=== PATIENT | female | born 1960 | race Caucasian/White ===

== ENCOUNTER 2016-09-12 11:19 | Inpatient (IN) | payer MEDICAID ==
[~2016-09-12] VITALS: Ht 162.6 cm; Wt 84.6 kg
[2016-09-12] MEDS ORDERED: CEFEPIME 2GM/50 ML (PMX) 50 ML IVPB STA (11:24)
[2016-09-12] MEDS ORDERED: ACETAMINOPHEN 325 MG TAB PO STA (11:24)
[2016-09-12] MEDS ORDERED: SODIUM CHLORIDE 0.9% 1L BAG IV* STA (11:24)
[2016-09-12] MEDS ORDERED: VANCOMYCIN 1 GM (PMX) 250 ML IVPB ONE (11:30)
--- NOTE | 2016-09-12 12:31 | RADRPT ---
PROCEDURE: XR Chest. CLINICAL INDICATION: Sepsis TECHNIQUE: A single AP view of the chest was obtained. COMPARISON: Chest x-ray dated 08/24/2013 FINDINGS: No focal airspace opacification, pleural effusion or pneumothorax is seen. The cardiomediastinal si lhouette is upper limits of normal in size. The osseous structures demonstrate senescent changes. IMPRESSION: No radiographic evidence of acute cardiopulmonary disease. No significant interval change. RPTAT: HH .Bianca Boyce MD, MD Date Time Electronically viewed and signed by .Bianca Boyce MD, on 09/12/2016 12:31 .G/
[2016-09-12 12:38] LABS: ADD UMIC YES; URINE BILIRUBIN (Dip) 3+ (NEGATIVE); URINE BLOOD (Dip) TRACE (NEGATIVE); URINE KETONES (Dip) TRACE (NEGATIVE); URINE LEUKOCYTE ESTERASE (Dip) NEGATIVE (NEGATIVE); URINE NITRITE (Dip) POSITIVE (NEGATIVE); URINE TOTAL PROTEIN (Dip) TRACE (NEGATIVE); URINE UROBILINOGEN (Dip) 1.0 E.U./dL (0.1-1.0)
[2016-09-12 12:42] LABS: ADD SCAN DIFF NO
[2016-09-12 12:47] LABS: ABNORMAL IP MESSAGE 1; BASOPHILS % 0.2 % (0.0-2.0); EOSINOPHILS % 0.4 % (0.0-7.0); HEMATOCRIT 28.3 % (37.0-47.0); HEMOGLOBIN 9.4 g/dl (12.0-16.0); LYMPHOCYTES # 0.5 10^3/ul (0.8-2.9); LYMPHOCYTES % 11.4 % (15.0-51.0); MEAN CORPUSCULAR HEMOGLOBIN 32.8 pg (29.0-33.0); MEAN CORPUSCULAR HGB CONC 33.2 g/dl (32.0-37.0); MEAN CORPUSCULAR VOLUME 98.6 fl (82.0-101.0); MEAN PLATELET VOLUME 12.4 fl (7.4-10.4); MONOCYTE # 0.3 10^3/ul (0.3-0.9); MONOCYTES % 6.7 % (0.0-11.0); NEUTROPHIL # 3.7 10^3/ul (1.6-7.5); NEUTROPHILS % 80.9 % (39.0-77.0); PLATELET COUNT 57 10^3/UL (140-415); RED BLOOD COUNT 2.87 10^6/ul (4.20-5.40); RED CELL DISTRIBUTION WIDTH 17.8 % (11.5-14.5); WHITE BLOOD COUNT 4.6 10^3/ul (4.8-10.8)
[2016-09-12 12:48] LABS: BACTERIA,URINE RARE; URINE RBCS 0-2 /HPF (0)
[2016-09-12 12:49] LABS: ICTOTEST POSITIVE (NEGATIVE)
[2016-09-12 12:56] LABS: ALBUMIN 2.2 g/dl (3.3-4.9)
[2016-09-12 12:57] LABS: CHLORIDE 108 mmol/L (97-110); POTASSIUM 4.6 mmol/L (3.5-5.1); SODIUM 138 mmol/L (135-144)
[2016-09-12 12:59] LABS: ALBUMIN/GLOBULIN RATIO 0.51; ANION GAP 16 (8-16); ASPARTATE AMINO TRANSFERASE 122 IU/L (15-46); BILIRUBIN,INDIRECT 2.1 mg/dl (0-1.1); BILIRUBIN,TOTAL 5.4 mg/dl (0.2-1.3); CARBON DIOXIDE 19 mmol/L (21-31); CREATININE 0.56 mg/dl (0.44-1.00); TOTAL PROTEIN 6.5 g/dl (6.1-8.1)
[2016-09-12 13:00] LABS: ALANINE AMINOTRANSFERASE 62 IU/L (13-69); ALKALINE PHOSPHATASE 228 IU/L (42-121); BLOOD UREA NITROGEN 10 mg/dl (7-20); CALCIUM 7.7 mg/dl (8.4-10.2); GLUCOSE 262 mg/dl (70-220)
[2016-09-12 13:01] LABS: INR 1.73; PROTIME 20.4 Sec (12.2-14.2); PT RATIO 1.6
[2016-09-12 13:02] LABS: MUCUS,URINE MANY; URINE COLOR AMBER (YELLOW)
[2016-09-12 13:04] LABS: PARTIAL THROMBOPLASTIN TIME 35.1 Sec (25.0-35.0)
--- NOTE | 2016-09-12 13:20 | RADRPT ---
PROCEDURE: US Abdomen. CLINICAL INDICATION: abdominal pain TECHNIQUE: Multiple real-time images were acquired of the patient's right upper quadrant abdomen a nd retroperitoneum utilizing a high resolution transducer. COMPARISON: None FINDINGS: The study is limited due to overlying bowel gas. The liver is not well seen. The liver demonstrates heterogeneous echogenicity. The liver is normal in size and no focal solid l esions are seen. The liver measures 14.8 cm in length. The portal vein is patent. No intrahepatic bi liary dilatation is seen. Multiple mobile gallstones are identified within the gallbladder. There is mild pericholecystic flu id . There is borderline gallbladder wall thickening, measuring 3 mm. The common bile duct measures 4 mm in maximal dimension. The visualized portions of the pancreas are unremarkable. The tail of the pancreas is not seen. No free fluid is identified. The right kidney is normal in size, and demonstrate normal echogenicity and cortical thickness. The right kidney measures 10.4 cm in long dimension. There is no evidence of hydronephrosis. There are no kidney stones. RPTAT: AA IMPRESSION: Limited study due to overlying bowel gas. Gallstones with mild pericholecystic fluid and borderline gallbladder wall thickening. Further evalu ation with a HIDA scan is recommended to rule out acute cholecystitis. Heterogeneous echogenicity of the liver. .Gerald Mcnally MD, Date Time Electronically viewed and signed by .Gerald Mcnally MD, on 09/12/2016 13:19 .S/
[2016-09-12 13:26] LABS: TROPONIN-I < 0.012 ng/ml (0.00-0.12)
--- NOTE | 2016-09-12 13:39 | ERA ---
ER Documentation Chief Complaint Date/Time DATE: 09/12/16 TIME: 13:35 Chief Complaint BIB RA FOR EVAL OF CHILLS AND NAUSEA FROM CLINIC. HPI Patient is a 48-year-old female with abdominal pain and jaundice. Please note the history and physical exam is limited secondary to patient's mental status at this time. The patient was brought in by ambulance. She had a pain of 8 out of 10. She says that she has a liver problem. Upon review of old medical records the patient had one previous visit to the ER in 2013. She does not know the name of her primary doctor. She does seem confused. ROS All systems reviewed and are negative except as per history of present illness. Medications Home Meds No Active Prescriptions or Reported Meds Allergies Allergies: Coded Allergies: No Known Allergy (Unverified , 08/24/13) PMhx/Soc Hx Miscellaneous Medical Probl: Yes (DM) Hx Alcohol Use: No Hx Substance Use: No Hx Tobacco Use: No Smoking Status: Never smoker FmHx Family History: diabetes Physical Exam Vitals Vital Signs Date Time Temp Pulse Resp B/P Pulse Ox O2 Delivery O2 Flow Rate FiO2 09/12/16 13:30 98.6 71 24 119/58 97 Room Air 09/12/16 11:25 Nasal Cannula 2 09/12/16 11:21 101.8 79 18 111/78 100 Physical Exam Const: Jaundice Head: Atraumatic Eyes: Normal Conjunctiva ENT: Normal External Ears, Nose and Mouth. Neck: Full range of motion..~ No meningismus. Resp: Clear to auscultation bilaterally Cardio: Regular rate and rhythm, no murmurs Abd: Diffuse tenderness to palpation without rebound or guarding Skin: Diffuse jaundice Back: No midline or flank tenderness Ext: No cyanosis, or edema Neur: Awake but confused Result Diagram: 09/12/16 1220 09/12/16 1220 Results 24 hrs Laboratory Tests Test 09/12/16 12:20 Activated Partial Thromboplast Time 35.1Sec Alanine Aminotransferase (ALT/SGPT) 62IU/L Albumin 2.2g/dl Albumin/Globulin Ratio 0.51 Alkaline Phosphatase 228IU/L Ammonia 99umol/l Anion Gap 16 Aspartate Amino Transf (AST/SGOT) 122IU/L Basophils # 0.010^3/ul Basophils % 0.2% Blood Urea Nitrogen 10mg/dl Calcium Level 7.7mg/dl Carbon Dioxide Level 19mmol/L Chloride Level 108mmol/L Creatinine 0.56mg/dl Direct Bilirubin 3.30mg/dl Eosinophils # 0.010^3/ul Eosinophils % 0.4% Globulin 4.30g/dl Glucose Level 262mg/dl Hematocrit 28.3% Hemoglobin 9.4g/dl INR International Normalized Ratio 1.73 Indirect Bilirubin 2.1mg/dl Lactic Acid Level 4.2mmol/L Lymphocytes # 0.510^3/ul Lymphocytes % 11.4% Mean Corpuscular Hemoglobin 32.8pg Mean Corpuscular Hemoglobin Concent 33.2g/dl Mean Corpuscular Volume 98.6fl Mean Platelet Volume 12.4fl Monocytes # 0.310^3/ul Monocytes % 6.7% Neutrophils # 3.710^3/ul Neutrophils % 80.9% Nucleated Red Blood Cells # 0.010^3/ul Nucleated Red Blood Cells % 0.0/100WBC Platelet Count 5710^3/UL Potassium Level 4.6mmol/L Prothrombin Time 20.4Sec Prothrombin Time Ratio 1.6 Red Blood Count 2.8710^6/ul Red Cell Distribution Width 17.8% Sodium Level 138mmol/L Total Bilirubin 5.4mg/dl Total Protein 6.5g/dl Troponin I < 0.012ng/ml Urine Bacteria RARE Urine Bilirubin 3+ Urine Clarity CLEAR Urine Color SISSY Urine Epithelial Cells RARE Urine Glucose 0.1%% Urine Hemoglobin TRACE Urine Ictotest POSITIVE Urine Ketones TRACE Urine Leukocyte Esterase NEGATIVE Urine Microscopic RBC 0-2/HPF Urine Microscopic WBC 0-2/HPF Urine Mucus MANY Urine Nitrite POSITIVE Urine Specific [place] >=1.030 Urine Total Protein TRACE Urine Urobilinogen 1.0 E.U./dL Urine pH 5.5 White Blood Count 4.610^3/ul Current Medications Medications (Trade) Dose Ordered Sig/Guilherme Route PRN Reason Start Time Stop Time Status Last Admin Dose Admin Sodium Chloride (NS) 2,330 ml BOLUS OVER 2 HOURS STAT IV* 09/12/16 11:24 09/12/16 11:26 DC 09/12/16 11:24 Acetaminophen 650 mg 650 mg ONCE STAT PO 09/12/16 11:24 09/12/16 11:26 DC 09/12/16 11:24 Cefepime HCl 50 ml @ 100 mls/hr ONCE STAT IVPB 09/12/16 11:24 09/12/16 11:53 DC 09/12/16 11:24 Vancomycin HCl (Vancocin) 250 ml @ 125 mls/hr ONCE ONCE IVPB 09/12/16 11:30 09/12/16 13:29 DC 09/12/16 13:12 Lactulose (Enulose) 20 gm ONCE ONCE PO 09/12/16 14:00 09/12/16 14:01 Ondansetron HCl (Zofran Inj) 4 mg BRIDGE ORDER PRN IV NAUSEA AND/OR VOMITING 09/12/16 14:00 09/13/16 13:59 Acetaminophen (Tylenol Tab) 650 mg ER BRIDGE PRN PO MILD PAIN/FEVER 09/12/16 14:00 09/13/16 13:59 Procedures/MDM EKG read by me: Rate/Rhythm: Regular rate and rhythm at a rate of 77 Intervals: Normal Impression: No evidence of ischemia or arrhythmia Chest x-ray negative per radiology. Ultrasound of the gallbladder shows gallstones, thickened gallbladder wall, and mild pericholecystic fluid per radiology. Admit MDM: Patient's infectious symptoms have not stabilized and the patient is at risk of rapid decompensation. The patient will be admitted for careful hydration, antibiotic therapy, and infectious source control. Severe Sepsis criteria: Infectious source: Cholangitis End organ damage indicated by: Lactate greater than 2 Sepsis Management: Time of recognition of sepsis: Upon arrival Within 3 hours of recognition: Blood cultures x 2 before broad-spectrum antibiotics: Yes 30 ml/kg NS bolus Completed Initial lactate 4.2 Repeat lactate pending Time of recognition of septic shock: 12:20 Septic Shock Assessment: Any lactic acid > 4.0 yes Persistent hypotension (SBP < 90 or 40 mmHg drop, MAP < 65) despite 30 mL/kg IV fluid bolus No Volume Re-assessment for Septic Shock (post 30 ml/kg bolus): Temp 98.6, BP 119/58, HR 71, RR 24, Pox 97% Heart Regular rate & rhythm Lungs No crackles Skin jaundice Cap Refill Less than 2 seconds Peripheral pulses Radially present Persistent Hypotension Treatment: Comfort care No Central line Not Required Vasopressor started Not required I considered further perfusion assessment with CVP measurement, SCVO2, bedside ultrasound volume assessment, passive leg raise, trial of further fluid bolus. And proceeded with 30 ml/kg fluid bolus of NSS, broad spectrum antibiotics, and admission. I spoke with Dr. Zarate from the paddle team for admission as the patient does not know her primary doctor has never been admitted before. I also spoke with Dr. Yo from general surgery who will see the patient in consultation. Accepting Care Team Current data and ongoing care discussed. Admitting Physician: Dr. Zarate Fitness Assistant(s): Dr. Yo Outstanding Data: Culture results and repeat lactic acid Critical Care: Critical care time 45 minutes excluding all billable procedures Emergent fluid management while maintaining close respiratory support. Provision of immediate and broad-spectrum antibiotic therapy. Simultaneous assessment for possible sources in order to direct targeted therapy. Consideration for invasive and chemical support to prevent cardiopulmonary collapse. Departure Diagnosis: Primary Impression: Septic shock Additional Impressions: Fever with chills Cholangitis Condition: Serious LAKEISHA MULLEN MD Sep 12, 2016 13:39
[2016-09-12] MEDS ORDERED: ACETAMINOPHEN 325 MG TAB PO PRN (14:00)
[2016-09-12] MEDS ORDERED: ONDANSETRON 4 MG INJ IV PRN ×2 (14:00→17:30)
[2016-09-12] MEDS ORDERED: LACTULOSE 30ML CUP PO ONE (14:00)
--- NOTE | 2016-09-12 14:22 | RADRPT ---
PROCEDURE: CT Abdomen and Pelvis without contrast. CLINICAL INDICATION: Abdominal pain TECHNIQUE: CT of the abdomen and pelvis was performed on a multi-detector scanner without IV contr ast. Coronal and sagittal images were reformatted from the axial data set. One or more of the foll owing dose reduction techniques were used: automated exposure control, adjustment of the mA and/or kV according to patient size, use of iterative reconstruction technique. CTDI = 18.6 mGy. DLP = 103 5.97 mGy-cm. COMPARISON: Ultrasound, 09/12/2016 FINDINGS: CT abdomen: The lung bases are clear. There is mild cardiomegaly, without pericardial effusion. The liver is c irrhotic, without gross evidence of focal hepatic mass. Cholelithiasis is seen, without evidence fo r cholecystitis. Common bile duct stent is in place. No biliary dilatation is identified. Splenom egaly is noted measuring 15 cm. Large perisplenic varices are noted. Pancreas, adrenal glands and kidneys are grossly unremarkable. No urolithiasis or obstructive uropathy is identified. The stoma ch is grossly unremarkable. The aorta is of normal caliber. There is no retroperitoneal lymphadenopathy. The albaro hepatis reg ion is clear. CT pelvis: Small amount of ascites is noted. No bowel obstruction, free intraperitoneal air or abscess is seen . Mild retained fecal material is suggestive of constipation. The appendix is well visualized and normal. There is no diverticulosis, diverticulitis or colitis. Urinary bladder, uterus and adnexa are grossly unremarkable. No pelvic mass or lymphadenopathy is seen. The surrounding osseous structures are remarkable for degenerative spondylosis of the spine. No ost eolytic or osteoblastic lesion is detected. IMPRESSION: 1. The liver is cirrhotic, with signs of portal hypertension including splenomegaly, large perisple dilma varices, and small amount of ascites. 2. Cholelithiasis is noted without evidence for cholecystitis. Common bile duct stent is in place. 3. There is mild cardiomegaly. 4. Mild retained fecal material may indicate constipation. 5. No mass or lymphadenopathy is identified. RPTAT: EE .Candelario Olivas MD, MD Date Time Electronically viewed and signed by .Candelario Olivas MD, on 09/12/2016 14:21 .R/
[2016-09-12] MEDS ORDERED: IBUPROFEN 800 MG TAB PO ONE (15:30)
[2016-09-12 16:30] VITALS: TEMP 100.5
[2016-09-12] MEDS ORDERED: VANCOMYCIN IV PER PHARMACY XX SCH (17:30)
[2016-09-12] MEDS ORDERED: GLUCOSE GEL 15 GRAM TUBE PO PRN ×2 (18:00)
[2016-09-12] MEDS ORDERED: GLUCOSE GEL 15 GRAM TUBE BUCCAL PRN (18:00)
[2016-09-12] MEDS ORDERED: PIPER-TAZO 3.375 GM IV (PMX) 100 ML IVPB SCH (18:00)
[2016-09-12] MEDS ORDERED: DEXTROSE 50% 50 ML SYRINGE IV PRN ×2 (18:00)
[2016-09-12] MEDS ORDERED: GLUCAGON 1 MG INJ IM PRN (18:00)
[2016-09-12 18:10] VITALS: BP 102/52; PULSE 82; RESP 82
[2016-09-12] MEDS ORDERED: VANCOMYCIN 500MG/NS (PMX) 100 ML IVPB SCH (18:15)
--- NOTE | 2016-09-12 18:26 | CONS ---
Date/Time of Note Date/Time of Note DATE: 09/12/16 TIME: 18:12 Assessment/Plan Assessment/Plan Additional Assessment/Plan Abdominal pain/nausea/vomiting * Likely secondary to pancreatitis * Elevated bilirubin * Rule out choledocholithiasis * IVF Hydration * Nausea and pain control * NPO till pain free * Review MRCP * ERCP if clinically indicated, pt advised of R/B/A of procedure and she provides informed consent to proceed * Monitor LFTs, amylase, lipase * Recommend Surgery consult Liver Cirrhosis Paracentesis prn Fluid cytology with paracentesis Review of hepatitis panel Diabetes Management per Primary GERD Continue PPI twice daily Further recommendations depend on clinical course Patient seen in collaboration with Dr. Singh Consultation Date/Type/Reason Admit Date/Time Sep 12, 2016 at 13:32 Initial Consult Date Type of Consultation: Gastroenterology Reason for Consultation Abdominal pain 24 HR Interval Summary Free Text/Dictation Mrs. Leti Enriquez is a 48-year-old female that presents to the ED with reports of worsening abdominal pain, nausea, vomiting for the last week. Patient states the last day symptoms worsened and was unable to complete office visit to primary care provider. Patient has history of hyperbilirubinemia and status post ERCP with stent placement [facility] roughly 1 month ago. Per patient's daughter she also had liver biopsy. CT notes liver cirrhosis. Patient and daughter deny a history of alcohol abuse, chemical exposure, blood transfusion outside of the [place], and IV drug use. Patient's daughter also reports history of intermittent anxieties but denies paracentesis. Patient's daughter reports that liver biopsy to rule out liver cancer workup was in process at [facility]. At bedside patient also reports chills. She denies diarrhea, fever, hematemesis, shortness of breath, chest pain, and dysuria. Patient states at last hospitalization a cholecystectomy at [facility] was not recommended. Exam/Review of Systems Vital Signs Vitals Vital Signs Date Time Temp Pulse Resp B/P Pulse Ox O2 Delivery O2 Flow Rate FiO2 09/12/16 16:30 100.5 81 17 104/56 100 Room Air 09/12/16 11:25 2 Exam Constitutional: alert, oriented, well developed Psych: nl mood/affect Head: normocephalic Eyes: EOMI, nl conjunctiva, nl lids ENMT: nl external ears & nose, nl lips & teeth, nl nasal mucosa & septum Respiratory: clear to auscultation, normal air movement Cardiovascular: regular rate and rhythm Gastrointestinal: soft, epigastric and right upper quadrant tender Musculoskeletal: nl extremities to inspection Neurological: ROPE MACHINE SETTER II-XII 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 Results Result Diagram: 09/12/16 1220 09/12/16 1220 Results 24 hrs Laboratory Tests Test 09/12/16 12:20 09/12/16 14:20 09/12/16 17:23 Activated Partial Thromboplast Time 35.1 H Alanine Aminotransferase (ALT/SGPT) 62 Albumin 2.2 L Albumin/Globulin Ratio 0.51 Alkaline Phosphatase 228 H Ammonia 99 H Anion Gap 16 Aspartate Amino Transf (AST/SGOT) 122 H Basophils # 0.0 Basophils % 0.2 Blood Urea Nitrogen 10 Calcium Level 7.7 L Carbon Dioxide Level 19 L Chloride Level 108 Creatinine 0.56 Direct Bilirubin 3.30 H Eosinophils # 0.0 Eosinophils % 0.4 Globulin 4.30 H Glucose Level 262 H Hematocrit 28.3 L Hemoglobin 9.4 L INR International Normalized Ratio 1.73 Indirect Bilirubin 2.1 H Lactic Acid Level 4.2 *H 1.3 Lymphocytes # 0.5 L Lymphocytes % 11.4 L Mean Corpuscular Hemoglobin 32.8 Mean Corpuscular Hemoglobin Concent 33.2 Mean Corpuscular Volume 98.6 Mean Platelet Volume 12.4 H Monocytes # 0.3 Monocytes % 6.7 Neutrophils # 3.7 Neutrophils % 80.9 H Nucleated Red Blood Cells # 0.0 Nucleated Red Blood Cells % 0.0 Platelet Count 57 L Potassium Level 4.6 Prothrombin Time 20.4 H Prothrombin Time Ratio 1.6 Red Blood Count 2.87 L Red Cell Distribution Width 17.8 H Sodium Level 138 Total Bilirubin 5.4 H Total Protein 6.5 Troponin I < 0.012 Urine Bacteria RARE Urine Bilirubin 3+ H Urine Clarity CLEAR Urine Color SISSY Urine Epithelial Cells RARE Urine Glucose 0.1% H Urine Hemoglobin TRACE Urine Ictotest POSITIVE Urine Ketones TRACE H Urine Leukocyte Esterase NEGATIVE Urine Microscopic RBC 0-2 Urine Microscopic WBC 0-2 Urine Mucus MANY Urine Nitrite POSITIVE H Urine Specific [place] >=1.030 H Urine Total Protein TRACE Urine Urobilinogen 1.0 E.U./dL Urine pH 5.5 White Blood Count 4.6 L Bedside Glucose 239 H Medications Medications Current Medications Piperacillin Sod/ Tazobactam Sod (Zosyn 3.375gm/ 100 ml (Pmx)) 100 ml @ 200 mls /hr Q8 IVPB ; Start 09/12/16 at 22:00; Status UNV Ondansetron HCl (Zofran Inj) 4 mg Q6H PRN IV NAUSEA AND/OR VOMITING; Start 09/12 at 17:30; Status UNV Pantoprazole (Protonix Iv) 40 mg DAILY@06 IV ; Start 09/13/16 at 06:00; Status UNV Docusate Sodium 100 mg 100 mg BID PO ; Start 09/12/16 at 21:00; Status UNV Sodium Chloride (NS) 1,000 ml @ 125 mls/hr Q8H IV ; Start 09/12/16 at 17:30; Status UNV Miscellaneous Information (* Miscellaneous Pharmacy Order) HYPOGLYCEMIA PROTOCOL w... ONCE ONCE XX ; Start 09/12/16 at 17:30; Stop 09/12/16 at 17:31; Status UNV Miscellaneous Information (* Miscellaneous Pharmacy Order) Discontinue Glyburide , Glipizide,... ONCE ONCE XX ; Start 09/12/16 at 17:30; Stop 09/12/16 at 17:31; Status UNV Miscellaneous Information (* Miscellaneous Pharmacy Order) Discontinue all previ... ONCE ONCE XX ; Start 09/12/16 at 17:30; Stop 09/12/16 at 17:31; Status UNV JULITO STARKS Sep 12, 2016 18:25
[2016-09-12] MEDS: SOD CHLORIDE 0.9% 1,000 ML IV SCH (18:41)
[2016-09-12] MEDS: INSULIN ASPART [NOVOLOG] 3 ML PEN SC SCH ×2 (18:42→22:08)
[2016-09-12 18:57] LABS: CK-MB 0.3 ng/ml (0.0-2.4)
[2016-09-12 19:00] LABS: TROPONIN-I 0.019 ng/ml (0.00-0.12)
[2016-09-12 20:21] VITALS: BP 110/51; RESP 19
[2016-09-12] MEDS: PANTOPRAZOLE 40 MG INJ IV SCH (20:36)
[2016-09-12] MEDS: DOCUSATE SODIUM 100 MG CAP PO SCH (20:36)
[2016-09-12 21:31] LABS: HAAIG REFLEX REFLEX FILED
[2016-09-12 21:50] LABS: ALANINE AMINOTRANSFERASE 51 IU/L (13-69); AMYLASE 37 U/L (11-123); ASPARTATE AMINO TRANSFERASE 104 IU/L (15-46)
[2016-09-12 23:34] LABS: HEPATITIS B CORE ANTIBODY NEGATIVE (NEGATIVE)
[2016-09-13] VITALS (9 sets, daily range): BP systolic 92–145; BP diastolic 41–67; PULSE 60–70; RESP 16–19; Ht 162.6 cm; Wt 84.6 kg
[2016-09-13 01:53] LABS: CK-MB 0.92 ng/ml (0.0-2.4)
[2016-09-13 01:56] LABS: TROPONIN-I 0.034 ng/ml (0.00-0.12)
[2016-09-13] MEDS: PIPER-TAZO 3.375 GM IV (PMX) 100 ML IVPB SCH ×3 (05:40→22:14)
[2016-09-13] MEDS: SOD CHLORIDE 0.9% 1,000 ML IV SCH ×2 (05:42→09:30)
[2016-09-13] MEDS: PANTOPRAZOLE 40 MG INJ IV SCH ×2 (05:46→18:00)
[2016-09-13] MEDS ORDERED: VANCOMYCIN 1.25 GM in SOD CHLORIDE 0.9% 250 ML IVPB SCH (06:00)
[2016-09-13] MEDS ORDERED: PANTOPRAZOLE 40 MG INJ IV SCH (06:00)
[2016-09-13] MEDS: morphine 4 MG/ML VIAL IV PRN ×2 (06:36→10:38)
[2016-09-13] MEDS ORDERED: CEFAZOLIN 1 GM INJ ONE (07:00)
[2016-09-13] MEDS ORDERED: LIDOCAINE 2% (SDV) 5 ML INJ ONE (07:00)
--- NOTE | 2016-09-13 07:06 | HP ---
DATE OF ADMISSION: 09/12/2016 PRESENTING COMPLAINT: Chills, nausea and abdominal pain. HISTORY OF PRESENTING COMPLAINT: Ms. Leti Enriquez is a Prydein[place]-speaking only female, a 56-year-o ld, who presents to us, being referred from as an outpatient because of fever, chills and severe jaundice. Of note is that this patient was recently managed at [facility] about a m onth ago for liver disease and at that time she ultimately had a liver biopsy and she had a common b ile duct stent placed because of severe jaundice. Per the daughter, the liver biopsy was inconclusi ve and the patient was supposed to follow up for further care. , from where she was referred to the emergency room here. She was found to be septic in our ER and is being admitted for further workup and management. The patient's complaint is nausea and severe abdominal pain in the epigastric and right upper quadrant regions, as well as severe jaundice and reduced urinary output. Other oral n that, she denies chest pain. She denies cough. She denies passing out episodes. They have not n oticed any change in her mentation. PAST MEDICAL HISTORY: Positive for diabetes mellitus and now chronic liver cirrhosis, for which the cause is unclear. PAST SURGICAL HISTORY: x1 only, and CBD stent placement. ALLERGIES: NO KNOWN DRUG ALLERGIES. SOCIAL HISTORY: The patient has never smoked, never drank alcohol. Denies illicit drug use. FAMILY HISTORY: Negative. REVIEW OF SYSTEMS: Review of systems was done and pertinent findings are as in the HPI. PHYSICAL EXAMINATION: VITAL SIGNS: Her temperature when she first came in was 101.8, pulse 79, respirations 18, blood pre ssure 111/70, saturations 100% on oxygen via nasal cannula at 2 liters a minute. At the time of my review temperature is 100.5, pulse 81, respirations 17, blood pressure 104/56, sat urations are 100% on room air. GENERAL EXAMINATION: She was visibly jaundiced in her skin and her sclerae. HEENT: Head normocephalic. No evidence of trauma. She was calm, cooperative with the exam. Mucus membranes were dry. Posterior pharynx was clear of exudate. NECK: Supple, nontender. The patient was warm to touch. CHEST: Clear to auscultation. Good air entry on both sides. CARDIOVASCULAR: S1 and S2. ABDOMEN: Tender in the epigastric and right upper quadrant areas, although soft. She did have norm al active bowel sounds. EXTREMITIES: Lower extremities with mild edema bilaterally. NEUROLOGIC: No focal deficits noted. PSYCHIATRIC: She was cooperative with the exam. In the emergency room she was given Motrin, lactulose, vancomycin, cefepime and Tylenol. LABORATORY VALUES: She has a leukopenia of 4.6, hemoglobin normocytic normochromic, but low at 9.7. Her platelet count was markedly reduced at 57. She had 80% neutrophilia, without bandemia. Lacti c acid was elevated at 4.2. Her glucose was elevated at 262. Calcium was a little low at 7.7. Douglas irubin was elevated at 5.02 total, direct 3.3, indirect 2.1. AST was just about double ALT, at 122 a nd 62. Alkaline phosphatase was elevated at 288. Ammonia level was also elevated at 99. INR was e levated at 1.7. PT and PTT were also concurrently elevated. Albumin was low at 2.2, and urinalysis was nitrite positive, glucose positive, 0 to 2 white cells, rare bacteria and trace hemoglobin and ketones. EKG was normal sinus rhythm with tachycardia. Chest x-ray was unremarkable on my review. Ultrasound of the gallbladder showed gallstones, mild pe richolecystic fluid and gallbladder wall thickening. CT of the abdomen showed a cirrhotic liver wit h portal hypertension, splenomegaly and varices, as well as small ascites. It does show cholelithia sis without cholecystitis, of the CBD stent in place, cardiomegaly, as well as some constipati on. ASSESSMENT: 1. Sepsis. The source could be an infected CBD stent versus a urinary tract infection. 2. Hyperammonemia without hepatic encephalopathy. 3. Chronic anemia. 4. Chronic liver cirrhosis, source unclear, with evidence of obstruction. 5. Cholelithiasis, without imaging evidence of cholecystitis at this time. 6. Diabetes mellitus type 2, with suboptimal control. PLAN: At this point, I believe that the CBD stone needs to be assessed and probably removed for cul tures, so a gastroenterology consultation has been obtained, and blood cultures as well as urine cul tures have been sent. The patient was started on antipyretics, aggressive IV fluid hydration and br oad spectrum antibiotics. I have spoken with GI and will defer to their recommendations for further management. In the interim though, the patient would benefit from serial labs, lactulose therapy, and will try to obtain reports from [facility] regarding the biopsy findings, as well as the circums tances surrounding CBD stent placement. Dr. Yo has been consulted from the surgical team for pr obable cholecystectomy and I have spoken with Dr. Joie Singh from the GI team for probable ERCP. It would be interesting to find out the cause for the patient's cirrhosis and the patient may requir e a repeat biopsy if the previous biopsy results are not available. However, again, I will defer to the specialist for further recommendations. An infectious disease consult will also be obtained fo r aggressive antibiotic therapy. Please note that acute cholangitis is also significant differentia l in the management of this patient. She is quite ill and in serious condition and we will have to keep a real close eye on her. For prophylaxis, she has severe coagulopathy already. She will be on SCDs only, and will have to provide vitamin K and FFP if we find any evidence of bleeding. She will be put on IV PPI and will be admitted as she does have varices. I will keep a close eye on these as well. I have spoken with the patient's daughter in detail, I have spoken with and a nswered questions. Admission time was more than 1 hour. Dictated By: LOU BUSTOS MD, BA/MARILYN Conf#: [id number] DID#: [id number]
--- NOTE | 2016-09-13 07:12 | CONS ---
DATE OF ADMISSION: 09/12/2016 DATE OF CONSULTATION: 09/12/2016 TYPE OF CONSULTATION: General Surgery REASON FOR CONSULTATION: Gallstones and jaundice. HISTORY OF PRESENT ILLNESS: The patient is a 48-year-old female who has liver cirrhosis and ascites. She is a patient at [facility] and approximately a month ago underwent an ERCP with stent placement for jaundice as well as a liver biopsy. She also has known gallstones. She was brought here by paramedics today because of intractable nausea and vomiting as well as confusion. She was noted to be deeply icteric, and imaging showed gallstones without ductal dilatation. She was admitted and seen in GI consultation. She has, according to her children, improved slightly since she has arrived. OUTPATIENT MEDICATIONS: Unknown. ALLERGIES: NONE. REVIEW OF SYSTEMS: The patient as noted above includes the fact that the patient is awaiting placement for liver transplant. PHYSICAL EXAMINATION: GENERAL: The patient is a 56-year-old German-speaking female who is deeply icteric. HEAD, EARS, EYES, NOSE, AND THROAT sclerae icterus. LUNGS: Clear. ABDOMEN: Soft and nontender. EXTREMITIES: Unremarkable. LABORATORY DATA: The patient's hematocrit is 28.3 with a white count of 4600 with slight left shift with 80.9 polys. Bilirubin is 5.4. Lactic acid is 5.8, ammonia is 112. INR is 1.73. IMPRESSION: This patient has liver failure from ascites and is pending being placed on liver transplant list. There is no role for surgery for gallstones in this setting. She has been seen, and further recommendations are pending GI consultation and further imaging. I will follow with you. Dictated By: KATHERYN CROOK/MARILYN Conf#: [id number] DID#: [id number] MTDD
[2016-09-13 07:46] LABS: AMYLASE 42 U/L (11-123)
[2016-09-13] MEDS: INSULIN ASPART [NOVOLOG] 3 ML PEN SC SCH ×4 (08:00→20:37)
[2016-09-13] MEDS: DOCUSATE SODIUM 100 MG CAP PO SCH ×2 (08:20→20:36)
[2016-09-13 08:43] LABS: ADD SCAN DIFF NO
[2016-09-13 08:47] LABS: ALBUMIN 1.7 g/dl (3.3-4.9)
[2016-09-13 08:48] LABS: POTASSIUM 3.7 mmol/L (3.5-5.1)
[2016-09-13 08:50] LABS: ALBUMIN/GLOBULIN RATIO 0.44; BILIRUBIN,DIRECT 4.9 mg/dl (0.00-0.20); BILIRUBIN,TOTAL 6.9 mg/dl (0.2-1.3); CREATININE 0.99 mg/dl (0.44-1.00); TOTAL PROTEIN 5.5 g/dl (6.1-8.1)
[2016-09-13 08:51] LABS: CHOL/HDL RATIO 9.8 RATIO; MAGNESIUM 1.6 mg/dl (1.7-2.5)
[2016-09-13 09:14] LABS: ABNORMAL IP MESSAGE 1; BASOPHILS % 0.1 % (0.0-2.0); EOSINOPHILS # 0.1 10^3/ul (0.0-0.5); EOSINOPHILS % 0.7 % (0.0-7.0); HEMOGLOBIN 8.3 g/dl (12.0-16.0); LYMPHOCYTES % 12.7 % (15.0-51.0); MEAN CORPUSCULAR HEMOGLOBIN 33.7 pg (29.0-33.0); MEAN CORPUSCULAR HGB CONC 33.2 g/dl (32.0-37.0); MEAN CORPUSCULAR VOLUME 101.6 fl (82.0-101.0); MEAN PLATELET VOLUME 12.8 fl (7.4-10.4); MONOCYTE # 0.5 10^3/ul (0.3-0.9); MONOCYTES % 5.7 % (0.0-11.0); NEUTROPHIL # 6.5 10^3/ul (1.6-7.5); NEUTROPHILS % 80.6 % (39.0-77.0); RED BLOOD COUNT 2.46 10^6/ul (4.20-5.40); RED CELL DISTRIBUTION WIDTH 18.4 % (11.5-14.5)
[2016-09-13 09:18] LABS: PLATELET COUNT 58 10^3/UL (140-415)
--- NOTE | 2016-09-13 09:48 | RADRPT ---
PROCEDURE: MRCP. CLINICAL INDICATION: Right upper quadrant pain. Cholangitis. Evaluate biliary obstruction. TECHNIQUE: MRCP was performed on the a high-resolution, high Thania field strength scanner. Patien t was examined without contrast. 3-D coronal rotating MIP images of the biliary tree are available for review. COMPARISON: CT abdomen and pelvis 09/12/2016 FINDINGS: There are multiple sub centimeter gallstones layering in the gallbladder. There is no distension of the gallbladder. There is mild wall thickening of the gallbladder. There is a small sized liver w ith surface nodularity in keeping with cirrhosis. There is stigmata of portal hypertension with izabel dence of moderate splenomegaly, large perisplenic varices and splenorenal shunt and trace ascites. There is mild diffuse intrahepatic biliary ductal dilatation. Common bile duct is not well visualiz ed due to presence of the CBD stent but does not appear to be dilated. IMPRESSION: 1. Multiple sub centimeter gallstones layering in the neck of the gallbladder. Mild diffuse wall t hickening of the gallbladder which could be related to underlying cirrhosis. No distension of the g allbladder. 2. Mild diffuse intrahepatic biliary ductal dilatation. Limited visualization of the CBD related t o existing CBD stent without significant extrahepatic biliary ductal dilatation. 3. Morphologic changes of cirrhosis. Stigmata of portal hypertension with evidence of moderate spl enomegaly, large perisplenic varices and splenorenal shunt and trace ascites. RPTAT: BB .Ryan Guan MD, Date Time Electronically viewed and signed by .Ryan Guan MD, on 09/13/2016 09:47 .O/
[2016-09-13 10:57] LABS: INR 2.39; PROTIME 26.4 Sec (12.2-14.2); PT RATIO 2.1
[2016-09-13 11:58] LABS: PARTIAL THROMBOPLASTIN TIME 45.4 Sec (25.0-35.0)
[2016-09-13] MEDS ORDERED: INDOMETHACIN 50 MG SUPP PR ONE (12:00)
--- NOTE | 2016-09-13 14:28 | PN ---
Date/Time of Note Date/Time of Note DATE: 09/13/16 TIME: 14:22 Assessment/Plan VTE Prophylaxis VTE Prophylaxis Intervention: SCD's VTE Contraindication Reason: thrombocytopenia Lines/Catheters IV Catheter Type (from Nrsg): Peripheral IV Assessment/Plan Assessment/Plan 1. Sepsis. The source could be cholangitis / an infected CBD stent versus a urinary tract infection. 2. Hyperammonemia without hepatic encephalopathy. 3. Chronic anemia. 4. Chronic liver cirrhosis, cause unclear, with evidence of obstruction. 5. Cholelithiasis, without imaging evidence of cholecystitis at this time. 6. Diabetes mellitus type 2, with suboptimal control. PLAN: * continue broad spectrum abx and IV hydration * ERCP planned for this afternoon, hopefully with biopsies * f/u records from [facility] * Patient is being worked up for eventual liver transplant per family * FFP transfusion for worsening coagulopathy * Liver function worsening * Continue SSI PROPHYLAXIS: PPI / SCDs Subjective 24 Hr Interval Summary Free Text/Dictation still having mild abd pain Exam/Review of Systems Vital Signs Vitals Vital Signs Date Time Temp Pulse Resp B/P Pulse Ox O2 Delivery O2 Flow Rate FiO2 09/13/16 09:56 60 112/54 09/13/16 07:53 97.5 17 98 09/12/16 18:10 Room Air 09/12/16 11:25 2 Intake and Output 09/12/16 09/12/16 09/13/16 15:00 23:00 07:00 Intake Total 50 ml 350 ml 1340 ml Balance 50 ml 350 ml 1340 ml Exam GENERAL EXAMINATION: She was visibly jaundiced in her skin and her sclerae. HEENT: Head normocephalic. No evidence of trauma. She was calm, cooperative with the exam. Mucus membranes were dry. Posterior pharynx was clear of exudate. NECK: Supple, nontender. The patient was warm to touch. CHEST: Clear to auscultation. Good air entry on both sides. CARDIOVASCULAR: S1 and S2. ABDOMEN: Tender in the epigastric and right upper quadrant areas, although soft. She did have normal active bowel sounds. EXTREMITIES: Lower extremities with mild edema bilaterally. NEUROLOGIC: No focal deficits noted. PSYCHIATRIC: She was cooperative with the exam. Results Result Diagram: 09/13/16 0610 09/13/16 0610 Results 24 hrs Laboratory Tests Test 09/12/16 17:23 09/12/16 18:03 09/12/16 20:35 09/12/16 21:00 Bedside Glucose 239 H 209 Ammonia 112 H Creatine Kinase 42 Creatine Kinase Index 0.7 Creatinine Kinase MB (Mass) 0.30 Lactic Acid Level 5.8 *H Troponin I 0.019 Alanine Aminotransferase (ALT/SGPT) 51 Amylase Level 37 Aspartate Amino Transf (AST/SGOT) 104 H Hepatitis B Core Total Antibody NEGATIVE Hepatitis B Surface Antigen NEGATIVE Hepatitis C Antibody NEGATIVE Lipase 136 Test 09/13/16 00:18 09/13/16 02:12 09/13/16 06:10 09/13/16 07:40 Creatine Kinase 59 Creatine Kinase Index 1.6 Creatinine Kinase MB (Mass) 0.92 Troponin I 0.034 Bedside Glucose 158 126 Alanine Aminotransferase (ALT/SGPT) 61 Albumin 1.7 L Albumin/Globulin Ratio 0.44 Alkaline Phosphatase 169 H Amylase Level 42 Anion Gap 15 Aspartate Amino Transf (AST/SGOT) 113 H Basophils # 0.0 Basophils % 0.1 Blood Urea Nitrogen 18 Calcium Level 7.0 L Carbon Dioxide Level 19 L Chloride Level 110 Cholesterol Level 98 L Cholesterol/HDL Ratio 9.8 Creatinine 0.99 Direct Bilirubin 4.90 #H Eosinophils # 0.1 Eosinophils % 0.7 Globulin 3.80 H Glucose Level 115 # HDL Cholesterol 10 L Hematocrit 25.0 L Hemoglobin 8.3 L Hemoglobin A1c 7.9 H Indirect Bilirubin 2.0 H LDL Cholesterol, Calculated 67 Lipase 53 Lymphocytes # 1.0 Lymphocytes % 12.7 L Magnesium Level 1.6 L Mean Corpuscular Hemoglobin 33.7 H Mean Corpuscular Hemoglobin Concent 33.2 Mean Corpuscular Volume 101.6 H Mean Platelet Volume 12.8 H Monocytes # 0.5 Monocytes % 5.7 Neutrophils # 6.5 Neutrophils % 80.6 H Nucleated Red Blood Cells # 0.0 Nucleated Red Blood Cells % 0.0 Platelet Count 58 L Potassium Level 3.7 Red Blood Count 2.46 L Red Cell Distribution Width 18.4 H Sodium Level 140 Total Bilirubin 6.9 H Total Protein 5.5 #L Triglycerides Level 104 White Blood Count 8.0 # Test 09/13/16 09:57 09/13/16 11:27 09/13/16 11:37 Activated Partial Thromboplast Time 45.4 H INR International Normalized Ratio 2.39 Prothrombin Time 26.4 #H Prothrombin Time Ratio 2.1 Lactic Acid Level 1.3 Bedside Glucose 101 Medications Medications Current Medications Ondansetron HCl (Zofran Inj) 4 mg Q6H PRN IV NAUSEA AND/OR VOMITING; Start 09/12 at 17:30 Docusate Sodium 100 mg 100 mg BID PO Last administered on 09/12/16 20:36; Admin Dose 100 MG; Start 09/12/16 at 21:00 Sodium Chloride (NS) 1,000 ml @ 125 mls/hr Q8H IV Last administered on 05:42; Admin Dose 125 MLS/HR; Start 09/12/16 at 17:30 Miscellaneous Information 1 ea NOTE XX ; Start 09/12/16 at 18:00 Glucose (Glutose) 15 gm Q15M PRN PO DECREASED GLUCOSE; Start 09/12/16 at 18:00 Glucose (Glutose) 22.5 gm Q15M PRN PO DECREASED GLUCOSE; Start 09/12/16 at 18:00 Dextrose (D50w Syringe) 25 ml Q15M PRN IV DECREASED GLUCOSE; Start 09/12/16 at 18:00 Dextrose (D50w Syringe) 50 ml Q15M PRN IV DECREASED GLUCOSE; Start 09/12/16 at 18:00 Glucagon (Glucagen) 1 mg Q15M PRN IM DECREASED GLUCOSE; Start 09/12/16 at 18:00 Glucose (Glutose) 15 gm Q15M PRN BUCCAL DECREASED GLUCOSE; Start 09/12/16 at 18: 00 Pantoprazole 40 mg 40 mg BID@06,18 IV Last administered on 09/13/16 05:46; Admin Dose 40 MG; Start 09/12/16 at 21:00 Piperacillin Sod/ Tazobactam Sod (Zosyn 3.375gm/ 100 ml (Pmx)) 100 ml @ 200 mls /hr Q8 IVPB Last administered on 09/13/16 12:52; Admin Dose 200 MLS/HR; Start 09/13/16 at 06:00 Morphine Sulfate 4 mg 4 mg Q4H PRN IV PAIN LEVEL 7-10 Last administered on 09/13 10:38; Admin Dose 4 MG; Start 09/13/16 at 06:00 Vancomycin HCl/ Sodium Chloride (Vancocin/NS) 250 ml @ 83.333 mls/ hr Q24H IVPB ; Start 09/14/16 at 06:00 Procedures Procedures PROCEDURE: MRCP. CLINICAL INDICATION: Right upper quadrant pain. Cholangitis. Evaluate biliary obstruction. TECHNIQUE: MRCP was performed on the a high-resolution, high Thania field strength scanner. Patient was examined without contrast. 3-D coronal rotating MIP images of the biliary tree are available for review. COMPARISON: CT abdomen and pelvis 09/12/2016 FINDINGS: There are multiple sub centimeter gallstones layering in the gallbladder. There is no distension of the gallbladder. There is mild wall thickening of the gallbladder. There is a small sized liver with surface nodularity in keeping with cirrhosis. There is stigmata of portal hypertension with evidence of moderate splenomegaly, large perisplenic varices and splenorenal shunt and trace ascites. There is mild diffuse intrahepatic biliary ductal dilatation. Common bile duct is not well visualized due to presence of the CBD stent but does not appear to be dilated. IMPRESSION: 1. Multiple sub centimeter gallstones layering in the neck of the gallbladder. Mild diffuse wall thickening of the gallbladder which could be related to underlying cirrhosis. No distension of the gallbladder. 2. Mild diffuse intrahepatic biliary ductal dilatation. Limited visualization of the CBD related to existing CBD stent without significant extrahepatic biliary ductal dilatation. 3. Morphologic changes of cirrhosis. Stigmata of portal hypertension with evidence of moderate splenomegaly, large perisplenic varices and splenorenal shunt and trace ascites. LOU BUSTOS Sep 13, 2016 14:27
[2016-09-13] MEDS ORDERED: PHYTONADIONE 10 MG in DEXTROSE 5% 50 ML IVPB ONE (15:00)
[2016-09-13] MEDS ORDERED: MAGNESIUM SULFATE 2 GM/50 ML 50 ML IVPB ONE (15:00)
--- NOTE | 2016-09-13 16:32 | PN ---
DATE: 09/13/2016 There is no significant change. The patient has been seen in GI consultation. She is deeply icteri c, awaiting ERCP. There are no further surgical recommendations. I will sign off and see again p.r .n. at your request. Dictated By: KATHERYN CROOK/NTS Conf#: [id number] DID#: [id number]
[2016-09-13] MEDS ORDERED: IOHEXOL 300MG/ML 30 ML BTL ONE (17:40)
[2016-09-13] MEDS ORDERED: PHENYLephrine (100 MCG/ML) 5ML SYG ONE (18:53)
[2016-09-13] MEDS ORDERED: HYDROmorphONE (0.2 MG/ML) 10ML SYG IV PRN ×2 (19:30)
[2016-09-13] MEDS ORDERED: FENTAnyl 50 MCG/ML VIAL IV PRN (19:30)
[2016-09-13] MEDS ORDERED: PROPOFOL 20 ML ONE (19:30)
[2016-09-13] MEDS ORDERED: DIPHENHYDRAMINE 50 MG INJ IV PRN (19:30)
[2016-09-13] MEDS ORDERED: SUCCINYLCHOLINE CHLORIDE 100 MG/5 ML SYG IV ONE (19:30)
[2016-09-13] MEDS ORDERED: ONDANSETRON 4 MG INJ IV PRN (19:30)
[2016-09-13] MEDS ORDERED: MEPERIDINE 25 MG INJ IV PRN (19:30)
[2016-09-13] MEDS ORDERED: ETOMIDATE 20 MG INJ ONE (19:30)
[2016-09-14] MEDS: SOD CHLORIDE 0.9% 1,000 ML IV SCH ×3 (05:22→20:12)
[2016-09-14] MEDS: PANTOPRAZOLE 40 MG INJ IV SCH ×2 (05:22→17:02)
[2016-09-14] MEDS: PIPER-TAZO 3.375 GM IV (PMX) 100 ML IVPB SCH ×3 (05:22→20:19)
[2016-09-14] MEDS ORDERED: VANCOMYCIN 1.25 GM in SOD CHLORIDE 0.9% 250 ML IVPB SCH (06:00)
--- NOTE | 2016-09-14 06:24 | GILP ---
DATE OF PROCEDURE: PROCEDURE: Endoscopic retrograde cholangiopancreatography with biliary plastic stent removal and in sertion of a fully covered Wallstent. BRIEF HISTORY AND INDICATIONS: The patient with a history of hepatocellular carcinoma, recently pro basilia with biopsy. The patient has had 2 ERCPs, with placement of biliary stents for an area of high- grade obstruction at the hilum of the liver over the bifurcation. The patient is hospitalized with a fever and jaundice, suggesting occlusion of stent. PREMEDICATION: General anesthesia by the anesthesiologist. SURGEON: Chanelle Singh MD. INSTRUMENT USED: Olympus side-viewing panendoscope. TECHNIQUE: After informed consent, with the patient/relatives understanding the procedure, its indic ations, potential risks and complications, including but not limited to: allergic reaction, bleeding , perforation or infection, and after all pertinent questions were answered to the patients satisfac tion, the patient/relatives signed witnessed informed consent. Following this, premedication was administered slowly IV push under careful cardiovascular and respi ratory monitoring with pulse oximetry, automatic blood pressure and chef's assistant. Once the sedative effect was achieved the patient was place in the prone position in the radiology s pecial procedures suite; the side viewing panendoscope was introduced and advanced under visual cont rol. Careful examination of the upper gastrointestinal tract, both on insertion as well as withdrawal of the instrument disclosed the following findings: FINDINGS: ESOPHAGUS: The mucosa of the entire esophagus appears within normal limits. There is no evidence of esophagitis, varices, neoplasm or stricture. No Hiatal Hernia identified. STOMACH: Upon entrance to the stomach air was insufflated, the gastric naylor distended normally. The mucosa of the fundus, body and antrum of the stomach was carefully examined both head-on and on ret roflexion, and shows no abnormalities. There is no evidence of gastritis, ulcers or neoplasm. PYLORUS: The pylorus appears patent and within normal limits, with no evidence of gastric outlet obs truction. DUODENUM: The instrument was advanced to the second portion of the duodenum, where the ampulla was identified. A stent is seen exiting the ampulla. The stent appears to be clogged. A cannula was i nserted adjacent to the stent and cholangiogram was obtained. There is no flow in the stent, sugges ting total occlusion of the stent. At this point the cannula was retrieved. A snare was brought in and the stent was secured and retrieved. Following this, cholangiogram was obtained, which showed, indeed, an area of significant narrowing in the proximal hepatic duct, including the bifurcation. A balloon catheter was utilized and a viable area communicating with the right lobe of the liver was identified. Following this, a 10 x 80-mm fully covered Wallstent was introduced and deployed witho ut difficulty and with excellent drainage. The patient tolerated the procedure well. IMPRESSION: 1. Occluded plastic biliary stent removed. 2. 10 x 80-mm covered Wallstent placed without problems. PLAN: Observation. Monitor liver function tests. Dictated By: CHANELLE MEDINA Conf#: [id number] DID#: [id number]
[2016-09-14 07:20] VITALS: BP 102/49; RESP 16
[2016-09-14 08:16] LABS: ADD SCAN DIFF NO
--- NOTE | 2016-09-14 08:20 | RADRPT ---
PROCEDURE: Intraoperative imaging for ERCP with fluoroscopy. CLINICAL INDICATION: Right upper quadrant pain. Intraoperative. TECHNIQUE: 14 images of the right upper quadrant of the abdomen were obtained in the operating serenity m with an image intensifier. No radiologist was in attendance. 280 seconds of fluoroscopy time was used. COMPARISON: MRCP dated 09/12/2016. FINDINGS: Images demonstrate the endoscope in position. Contrast was injected into the common bile duct follo wing stone removal. Multiple filling defects are present in the common bile duct consistent with st ones or gas bubbles. Subsequent images demonstrate a balloon sweep. The intrahepatic bile ducts ar e partially opacified and appear grossly normal. IMPRESSION: 1. ERCP as described above. RPTAT: QQ .Eric Leone MD, MD Date Time Electronically viewed and signed by .Eric Leone MD, on 09/14/2016 08:20 .R/
[2016-09-14 08:23] LABS: ABNORMAL IP MESSAGE 1; BASOPHILS % 0.2 % (0.0-2.0); EOSINOPHILS # 0.1 10^3/ul (0.0-0.5); EOSINOPHILS % 1.9 % (0.0-7.0); HEMATOCRIT 23.9 % (37.0-47.0); HEMOGLOBIN 7.6 g/dl (12.0-16.0); LYMPHOCYTES # 0.7 10^3/ul (0.8-2.9); LYMPHOCYTES % 13.6 % (15.0-51.0); MEAN CORPUSCULAR HGB CONC 31.8 g/dl (32.0-37.0); MEAN CORPUSCULAR VOLUME 103.9 fl (82.0-101.0); MEAN PLATELET VOLUME 12.9 fl (7.4-10.4); MONOCYTE # 0.4 10^3/ul (0.3-0.9); MONOCYTES % 8.1 % (0.0-11.0); NEUTROPHILS % 75.8 % (39.0-77.0); PLATELET COUNT 57 10^3/UL (140-415); RED CELL DISTRIBUTION WIDTH 18.3 % (11.5-14.5); WHITE BLOOD COUNT 5.3 10^3/ul (4.8-10.8)
[2016-09-14 08:26] LABS: ALBUMIN 1.9 g/dl (3.3-4.9); POTASSIUM 3.7 mmol/L (3.5-5.1)
[2016-09-14 08:29] LABS: ALBUMIN/GLOBULIN RATIO 0.5; BILIRUBIN,DIRECT 5.8 mg/dl (0.00-0.20); BILIRUBIN,TOTAL 7.8 mg/dl (0.2-1.3); CALCIUM 7.2 mg/dl (8.4-10.2); CREATININE 0.86 mg/dl (0.44-1.00); TOTAL PROTEIN 5.7 g/dl (6.1-8.1)
[2016-09-14] MEDS: INSULIN ASPART [NOVOLOG] 3 ML PEN SC SCH ×5 (08:43→20:12)
[2016-09-14] MEDS: DOCUSATE SODIUM 100 MG CAP PO SCH ×2 (08:43→20:13)
[2016-09-14] MEDS: morphine 4 MG/ML VIAL IV PRN (10:12)
--- NOTE | 2016-09-14 11:13 | CONS ---
Date/Time of Note Date/Time of Note DATE: 09/14/16 TIME: 11:05 Assessment/Plan Assessment/Plan Additional Assessment/Plan Abdominal pain/nausea/vomiting * Likely secondary to pancreatitis * Elevated bilirubin * IVF Hydration * Nausea and pain control * Start soft diet * MRCP: 1. Multiple sub centimeter gallstones layering in the neck of the gallbladder. Mild diffuse wall thickening of the gallbladder which could be related to underlying cirrhosis. No distension of the gallbladder. 2. Mild diffuse intrahepatic biliary ductal dilatation. Limited visualization of the CBD related to existing CBD stent without significant extrahepatic biliary ductal dilatation. 3. Morphologic changes of cirrhosis. Stigmata of portal hypertension with evidence of moderate splenomegaly, large perisplenic varices and splenorenal shunt and trace ascites. * ERCP: 1. Occluded plastic biliary stent removed. 2. 10 x 80-mm covered Wallstent placed without problems. * Monitor LFTs, amylase, lipase History of HCC * Per biopsy reports from [facility] * Recommend heme/onc consult Liver Cirrhosis Paracentesis prn Fluid cytology with paracentesis Hepatitis panel, negative Diabetes Management per Primary GERD Continue PPI twice daily Further recommendations depend on clinical course Patient seen in collaboration with Dr. Singh Consultation Date/Type/Reason Admit Date/Time Sep 12, 2016 at 13:32 Type of Consultation: Gastroenterology 24 HR Interval Summary Free Text/Dictation Reports less pain Advised patient of ERCP results Advance diet to soft Exam/Review of Systems Vital Signs Vitals Vital Signs Date Time Temp Pulse Resp B/P Pulse Ox O2 Delivery O2 Flow Rate FiO2 09/14/16 07:20 97.8 65 16 102/49 98 09/13/16 19:54 Room Air 09/13/16 19:39 8.0 Intake and Output 09/13/16 09/13/16 09/14/16 15:00 23:00 07:00 Intake Total 900 ml 501 ml 700 ml Balance 900 ml 501 ml 700 ml Exam Constitutional: alert, oriented, well developed Psych: nl mood/affect Head: normocephalic Eyes: EOMI, nl conjunctiva, nl lids ENMT: nl external ears & nose, nl lips & teeth, nl nasal mucosa & septum Respiratory: clear to auscultation, normal air movement Cardiovascular: regular rate and rhythm Gastrointestinal: soft, slight epigastric tenderness Musculoskeletal: nl extremities to inspection Neurological: STACKER DRIVER II-XII intact Results Result Diagram: 09/14/16 0446 09/14/16 0446 Results 24 hrs Laboratory Tests Test 09/13/16 11:27 09/13/16 11:37 09/13/16 16:24 09/13/16 20:37 Lactic Acid Level 1.3 Bedside Glucose 101 91 83 Test 09/14/16 04:46 09/14/16 07:39 Alanine Aminotransferase (ALT/SGPT) 54 Albumin 1.9 L Albumin/Globulin Ratio 0.50 Alkaline Phosphatase 144 H Ammonia 53 #H Anion Gap 16 Aspartate Amino Transf (AST/SGOT) 103 H Basophils # 0.0 Basophils % 0.2 Blood Urea Nitrogen 22 H Calcium Level 7.2 L Carbon Dioxide Level 16 L Chloride Level 108 Creatinine 0.86 Direct Bilirubin 5.80 H Eosinophils # 0.1 Eosinophils % 1.9 Globulin 3.80 H Glucose Level 210 Hematocrit 23.9 L Hemoglobin 7.6 L Indirect Bilirubin 2.0 H Lymphocytes # 0.7 L Lymphocytes % 13.6 L Mean Corpuscular Hemoglobin 33.0 Mean Corpuscular Hemoglobin Concent 31.8 L Mean Corpuscular Volume 103.9 H Mean Platelet Volume 12.9 H Monocytes # 0.4 Monocytes % 8.1 Neutrophils # 4.0 Neutrophils % 75.8 Nucleated Red Blood Cells # 0.0 Nucleated Red Blood Cells % 0.0 Platelet Count 57 L Potassium Level 3.7 Red Blood Count 2.30 L Red Cell Distribution Width 18.3 H Sodium Level 136 Total Bilirubin 7.8 H Total Protein 5.7 L White Blood Count 5.3 # Bedside Glucose 171 Medications Medications Current Medications Ondansetron HCl (Zofran Inj) 4 mg Q6H PRN IV NAUSEA AND/OR VOMITING; Start 09/12 at 17:30 Docusate Sodium 100 mg 100 mg BID PO Last administered on 09/14/16 08:43; Admin Dose 100 MG; Start 09/12/16 at 21:00 Sodium Chloride (NS) 1,000 ml @ 80 mls/hr [id number] IV Last administered on 09/14 05:22; Admin Dose 80 MLS/HR; Start 09/12/16 at 17:30 Miscellaneous Information 1 ea NOTE XX ; Start 09/12/16 at 18:00 Glucose (Glutose) 15 gm Q15M PRN PO DECREASED GLUCOSE; Start 09/12/16 at 18:00 Glucose (Glutose) 22.5 gm Q15M PRN PO DECREASED GLUCOSE; Start 09/12/16 at 18:00 Dextrose (D50w Syringe) 25 ml Q15M PRN IV DECREASED GLUCOSE; Start 09/12/16 at 18:00 Dextrose (D50w Syringe) 50 ml Q15M PRN IV DECREASED GLUCOSE; Start 09/12/16 at 18:00 Glucagon (Glucagen) 1 mg Q15M PRN IM DECREASED GLUCOSE; Start 09/12/16 at 18:00 Glucose (Glutose) 15 gm Q15M PRN BUCCAL DECREASED GLUCOSE; Start 09/12/16 at 18: 00 Pantoprazole 40 mg 40 mg BID@06,18 IV Last administered on 09/14/16 05:22; Admin Dose 40 MG; Start 09/12/16 at 21:00 Piperacillin Sod/ Tazobactam Sod (Zosyn 3.375gm/ 100 ml (Pmx)) 100 ml @ 200 mls /hr Q8 IVPB Last administered on 09/14/16 05:22; Admin Dose 200 MLS/HR; Start 09/13/16 at 06:00 Morphine Sulfate 4 mg 4 mg Q4H PRN IV PAIN LEVEL 7-10 Last administered on 09/14 10:12; Admin Dose 4 MG; Start 09/13/16 at 06:00 Vancomycin HCl/ Sodium Chloride (Vancocin/NS) 250 ml @ 83.333 mls/ hr Q24H IVPB Last administered on 09/14/16 06:03; Admin Dose 83.333 MLS/HR; Start 05/23 at 06:00 JULITO STARKS Sep 14, 2016 11:13
[2016-09-14 17:07] VITALS: BP 118/57; PULSE 64; RESP 16
--- NOTE | 2016-09-14 17:34 | PN ---
Date/Time of Note Date/Time of Note DATE: 09/14/16 TIME: 17:24 Assessment/Plan VTE Prophylaxis VTE Prophylaxis Intervention: SCD's Lines/Catheters IV Catheter Type (from Nrsg): Peripheral IV Assessment/Plan Assessment/Plan 1. Sepsis 2/2 infected CBD stent + UTI s/p EGD 09/13/16 with 1. Occluded plastic biliary stent removed. 2. 10 x 80-mm covered Wallstent placed without problems. 2. Hyperammonemia without hepatic encephalopathy: improved 3. Chronic anemia : worsening 4. Chronic liver cirrhosis 2/2 HCC [facility] She was not a candidate for chemo d/t decompensated liver failure at the time Recommendation then was for hepatology review for probable IR refferal for ? embolization 5. Cholelithiasis, without imaging evidence of cholecystitis at this time: no surgery per anirudh 6. Diabetes mellitus type 2, with suboptimal control: PLAN: * continue broad spectrum abx and IV hydration * Oncology consult to see if recommendations might change * Patient is being worked up for eventual liver transplant per family * Will start Lantus and premeal novolog * Transfuse 1 unit * Monitor LFTs for improvement with replacement if stent. * Spoke in detail with dtr / nursing and GI PROPHYLAXIS: PPI / SCDs Subjective 24 Hr Interval Summary Free Text/Dictation Patient seen and examined. abd pain improved after procedure wants to go home Records from [facility] reviewed Exam/Review of Systems Vital Signs Vitals Vital Signs Date Time Temp Pulse Resp B/P Pulse Ox O2 Delivery O2 Flow Rate FiO2 09/14/16 17:07 64 16 118/57 09/14/16 07:20 97.8 98 09/13/16 19:54 Room Air 09/13/16 19:39 8.0 Intake and Output 09/13/16 09/13/16 09/14/16 15:00 23:00 07:00 Intake Total 900 ml 501 ml 700 ml Balance 900 ml 501 ml 700 ml Exam Constitutional: alert, oriented, No frail Psych: anxiety Head: normocephalic Eyes: PERRL, icteric ENMT: mucosa pink and moist Neck: supple Respiratory: diminished breath sounds Cardiovascular: regular rate and rhythm, No murmurs/extra sounds Gastrointestinal: bowel sounds, soft, tender Extremities: edema Neurological: nl mental status, nl speech Results Result Diagram: 09/14/16 0446 09/14/16 0446 Results 24 hrs Laboratory Tests Test 09/13/16 20:37 09/14/16 04:46 09/14/16 07:39 09/14/16 11:49 Bedside Glucose 83 171 194 Alanine Aminotransferase (ALT/SGPT) 54 Albumin 1.9 L Albumin/Globulin Ratio 0.50 Alkaline Phosphatase 144 H Ammonia 53 #H Anion Gap 16 Aspartate Amino Transf (AST/SGOT) 103 H Basophils # 0.0 Basophils % 0.2 Blood Urea Nitrogen 22 H Calcium Level 7.2 L Carbon Dioxide Level 16 L Chloride Level 108 Creatinine 0.86 Direct Bilirubin 5.80 H Eosinophils # 0.1 Eosinophils % 1.9 Globulin 3.80 H Glucose Level 210 Hematocrit 23.9 L Hemoglobin 7.6 L Indirect Bilirubin 2.0 H Lymphocytes # 0.7 L Lymphocytes % 13.6 L Mean Corpuscular Hemoglobin 33.0 Mean Corpuscular Hemoglobin Concent 31.8 L Mean Corpuscular Volume 103.9 H Mean Platelet Volume 12.9 H Monocytes # 0.4 Monocytes % 8.1 Neutrophils # 4.0 Neutrophils % 75.8 Nucleated Red Blood Cells # 0.0 Nucleated Red Blood Cells % 0.0 Platelet Count 57 L Potassium Level 3.7 Red Blood Count 2.30 L Red Cell Distribution Width 18.3 H Sodium Level 136 Total Bilirubin 7.8 H Total Protein 5.7 L White Blood Count 5.3 # Test 09/14/16 16:36 Bedside Glucose 218 Medications Medications Current Medications Ondansetron HCl (Zofran Inj) 4 mg Q6H PRN IV NAUSEA AND/OR VOMITING; Start 09/12 at 17:30 Docusate Sodium 100 mg 100 mg BID PO Last administered on 09/14/16 08:43; Admin Dose 100 MG; Start 09/12/16 at 21:00 Sodium Chloride (NS) 1,000 ml @ 80 mls/hr [id number] IV Last administered on 09/14 05:22; Admin Dose 80 MLS/HR; Start 09/12/16 at 17:30 Miscellaneous Information 1 ea NOTE XX ; Start 09/12/16 at 18:00 Glucose (Glutose) 15 gm Q15M PRN PO DECREASED GLUCOSE; Start 09/12/16 at 18:00 Glucose (Glutose) 22.5 gm Q15M PRN PO DECREASED GLUCOSE; Start 09/12/16 at 18:00 Dextrose (D50w Syringe) 25 ml Q15M PRN IV DECREASED GLUCOSE; Start 09/12/16 at 18:00 Dextrose (D50w Syringe) 50 ml Q15M PRN IV DECREASED GLUCOSE; Start 09/12/16 at 18:00 Glucagon (Glucagen) 1 mg Q15M PRN IM DECREASED GLUCOSE; Start 09/12/16 at 18:00 Glucose (Glutose) 15 gm Q15M PRN BUCCAL DECREASED GLUCOSE; Start 09/12/16 at 18: 00 Pantoprazole 40 mg 40 mg BID@06,18 IV Last administered on 09/14/16 17:02; Admin Dose 40 MG; Start 09/12/16 at 21:00 Piperacillin Sod/ Tazobactam Sod (Zosyn 3.375gm/ 100 ml (Pmx)) 100 ml @ 200 mls /hr Q8 IVPB Last administered on 09/14/16 12:35; Admin Dose 200 MLS/HR; Start 09/13/16 at 06:00 Morphine Sulfate (morphine) 4 mg Q4H PRN IV PAIN LEVEL 7-10 Last administered on 09/14/16 10:12; Admin Dose 4 MG; Start 09/13/16 at 06:00 Insulin Glargine (Lantus) 15 unit DAILY@20 SC ; Start 09/14/16 at 20:00 Procedures Procedures ERCP IMPRESSION: 1. Occluded plastic biliary stent removed. 2. 10 x 80-mm covered Wallstent placed without problems. PLAN: Observation. Monitor liver function tests. LOU BUSTOS Sep 14, 2016 17:34
--- NOTE | 2016-09-14 20:05 | CONS ---
Date/Time of Note Date/Time of Note DATE: 09/14/16 TIME: 19:59 Assessment/Plan Assessment/Plan Chief Complaint/Hosp Course History of HCC * Per biopsy reports from [facility] * WILL D/W PT AND FAMILY- DX,PROGNOSIS AND TREATMENT OPTIONS Chronic anemia. Abdominal pain/nausea/vomiting * Likely secondary to pancreatitis * Elevated bilirubin * IVF Hydration * Nausea and pain control * Start soft diet * MRCP: 1. Multiple sub centimeter gallstones layering in the neck of the gallbladder. Mild diffuse wall thickening of the gallbladder which could be related to underlying cirrhosis. No distension of the gallbladder. 2. Mild diffuse intrahepatic biliary ductal dilatation. Limited visualization of the CBD related to existing CBD stent without significant extrahepatic biliary ductal dilatation. 3. Morphologic changes of cirrhosis. Stigmata of portal hypertension with evidence of moderate splenomegaly, large perisplenic varices and splenorenal shunt and trace ascites. * ERCP: 1. Occluded plastic biliary stent removed. 2. 10 x 80-mm covered Wallstent placed without problems. * Monitor LFTs, amylase, lipase Sepsis. The source could be an infected CBD stent versus a urinary tract infection. Hyperammonemia without hepatic encephalopathy. Chronic liver cirrhosis, source unclear, with evidence of obstruction. Cholelithiasis, without imaging evidence of cholecystitis at this time. Diabetes mellitus type 2, with suboptimal control. Liver Cirrhosis Paracentesis prn Fluid cytology with paracentesis Hepatitis panel, negative GERD Continue PPI twice daily Further recommendations depend on clinical course Problems: Consultation Date/Type/Reason Admit Date/Time Sep 12, 2016 at 13:32 Date of Consultation: Sep 14, 2016 [facility] Reason for Consultation HCC Referring Provider: LOU BUSTOS Hx of Present Illness The patient with a history of hepatocellular carcinoma, recently proven with biopsy. The patient has had 2 ERCPs, with placement of biliary stents for an area of high-grade obstruction at the hilum of the liver over the bifurcation. The patient is hospitalized with a fever and jaundice, suggesting occlusion of stent. Ms. Leti Enriquez is a Greek-speaking only female, a 56-year-old, who presents to us, being referred because of fever, chills and severe jaundice. Of note is that this patient was recently managed at [facility] about a month ago for liver disease and at that time she ultimately had a liver biopsy and she had a common bile duct stent placed because of severe jaundice. Per the daughter, the liver biopsy was inconclusive and the patient was supposed to follow up for further care. from where she was referred to the emergency room here. She was found to be septic in our ER and is being admitted for further workup and management. The patient's complaint is nausea and severe abdominal pain in the epigastric and right upper quadrant regions, as well as severe jaundice and reduced urinary output. Other than that, she denies chest pain. She denies cough. She denies passing out episodes. They have not noticed any change in her mentation. PAST MEDICAL HISTORY: Positive for diabetes mellitus and now chronic liver cirrhosis, for which the cause is unclear. PAST SURGICAL HISTORY: x1 only, and CBD stent placement. ALLERGIES: NO KNOWN DRUG ALLERGIES. SOCIAL HISTORY: The patient has never smoked, never drank alcohol. Denies illicit drug use. FAMILY HISTORY: Negative. REVIEW OF SYSTEMS: Review of systems was done and pertinent findings are as in the HPI. Psychological: anxiety Social History Smoking Status: Never smoker Exam/Review of Systems Vital Signs Vitals Vital Signs Date Time Temp Pulse Resp B/P Pulse Ox O2 Delivery O2 Flow Rate FiO2 09/14/16 17:07 64 16 118/57 09/14/16 07:20 97.8 98 09/13/16 19:54 Room Air 09/13/16 19:39 8.0 Intake and Output 09/13/16 09/13/16 09/14/16 15:00 23:00 07:00 Intake Total 900 ml 501 ml 700 ml Balance 900 ml 501 ml 700 ml Exam PHYSICAL EXAMINATION: GENERAL EXAMINATION: She was visibly jaundiced in her skin and her sclerae. HEENT: Head normocephalic. No evidence of trauma. She was calm, cooperative with the exam. Mucus membranes were dry. Posterior pharynx was clear of exudate. NECK: Supple, nontender. The patient was warm to touch. CHEST: Clear to auscultation. Good air entry on both sides. CARDIOVASCULAR: S1 and S2. ABDOMEN: Tender in the epigastric and right upper quadrant areas, although soft. She did have normal active bowel sounds. EXTREMITIES: Lower extremities with mild edema bilaterally. NEUROLOGIC: No focal deficits noted. PSYCHIATRIC: She was cooperative with the exam. Results Result Diagram: 09/14/16 0446 09/14/16 0446 Results 24 hrs Laboratory Tests Test 09/13/16 20:37 09/14/16 04:46 09/14/16 07:39 09/14/16 11:49 Bedside Glucose 83 171 194 Alanine Aminotransferase (ALT/SGPT) 54 Albumin 1.9 L Albumin/Globulin Ratio 0.50 Alkaline Phosphatase 144 H Ammonia 53 #H Anion Gap 16 Aspartate Amino Transf (AST/SGOT) 103 H Basophils # 0.0 Basophils % 0.2 Blood Urea Nitrogen 22 H Calcium Level 7.2 L Carbon Dioxide Level 16 L Chloride Level 108 Creatinine 0.86 Direct Bilirubin 5.80 H Eosinophils # 0.1 Eosinophils % 1.9 Globulin 3.80 H Glucose Level 210 Hematocrit 23.9 L Hemoglobin 7.6 L Indirect Bilirubin 2.0 H Lymphocytes # 0.7 L Lymphocytes % 13.6 L Mean Corpuscular Hemoglobin 33.0 Mean Corpuscular Hemoglobin Concent 31.8 L Mean Corpuscular Volume 103.9 H Mean Platelet Volume 12.9 H Monocytes # 0.4 Monocytes % 8.1 Neutrophils # 4.0 Neutrophils % 75.8 Nucleated Red Blood Cells # 0.0 Nucleated Red Blood Cells % 0.0 Platelet Count 57 L Potassium Level 3.7 Red Blood Count 2.30 L Red Cell Distribution Width 18.3 H Sodium Level 136 Total Bilirubin 7.8 H Total Protein 5.7 L White Blood Count 5.3 # Test 09/14/16 16:36 09/14/16 19:46 Bedside Glucose 218 199 Medications Medications Current Medications Ondansetron HCl (Zofran Inj) 4 mg Q6H PRN IV NAUSEA AND/OR VOMITING; Start 09/12 at 17:30 Docusate Sodium 100 mg 100 mg BID PO Last administered on 09/14/16 08:43; Admin Dose 100 MG; Start 09/12/16 at 21:00 Sodium Chloride (NS) 1,000 ml @ 80 mls/hr [id number] IV Last administered on 09/14 05:22; Admin Dose 80 MLS/HR; Start 09/12/16 at 17:30 Miscellaneous Information 1 ea NOTE XX ; Start 09/12/16 at 18:00 Glucose (Glutose) 15 gm Q15M PRN PO DECREASED GLUCOSE; Start 09/12/16 at 18:00 Glucose (Glutose) 22.5 gm Q15M PRN PO DECREASED GLUCOSE; Start 09/12/16 at 18:00 Dextrose (D50w Syringe) 25 ml Q15M PRN IV DECREASED GLUCOSE; Start 09/12/16 at 18:00 Dextrose (D50w Syringe) 50 ml Q15M PRN IV DECREASED GLUCOSE; Start 09/12/16 at 18:00 Glucagon (Glucagen) 1 mg Q15M PRN IM DECREASED GLUCOSE; Start 09/12/16 at 18:00 Glucose (Glutose) 15 gm Q15M PRN BUCCAL DECREASED GLUCOSE; Start 09/12/16 at 18: 00 Pantoprazole 40 mg 40 mg BID@06,18 IV Last administered on 09/14/16 17:02; Admin Dose 40 MG; Start 09/12/16 at 21:00 Piperacillin Sod/ Tazobactam Sod (Zosyn 3.375gm/ 100 ml (Pmx)) 100 ml @ 200 mls /hr Q8 IVPB Last administered on 09/14/16 12:35; Admin Dose 200 MLS/HR; Start 09/13/16 at 06:00 Morphine Sulfate (morphine) 4 mg Q4H PRN IV PAIN LEVEL 7-10 Last administered on 09/14/16 10:12; Admin Dose 4 MG; Start 09/13/16 at 06:00 Insulin Glargine (Lantus) 15 unit DAILY@20 SC ; Start 09/14/16 at 20:00 ROBYN CANTU MD Sep 14, 2016 20:05
[2016-09-14] MEDS: INSULIN GLARGINE [LANtus] 3 ML PEN SC SCH (20:11)
[2016-09-14 20:28] VITALS: BP 148/63; RESP 18
[2016-09-15] MEDS: PIPER-TAZO 3.375 GM IV (PMX) 100 ML IVPB SCH ×3 (05:52→22:08)
[2016-09-15] MEDS: PANTOPRAZOLE 40 MG INJ IV SCH ×2 (05:52→17:40)
[2016-09-15 07:12] VITALS: BP 122/59; RESP 17
[2016-09-15 07:56] LABS: ADD SCAN DIFF NO
[2016-09-15] MEDS: INSULIN ASPART [NOVOLOG] 3 ML PEN SC SCH ×7 (08:00→21:00)
[2016-09-15 08:02] LABS: ABNORMAL IP MESSAGE 1; BASOPHILS % 0.3 % (0.0-2.0); EOSINOPHILS # 0.1 10^3/ul (0.0-0.5); EOSINOPHILS % 2.3 % (0.0-7.0); HEMATOCRIT 25.8 % (37.0-47.0); HEMOGLOBIN 8.5 g/dl (12.0-16.0); LYMPHOCYTES # 0.8 10^3/ul (0.8-2.9); MEAN CORPUSCULAR HEMOGLOBIN 31.8 pg (29.0-33.0); MEAN CORPUSCULAR HGB CONC 32.9 g/dl (32.0-37.0); MEAN CORPUSCULAR VOLUME 96.6 fl (82.0-101.0); MEAN PLATELET VOLUME 11.9 fl (7.4-10.4); MONOCYTE # 0.4 10^3/ul (0.3-0.9); NEUTROPHIL # 2.5 10^3/ul (1.6-7.5); NEUTROPHILS % 64.6 % (39.0-77.0); RED BLOOD COUNT 2.67 10^6/ul (4.20-5.40); RED CELL DISTRIBUTION WIDTH 21.2 % (11.5-14.5); WHITE BLOOD COUNT 3.9 10^3/ul (4.8-10.8)
[2016-09-15 08:12] LABS: PLATELET COUNT 54 10^3/UL (140-415)
[2016-09-15] MEDS: DOCUSATE SODIUM 100 MG CAP PO SCH ×2 (08:24→21:59)
[2016-09-15] MEDS: SOD CHLORIDE 0.9% 1,000 ML IV SCH ×3 (08:44→21:14)
--- NOTE | 2016-09-15 11:43 | CONS ---
Date/Time of Note Date/Time of Note DATE: 09/15/16 TIME: 11:40 Assessment/Plan Assessment/Plan Additional Assessment/Plan Abdominal pain/nausea/vomiting * Likely secondary to pancreatitis * Elevated bilirubin * IVF Hydration * Nausea and pain control * Start soft diet * MRCP: 1. Multiple sub centimeter gallstones layering in the neck of the gallbladder. Mild diffuse wall thickening of the gallbladder which could be related to underlying cirrhosis. No distension of the gallbladder. 2. Mild diffuse intrahepatic biliary ductal dilatation. Limited visualization of the CBD related to existing CBD stent without significant extrahepatic biliary ductal dilatation. 3. Morphologic changes of cirrhosis. Stigmata of portal hypertension with evidence of moderate splenomegaly, large perisplenic varices and splenorenal shunt and trace ascites. * ERCP: 1. Occluded plastic biliary stent removed. 2. 10 x 80-mm covered Wallstent placed without problems. * Monitor LFTs, amylase, lipase History of HCC * Per biopsy reports from [facility] * Heme/onc following Liver Cirrhosis Paracentesis prn Fluid cytology with paracentesis Hepatitis panel, negative Diabetes Management per Primary GERD Continue PPI twice daily Further recommendations depend on clinical course Patient seen in collaboration with Dr. Singh Consultation Date/Type/Reason Admit Date/Time Sep 12, 2016 at 13:32 Type of Consultation: GI Referring Provider: LOU BUSTOS 24 HR Interval Summary Free Text/Dictation Tolerating diet Denies abdominal pain, nausea, vomiting LFTs trending downward Exam/Review of Systems Vital Signs Vitals Vital Signs Date Time Temp Pulse Resp B/P Pulse Ox O2 Delivery O2 Flow Rate FiO2 09/15/16 07:12 98.3 72 17 122/59 94 09/13/16 19:54 Room Air 09/13/16 19:39 8.0 Intake and Output 09/14/16 09/14/16 09/15/16 15:00 23:00 07:00 Intake Total 350 ml 1710 ml 1150 ml Balance 350 ml 1710 ml 1150 ml Exam Constitutional: alert, oriented, well developed Psych: nl mood/affect Head: normocephalic Eyes: EOMI, nl conjunctiva, nl lids ENMT: nl external ears & nose, nl lips & teeth, nl nasal mucosa & septum Respiratory: clear to auscultation, normal air movement Cardiovascular: regular rate and rhythm Gastrointestinal: soft, slight epigastric tenderness Musculoskeletal: nl extremities to inspection Neurological: FILLER SHAKER II-XII intact Results Result Diagram: 09/15/16 0745 09/14/16 0446 Results 24 hrs Laboratory Tests Test 09/14/16 11:49 09/14/16 16:36 09/14/16 19:46 09/14/16 23:02 Bedside Glucose 194 218 199 148 Test 09/15/16 01:22 09/15/16 07:45 Bedside Glucose 139 120 Basophils # 0.0 Basophils % 0.3 Eosinophils # 0.1 Eosinophils % 2.3 Hematocrit 25.8 L Hemoglobin 8.5 L Lymphocytes # 0.8 Lymphocytes % 21.0 Mean Corpuscular Hemoglobin 31.8 Mean Corpuscular Hemoglobin Concent 32.9 Mean Corpuscular Volume 96.6 Mean Platelet Volume 11.9 H Monocytes # 0.4 Monocytes % 11.0 Neutrophils # 2.5 Neutrophils % 64.6 Nucleated Red Blood Cells # 0.0 Nucleated Red Blood Cells % 0.0 Platelet Count 54 L Red Blood Count 2.67 L Red Cell Distribution Width 21.2 H White Blood Count 3.9 #L Medications Medications Current Medications Ondansetron HCl (Zofran Inj) 4 mg Q6H PRN IV NAUSEA AND/OR VOMITING; Start 09/12 at 17:30 Docusate Sodium 100 mg 100 mg BID PO Last administered on 09/15/16 08:24; Admin Dose 100 MG; Start 09/12/16 at 21:00 Sodium Chloride (NS) 1,000 ml @ 80 mls/hr [id number] IV Last administered on 09/14 20:12; Admin Dose 80 MLS/HR; Start 09/12/16 at 17:30 Miscellaneous Information 1 ea NOTE XX ; Start 09/12/16 at 18:00 Glucose (Glutose) 15 gm Q15M PRN PO DECREASED GLUCOSE; Start 09/12/16 at 18:00 Glucose (Glutose) 22.5 gm Q15M PRN PO DECREASED GLUCOSE; Start 09/12/16 at 18:00 Dextrose (D50w Syringe) 25 ml Q15M PRN IV DECREASED GLUCOSE; Start 09/12/16 at 18:00 Dextrose (D50w Syringe) 50 ml Q15M PRN IV DECREASED GLUCOSE; Start 09/12/16 at 18:00 Glucagon (Glucagen) 1 mg Q15M PRN IM DECREASED GLUCOSE; Start 09/12/16 at 18:00 Glucose (Glutose) 15 gm Q15M PRN BUCCAL DECREASED GLUCOSE; Start 09/12/16 at 18: 00 Pantoprazole 40 mg 40 mg BID@06,18 IV Last administered on 09/15/16 05:52; Admin Dose 40 MG; Start 09/12/16 at 21:00 Piperacillin Sod/ Tazobactam Sod (Zosyn 3.375gm/ 100 ml (Pmx)) 100 ml @ 200 mls /hr Q8 IVPB Last administered on 09/15/16 05:52; Admin Dose 200 MLS/HR; Start 09/13/16 at 06:00 Morphine Sulfate (morphine) 4 mg Q4H PRN IV PAIN LEVEL 7-10 Last administered on 09/14/16 10:12; Admin Dose 4 MG; Start 09/13/16 at 06:00 Insulin Glargine (Lantus) 15 unit DAILY@20 SC Last administered on 09/14/16 20 :11; Admin Dose 15 UNIT; Start 09/14/16 at 20:00 JULITO STARKS Sep 15, 2016 11:42
[2016-09-15] MEDS: morphine 4 MG/ML VIAL IV PRN ×3 (12:28→22:00)
[2016-09-15 12:34] LABS: ALBUMIN 1.8 g/dl (3.3-4.9)
[2016-09-15 12:37] LABS: BILIRUBIN,DIRECT 6.1 mg/dl (0.00-0.20); BILIRUBIN,INDIRECT 2.5 mg/dl (0-1.1); BILIRUBIN,TOTAL 8.6 mg/dl (0.2-1.3); TOTAL PROTEIN 5.4 g/dl (6.1-8.1)
--- NOTE | 2016-09-15 16:57 | PN ---
Date/Time of Note Date/Time of Note DATE: 09/15/16 TIME: 16:44 Assessment/Plan VTE Prophylaxis VTE Prophylaxis Intervention: SCD's VTE Contraindication Reason: blood coagulation disorder Lines/Catheters IV Catheter Type (from Nrsg): Peripheral IV Assessment/Plan Assessment/Plan 1. Sepsis 2/2 infected CBD stent + UTI: improved on abx 2. Infected / Occluded CBD stent s/p ERCP 09/13/16 with 1. Occluded plastic biliary stent removed. 2. 10 x 80-mm covered Wallstent placed without problems. 3. Enterococcus UTI 4. Hyperammonemia without hepatic encephalopathy: improved 5. Chronic anemia : transfused 1 unit PRBC so far / improved 6. Chronic liver cirrhosis 2/2 HCC Patient was seen by [facility]. She was not a candidate for chemo d/t decompensated liver failure at the time Recommendation then was for hepatology review for probable IR refferal for ? embolization 7. Coagulopathy 2/2 liver cirrhosis : s/p FFP and Vit K x 1 / no active visible bleed 8. Cholelithiasis, without imaging evidence of cholecystitis at this time: No surgery per anirudh 9. Diabetes mellitus type 2, with suboptimal control: A1C 5.3 (likely falsely low from chronic anemia) PLAN: * continue broad spectrum abx * f/u Oncology consult to see if recommendations might change * Patient is being worked up for eventual liver transplant per family * Continue Lantus and premeal novolog * LFTs worsened mildly today even after stent was changed / f/u values tomorrow and GI recs * Spoke in detail with dtr / nursing PROPHYLAXIS: PPI / SCDs Subjective 24 Hr Interval Summary Free Text/Dictation feels better still having some back pain and epigastric pain Still wants to go home Exam/Review of Systems Vital Signs Vitals Vital Signs Date Time Temp Pulse Resp B/P Pulse Ox O2 Delivery O2 Flow Rate FiO2 09/15/16 07:12 98.3 72 17 122/59 94 09/13/16 19:54 Room Air 09/13/16 19:39 8.0 Intake and Output 09/14/16 09/14/16 09/15/16 15:00 23:00 07:00 Intake Total 350 ml 1710 ml 1150 ml Balance 350 ml 1710 ml 1150 ml Exam Constitutional: alert, oriented, obese Psych: calm Head: normocephalic Eyes: PERRL, icteric ENMT: mucosa pink and moist Neck: supple Respiratory: diminished breath sounds Cardiovascular: regular rate and rhythm, No murmurs/extra sounds Gastrointestinal: bowel sounds, soft, non tender Extremities: edema Neurological: nl mental status, nl speech Results Result Diagram: 09/15/16 0745 09/14/16 0446 Results 24 hrs Laboratory Tests Test 09/14/16 19:46 09/14/16 23:02 09/15/16 01:22 09/15/16 07:45 Bedside Glucose 199 148 139 120 Alanine Aminotransferase (ALT/SGPT) 49 Albumin 1.8 L Alkaline Phosphatase 152 H Alpha Fetoprotein 4690.00 H Aspartate Amino Transf (AST/SGOT) 89 H Basophils # 0.0 Basophils % 0.3 Direct Bilirubin 6.10 H Eosinophils # 0.1 Eosinophils % 2.3 Hematocrit 25.8 L Hemoglobin 8.5 L Indirect Bilirubin 2.5 H Lymphocytes # 0.8 Lymphocytes % 21.0 Mean Corpuscular Hemoglobin 31.8 Mean Corpuscular Hemoglobin Concent 32.9 Mean Corpuscular Volume 96.6 Mean Platelet Volume 11.9 H Monocytes # 0.4 Monocytes % 11.0 Neutrophils # 2.5 Neutrophils % 64.6 Nucleated Red Blood Cells # 0.0 Nucleated Red Blood Cells % 0.0 Platelet Count 54 L Red Blood Count 2.67 L Red Cell Distribution Width 21.2 H Total Bilirubin 8.6 H Total Protein 5.4 L White Blood Count 3.9 #L Test 09/15/16 11:55 Bedside Glucose 199 Medications Medications Current Medications Ondansetron HCl (Zofran Inj) 4 mg Q6H PRN IV NAUSEA AND/OR VOMITING; Start 09/12 at 17:30 Docusate Sodium 100 mg 100 mg BID PO Last administered on 09/15/16 08:24; Admin Dose 100 MG; Start 09/12/16 at 21:00 Sodium Chloride (NS) 1,000 ml @ 80 mls/hr [id number] IV Last administered on 09/15 14:54; Admin Dose 80 MLS/HR; Start 09/12/16 at 17:30 Miscellaneous Information 1 ea NOTE XX ; Start 09/12/16 at 18:00 Glucose (Glutose) 15 gm Q15M PRN PO DECREASED GLUCOSE; Start 09/12/16 at 18:00 Glucose (Glutose) 22.5 gm Q15M PRN PO DECREASED GLUCOSE; Start 09/12/16 at 18:00 Dextrose (D50w Syringe) 25 ml Q15M PRN IV DECREASED GLUCOSE; Start 09/12/16 at 18:00 Dextrose (D50w Syringe) 50 ml Q15M PRN IV DECREASED GLUCOSE; Start 09/12/16 at 18:00 Glucagon (Glucagen) 1 mg Q15M PRN IM DECREASED GLUCOSE; Start 09/12/16 at 18:00 Glucose (Glutose) 15 gm Q15M PRN BUCCAL DECREASED GLUCOSE; Start 09/12/16 at 18: 00 Pantoprazole 40 mg 40 mg BID@06,18 IV Last administered on 09/15/16 05:52; Admin Dose 40 MG; Start 09/12/16 at 21:00 Piperacillin Sod/ Tazobactam Sod (Zosyn 3.375gm/ 100 ml (Pmx)) 100 ml @ 200 mls /hr Q8 IVPB Last administered on 09/15/16 14:54; Admin Dose 200 MLS/HR; Start 09/13/16 at 06:00 Morphine Sulfate (morphine) 4 mg Q4H PRN IV PAIN LEVEL 7-10 Last administered on 09/15/16 16:34; Admin Dose 4 MG; Start 09/13/16 at 06:00 Insulin Glargine (Lantus) 15 unit DAILY@20 SC Last administered on 09/14/16 20 :11; Admin Dose 15 UNIT; Start 09/14/16 at 20:00 LOU BUSTOS Sep 15, 2016 16:55
--- NOTE | 2016-09-15 20:01 | CONS ---
Date/Time of Note Date/Time of Note DATE: 09/15/16 TIME: 19:58 Assessment/Plan Assessment/Plan Chief Complaint/Hosp Course History of HCC * Per biopsy reports from [facility] * D/W PT AND FAMILY- DX,PROGNOSIS AND TREATMENT OPTIONS * await AFP Chronic anemia. monitor closely Abdominal pain/nausea/vomiting- 2 to Occluded plastic biliary stent * Likely secondary to pancreatitis * Elevated bilirubin * IVF Hydration * Nausea and pain control * Start soft diet * MRCP: 1. Multiple sub centimeter gallstones layering in the neck of the gallbladder. Mild diffuse wall thickening of the gallbladder which could be related to underlying cirrhosis. No distension of the gallbladder. 2. Mild diffuse intrahepatic biliary ductal dilatation. Limited visualization of the CBD related to existing CBD stent without significant extrahepatic biliary ductal dilatation. 3. Morphologic changes of cirrhosis. Stigmata of portal hypertension with evidence of moderate splenomegaly, large perisplenic varices and splenorenal shunt and trace ascites. * ERCP: 1. Occluded plastic biliary stent removed. 2. 10 x 80-mm covered Wallstent placed without problems. * Monitor LFTs, amylase, lipase Sepsis. The source could be an infected CBD stent versus a urinary tract infection. Hyperammonemia without hepatic encephalopathy. Chronic liver cirrhosis, source unclear, with evidence of obstruction. Cholelithiasis, without imaging evidence of cholecystitis at this time. Diabetes mellitus type 2, with suboptimal control. Liver Cirrhosis Paracentesis prn Fluid cytology with paracentesis Hepatitis panel, negative GERD Continue PPI twice daily Further recommendations depend on clinical course Problems: Consultation Date/Type/Reason Admit Date/Time Sep 12, 2016 at 13:32 Initial Consult Date 09/14/16 Type of Consultation: [facility] Referring Provider: LOU BUSTOS 24 HR Interval Summary Free Text/Dictation all noted d/w daughter felling better Tolerating diet Denies abdominal pain, nausea, vomiting LFTs trending downward Exam/Review of Systems Vital Signs Vitals Vital Signs Date Time Temp Pulse Resp B/P Pulse Ox O2 Delivery O2 Flow Rate FiO2 09/15/16 07:12 98.3 72 17 122/59 94 09/13/16 19:54 Room Air 09/13/16 19:39 8.0 Intake and Output 09/14/16 09/14/16 09/15/16 15:00 23:00 07:00 Intake Total 350 ml 1710 ml 1150 ml Balance 350 ml 1710 ml 1150 ml Exam Constitutional: alert, oriented, well developed Psych: nl mood/affect Head: normocephalic Eyes: EOMI, nl conjunctiva, nl lids ENMT: nl external ears & nose, nl lips & teeth, nl nasal mucosa & septum Respiratory: clear to auscultation, normal air movement Cardiovascular: regular rate and rhythm Gastrointestinal: soft, slight epigastric tenderness Musculoskeletal: nl extremities to inspection 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 Results Result Diagram: 09/15/16 0745 09/14/16 0446 Results 24 hrs Laboratory Tests Test 09/14/16 23:02 09/15/16 01:22 09/15/16 07:45 09/15/16 11:55 Bedside Glucose 148 139 120 199 Alanine Aminotransferase (ALT/SGPT) 49 Albumin 1.8 L Alkaline Phosphatase 152 H Alpha Fetoprotein 4690.00 H Aspartate Amino Transf (AST/SGOT) 89 H Basophils # 0.0 Basophils % 0.3 Direct Bilirubin 6.10 H Eosinophils # 0.1 Eosinophils % 2.3 Hematocrit 25.8 L Hemoglobin 8.5 L Indirect Bilirubin 2.5 H Lymphocytes # 0.8 Lymphocytes % 21.0 Mean Corpuscular Hemoglobin 31.8 Mean Corpuscular Hemoglobin Concent 32.9 Mean Corpuscular Volume 96.6 Mean Platelet Volume 11.9 H Monocytes # 0.4 Monocytes % 11.0 Neutrophils # 2.5 Neutrophils % 64.6 Nucleated Red Blood Cells # 0.0 Nucleated Red Blood Cells % 0.0 Platelet Count 54 L Red Blood Count 2.67 L Red Cell Distribution Width 21.2 H Total Bilirubin 8.6 H Total Protein 5.4 L White Blood Count 3.9 #L Test 09/15/16 16:38 Bedside Glucose 175 Medications Medications Current Medications Ondansetron HCl (Zofran Inj) 4 mg Q6H PRN IV NAUSEA AND/OR VOMITING; Start 09/12 at 17:30 Docusate Sodium 100 mg 100 mg BID PO Last administered on 09/15/16 08:24; Admin Dose 100 MG; Start 09/12/16 at 21:00 Sodium Chloride (NS) 1,000 ml @ 80 mls/hr [id number] IV Last administered on 09/15 14:54; Admin Dose 80 MLS/HR; Start 09/12/16 at 17:30 Miscellaneous Information 1 ea NOTE XX ; Start 09/12/16 at 18:00 Glucose (Glutose) 15 gm Q15M PRN PO DECREASED GLUCOSE; Start 09/12/16 at 18:00 Glucose (Glutose) 22.5 gm Q15M PRN PO DECREASED GLUCOSE; Start 09/12/16 at 18:00 Dextrose (D50w Syringe) 25 ml Q15M PRN IV DECREASED GLUCOSE; Start 09/12/16 at 18:00 Dextrose (D50w Syringe) 50 ml Q15M PRN IV DECREASED GLUCOSE; Start 09/12/16 at 18:00 Glucagon (Glucagen) 1 mg Q15M PRN IM DECREASED GLUCOSE; Start 09/12/16 at 18:00 Glucose (Glutose) 15 gm Q15M PRN BUCCAL DECREASED GLUCOSE; Start 09/12/16 at 18: 00 Pantoprazole 40 mg 40 mg BID@06,18 IV Last administered on 09/15/16 17:40; Admin Dose 40 MG; Start 09/12/16 at 21:00 Piperacillin Sod/ Tazobactam Sod (Zosyn 3.375gm/ 100 ml (Pmx)) 100 ml @ 200 mls /hr Q8 IVPB Last administered on 09/15/16 14:54; Admin Dose 200 MLS/HR; Start 09/13/16 at 06:00 Morphine Sulfate (morphine) 4 mg Q4H PRN IV PAIN LEVEL 7-10 Last administered on 09/15/16 16:34; Admin Dose 4 MG; Start 09/13/16 at 06:00 Insulin Glargine (Lantus) 15 unit DAILY@20 SC Last administered on 09/14/16 20 :11; Admin Dose 15 UNIT; Start 09/14/16 at 20:00 ROBYN CANTU MD Sep 15, 2016 20:01
[2016-09-15] MEDS: INSULIN GLARGINE [LANtus] 3 ML PEN SC SCH (22:03)
[2016-09-15 23:26] VITALS: BP 138/69; RESP 18
[2016-09-16] MEDS: SOD CHLORIDE 0.9% 1,000 ML IV SCH ×2 (05:37→22:14)
[2016-09-16] MEDS: PANTOPRAZOLE 40 MG INJ IV SCH ×2 (05:43→17:28)
[2016-09-16] MEDS: PIPER-TAZO 3.375 GM IV (PMX) 100 ML IVPB SCH ×3 (05:43→22:10)
[2016-09-16] MEDS: morphine 4 MG/ML VIAL IV PRN ×3 (06:13→22:18)
[2016-09-16 06:50] LABS: ADD SCAN DIFF NO
[2016-09-16 06:52] LABS: ABNORMAL IP MESSAGE 1; BASOPHILS % 0.5 % (0.0-2.0); HEMATOCRIT 25.4 % (37.0-47.0); HEMOGLOBIN 8.3 g/dl (12.0-16.0); LYMPHOCYTES # 0.7 10^3/ul (0.8-2.9); LYMPHOCYTES % 18.8 % (15.0-51.0); MEAN CORPUSCULAR HEMOGLOBIN 32.3 pg (29.0-33.0); MEAN CORPUSCULAR HGB CONC 32.7 g/dl (32.0-37.0); MEAN CORPUSCULAR VOLUME 98.8 fl (82.0-101.0); MEAN PLATELET VOLUME 12.8 fl (7.4-10.4); MONOCYTE # 0.4 10^3/ul (0.3-0.9); MONOCYTES % 10.9 % (0.0-11.0); NEUTROPHIL # 2.7 10^3/ul (1.6-7.5); NEUTROPHILS % 68.3 % (39.0-77.0); PLATELET COUNT 57 10^3/UL (140-415); RED BLOOD COUNT 2.57 10^6/ul (4.20-5.40); RED CELL DISTRIBUTION WIDTH 21.1 % (11.5-14.5); WHITE BLOOD COUNT 3.9 10^3/ul (4.8-10.8)
[2016-09-16] MEDS: INSULIN ASPART [NOVOLOG] 3 ML PEN SC SCH ×7 (07:46→20:22)
[2016-09-16 07:49] VITALS: BP 113/55; RESP 18
[2016-09-16] MEDS: DOCUSATE SODIUM 100 MG CAP PO SCH ×2 (08:21→20:17)
--- NOTE | 2016-09-16 11:39 | CONS ---
Date/Time of Note Date/Time of Note DATE: 09/16/16 TIME: 11:38 Assessment/Plan Assessment/Plan Chief Complaint/Hosp Course History of HCC * Per biopsy reports from [facility] * D/W PT AND FAMILY- DX,PROGNOSIS AND TREATMENT OPTIONS * await AFP Chronic anemia. monitor closely Abdominal pain/nausea/vomiting- 2 to Occluded plastic biliary stent * Likely secondary to pancreatitis * Elevated bilirubin * IVF Hydration * Nausea and pain control * Start soft diet * MRCP: 1. Multiple sub centimeter gallstones layering in the neck of the gallbladder. Mild diffuse wall thickening of the gallbladder which could be related to underlying cirrhosis. No distension of the gallbladder. 2. Mild diffuse intrahepatic biliary ductal dilatation. Limited visualization of the CBD related to existing CBD stent without significant extrahepatic biliary ductal dilatation. 3. Morphologic changes of cirrhosis. Stigmata of portal hypertension with evidence of moderate splenomegaly, large perisplenic varices and splenorenal shunt and trace ascites. * ERCP: 1. Occluded plastic biliary stent removed. 2. 10 x 80-mm covered Wallstent placed without problems. * Monitor LFTs, amylase, lipase Sepsis. The source could be an infected CBD stent versus a urinary tract infection. Hyperammonemia without hepatic encephalopathy. Chronic liver cirrhosis, source unclear, with evidence of obstruction. Cholelithiasis, without imaging evidence of cholecystitis at this time. Diabetes mellitus type 2, with suboptimal control. Liver Cirrhosis Paracentesis prn Fluid cytology with paracentesis Hepatitis panel, negative GERD Continue PPI twice daily Further recommendations depend on clinical course Problems: Consultation Date/Type/Reason Admit Date/Time Sep 12, 2016 at 13:32 Initial Consult Date 09/14/16 Type of Consultation: [facility] Referring Provider: LOU BUSTOS Exam/Review of Systems Vital Signs Vitals Vital Signs Date Time Temp Pulse Resp B/P Pulse Ox O2 Delivery O2 Flow Rate FiO2 09/16/16 07:49 97.6 68 18 113/55 97 09/13/16 19:54 Room Air 09/13/16 19:39 8.0 Intake and Output 09/15/16 09/15/16 09/16/16 15:00 23:00 07:00 Intake Total 550 ml 1120 ml 740 ml Balance 550 ml 1120 ml 740 ml Results Result Diagram: 09/16/16 0542 09/14/16 0446 Results 24 hrs Laboratory Tests Test 09/15/16 11:55 09/15/16 16:38 09/15/16 21:58 09/16/16 05:42 Bedside Glucose 199 175 161 Alpha Fetoprotein 4710.00 H Basophils # 0.0 Basophils % 0.5 Eosinophils # 0.0 Eosinophils % 1.0 Hematocrit 25.4 L Hemoglobin 8.3 L Lymphocytes # 0.7 L Lymphocytes % 18.8 Mean Corpuscular Hemoglobin 32.3 Mean Corpuscular Hemoglobin Concent 32.7 Mean Corpuscular Volume 98.8 Mean Platelet Volume 12.8 H Monocytes # 0.4 Monocytes % 10.9 Neutrophils # 2.7 Neutrophils % 68.3 Nucleated Red Blood Cells # 0.0 Nucleated Red Blood Cells % 0.0 Platelet Count 57 L Red Blood Count 2.57 L Red Cell Distribution Width 21.1 H White Blood Count 3.9 L Test 09/16/16 07:44 09/16/16 11:20 Bedside Glucose 129 210 Medications Medications Current Medications Ondansetron HCl (Zofran Inj) 4 mg Q6H PRN IV NAUSEA AND/OR VOMITING; Start 09/12 at 17:30 Docusate Sodium 100 mg 100 mg BID PO Last administered on 09/16/16 08:21; Admin Dose 100 MG; Start 09/12/16 at 21:00 Sodium Chloride (NS) 1,000 ml @ 80 mls/hr [id number] IV Last administered on 09/16 05:37; Admin Dose 80 MLS/HR; Start 09/12/16 at 17:30 Miscellaneous Information 1 ea NOTE XX ; Start 09/12/16 at 18:00 Glucose (Glutose) 15 gm Q15M PRN PO DECREASED GLUCOSE; Start 09/12/16 at 18:00 Glucose (Glutose) 22.5 gm Q15M PRN PO DECREASED GLUCOSE; Start 09/12/16 at 18:00 Dextrose (D50w Syringe) 25 ml Q15M PRN IV DECREASED GLUCOSE; Start 09/12/16 at 18:00 Dextrose (D50w Syringe) 50 ml Q15M PRN IV DECREASED GLUCOSE; Start 09/12/16 at 18:00 Glucagon (Glucagen) 1 mg Q15M PRN IM DECREASED GLUCOSE; Start 09/12/16 at 18:00 Glucose (Glutose) 15 gm Q15M PRN BUCCAL DECREASED GLUCOSE; Start 09/12/16 at 18: 00 Pantoprazole 40 mg 40 mg BID@06,18 IV Last administered on 09/16/16 05:43; Admin Dose 40 MG; Start 09/12/16 at 21:00 Piperacillin Sod/ Tazobactam Sod (Zosyn 3.375gm/ 100 ml (Pmx)) 100 ml @ 200 mls /hr Q8 IVPB Last administered on 09/16/16 05:43; Admin Dose 200 MLS/HR; Start 09/13/16 at 06:00 Morphine Sulfate (morphine) 4 mg Q4H PRN IV PAIN LEVEL 7-10 Last administered on 09/16/16 11:14; Admin Dose 4 MG; Start 09/13/16 at 06:00 Insulin Glargine (Lantus) 15 unit DAILY@20 SC Last administered on 09/15/16 22 :03; Admin Dose 15 UNIT; Start 09/14/16 at 20:00 ROBYN CANTU MD Sep 16, 2016 11:38
--- NOTE | 2016-09-16 14:49 | PN ---
Date/Time of Note Date/Time of Note DATE: 09/16/16 TIME: 14:38 Assessment/Plan VTE Prophylaxis VTE Prophylaxis Intervention: SCD's Lines/Catheters IV Catheter Type (from Nrsg): Peripheral IV Assessment/Plan Assessment/Plan 1. Sepsis 2/2 infected CBD stent + UTI: improved on zosyn 2. Infected / Occluded CBD stent s/p ERCP 09/13/16 with 1. Occluded plastic biliary stent removed. 2. 10 x 80-mm covered Wallstent placed without problems. 3. Enterococcus UTI, on zosyn 4. Hyperammonemia without hepatic encephalopathy: improved 5. Chronic anemia : transfused 1 unit PRBC so far / improved 6. Chronic liver cirrhosis 2/2 HCC Patient was seen by [facility]. She was not a candidate for chemo d/t decompensated liver failure at the time Recommendation then was for hepatology review for probable IR refferal for ? embolization 7. Coagulopathy 2/2 liver cirrhosis : s/p FFP and Vit K x 1 / no active visible bleed 8. Cholelithiasis, without imaging evidence of cholecystitis at this time: No surgery per anirudh 9. Diabetes mellitus type 2, with suboptimal control: A1C 5.3 (likely falsely low from chronic anemia) Subjective 24 Hr Interval Summary Free Text/Dictation no fever. some right flank pain Exam/Review of Systems Vital Signs Vitals Vital Signs Date Time Temp Pulse Resp B/P Pulse Ox O2 Delivery O2 Flow Rate FiO2 09/16/16 07:49 97.6 68 18 113/55 97 09/13/16 19:54 Room Air 09/13/16 19:39 8.0 Intake and Output 09/15/16 09/15/16 09/16/16 15:00 23:00 07:00 Intake Total 550 ml 1120 ml 740 ml Balance 550 ml 1120 ml 740 ml Exam Constitutional: alert, oriented, well developed Psych: nl mood/affect, no complaints Head: atraumatic, normocephalic Eyes: EOMI, PERRL, nl conjunctiva, nl lids ENMT: nl external ears & nose, nl lips & teeth, nl nasal mucosa & septum Neck: non-tender, supple Respiratory: clear to auscultation, normal air movement, No congested cough, No crackles/rales, No diminished breath sounds, No intercostal retraction, No labored breathing, No other, No respirations, No tactile fremitus, No wheezing Cardiovascular: nl pulses, regular rate and rhythm, No S3, No S4, No bruits, No diastolic murmur, No edema, No gallop, No irregular rhythm, No jugular venous distention (JVD), No murmurs/extra sounds, No other, No rub, No systolic murmur Gastrointestinal: ascites, distended, hepatomegaly Musculoskeletal: nl extremities to inspection Extremities: normal pulses, No calf tenderness, No clubbing, No cyanosis, No edema, No other, No palpable cord, No pitting pedal edema, No tenderness 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, nl mental status, nl speech, nl strength Skin: nl turgor Lymph: nl lymph nodes Results Result Diagram: 09/16/16 0542 09/14/16 0446 Results 24 hrs Laboratory Tests Test 09/15/16 16:38 09/15/16 21:58 09/16/16 05:42 09/16/16 07:44 Bedside Glucose 175 161 129 Alpha Fetoprotein 4710.00 H Basophils # 0.0 Basophils % 0.5 Eosinophils # 0.0 Eosinophils % 1.0 Hematocrit 25.4 L Hemoglobin 8.3 L Lymphocytes # 0.7 L Lymphocytes % 18.8 Mean Corpuscular Hemoglobin 32.3 Mean Corpuscular Hemoglobin Concent 32.7 Mean Corpuscular Volume 98.8 Mean Platelet Volume 12.8 H Monocytes # 0.4 Monocytes % 10.9 Neutrophils # 2.7 Neutrophils % 68.3 Nucleated Red Blood Cells # 0.0 Nucleated Red Blood Cells % 0.0 Platelet Count 57 L Red Blood Count 2.57 L Red Cell Distribution Width 21.1 H White Blood Count 3.9 L Test 09/16/16 11:20 Bedside Glucose 210 Medications Medications Current Medications Ondansetron HCl (Zofran Inj) 4 mg Q6H PRN IV NAUSEA AND/OR VOMITING; Start 09/12 at 17:30 Docusate Sodium 100 mg 100 mg BID PO Last administered on 09/16/16 08:21; Admin Dose 100 MG; Start 09/12/16 at 21:00 Sodium Chloride (NS) 1,000 ml @ 80 mls/hr [id number] IV Last administered on 09/16 05:37; Admin Dose 80 MLS/HR; Start 09/12/16 at 17:30 Miscellaneous Information 1 ea NOTE XX ; Start 09/12/16 at 18:00 Glucose (Glutose) 15 gm Q15M PRN PO DECREASED GLUCOSE; Start 09/12/16 at 18:00 Glucose (Glutose) 22.5 gm Q15M PRN PO DECREASED GLUCOSE; Start 09/12/16 at 18:00 Dextrose (D50w Syringe) 25 ml Q15M PRN IV DECREASED GLUCOSE; Start 09/12/16 at 18:00 Dextrose (D50w Syringe) 50 ml Q15M PRN IV DECREASED GLUCOSE; Start 09/12/16 at 18:00 Glucagon (Glucagen) 1 mg Q15M PRN IM DECREASED GLUCOSE; Start 09/12/16 at 18:00 Glucose (Glutose) 15 gm Q15M PRN BUCCAL DECREASED GLUCOSE; Start 09/12/16 at 18: 00 Pantoprazole 40 mg 40 mg BID@06,18 IV Last administered on 09/16/16 05:43; Admin Dose 40 MG; Start 09/12/16 at 21:00 Piperacillin Sod/ Tazobactam Sod (Zosyn 3.375gm/ 100 ml (Pmx)) 100 ml @ 200 mls /hr Q8 IVPB Last administered on 09/16/16 13:08; Admin Dose 200 MLS/HR; Start 09/13/16 at 06:00 Morphine Sulfate (morphine) 4 mg Q4H PRN IV PAIN LEVEL 7-10 Last administered on 09/16/16 11:14; Admin Dose 4 MG; Start 09/13/16 at 06:00 Insulin Glargine (Lantus) 15 unit DAILY@20 SC Last administered on 09/15/16 22 :03; Admin Dose 15 UNIT; Start 09/14/16 at 20:00 SUHAS ORTEGA MD Sep 16, 2016 14:49
[2016-09-16 16:13] LABS: INR 1.6; PROTIME 19.2 Sec (12.2-14.2); PT RATIO 1.5
[2016-09-16 16:14] LABS: PARTIAL THROMBOPLASTIN TIME 41.3 Sec (25.0-35.0)
--- NOTE | 2016-09-16 17:12 | RADRPT ---
PROCEDURE: US Abdomen (limited). CLINICAL INDICATION: Abdominal pain and distension. TECHNIQUE: Multiple real-time longitudinal and transverse images of the four quadrants of the abdo men were acquired utilizing a curved array transducer. Images were reviewed on a high-resolution PAC S workstation. COMPARISON: None FINDINGS: There is trace free fluid in the abdomen. IMPRESSION: 1. Trace free fluid in the abdomen. RPTAT: QQ .Eric Leone MD, MD Date Time Electronically viewed and signed by .Eric Leone MD, MD on 09/16/2016 17:12 .R/
[2016-09-16 19:50] VITALS: BP 120/55; RESP 18
[2016-09-16] MEDS: INSULIN GLARGINE [LANtus] 3 ML PEN SC SCH (20:20)
[2016-09-17] MEDS: SOD CHLORIDE 0.9% 1,000 ML IV SCH (00:20)
[2016-09-17] MEDS: morphine 4 MG/ML VIAL IV PRN ×3 (03:57→17:28)
[2016-09-17 04:49] LABS: ADD SCAN DIFF NO
[2016-09-17 05:07] LABS: ABNORMAL IP MESSAGE 1; BASOPHILS % 0.2 % (0.0-2.0); EOSINOPHILS # 0.1 10^3/ul (0.0-0.5); HEMATOCRIT 25.3 % (37.0-47.0); HEMOGLOBIN 8.3 g/dl (12.0-16.0); LYMPHOCYTES # 0.8 10^3/ul (0.8-2.9); MEAN CORPUSCULAR HEMOGLOBIN 32.2 pg (29.0-33.0); MEAN CORPUSCULAR HGB CONC 32.8 g/dl (32.0-37.0); MEAN CORPUSCULAR VOLUME 98.1 fl (82.0-101.0); MEAN PLATELET VOLUME 12.6 fl (7.4-10.4); MONOCYTE # 0.4 10^3/ul (0.3-0.9); MONOCYTES % 10.4 % (0.0-11.0); NEUTROPHIL # 2.8 10^3/ul (1.6-7.5); NEUTROPHILS % 67.9 % (39.0-77.0); PLATELET COUNT 58 10^3/UL (140-415); RED BLOOD COUNT 2.58 10^6/ul (4.20-5.40); RED CELL DISTRIBUTION WIDTH 20.8 % (11.5-14.5); WHITE BLOOD COUNT 4.1 10^3/ul (4.8-10.8)
[2016-09-17 05:27] LABS: ALBUMIN 1.8 g/dl (3.3-4.9); POTASSIUM 4.1 mmol/L (3.5-5.1)
[2016-09-17 05:29] LABS: CREATININE 0.53 mg/dl (0.44-1.00)
[2016-09-17 05:30] LABS: ALBUMIN/GLOBULIN RATIO 0.48; BILIRUBIN,DIRECT 3.7 mg/dl (0.00-0.20); BILIRUBIN,INDIRECT 1.9 mg/dl (0-1.1); BILIRUBIN,TOTAL 5.6 mg/dl (0.2-1.3); CALCIUM 7.2 mg/dl (8.4-10.2); TOTAL PROTEIN 5.5 g/dl (6.1-8.1)
[2016-09-17] MEDS: PANTOPRAZOLE 40 MG INJ IV SCH ×2 (05:37→17:28)
[2016-09-17] MEDS: PIPER-TAZO 3.375 GM IV (PMX) 100 ML IVPB SCH ×2 (05:37→13:32)
[2016-09-17 07:37] VITALS: BP 125/59; RESP 20
[2016-09-17] MEDS: INSULIN ASPART [NOVOLOG] 3 ML PEN SC SCH ×6 (08:00→17:28)
[2016-09-17] MEDS: DOCUSATE SODIUM 100 MG CAP PO SCH (09:23)
--- NOTE | 2016-09-17 12:10 | CONS ---
Date/Time of Note Date/Time of Note DATE: 09/17/16 TIME: 12:06 Assessment/Plan Assessment/Plan Additional Assessment/Plan Abdominal pain/nausea/vomiting * Likely secondary to pancreatitis * Elevated bilirubin, trending downward * IVF Hydration * Nausea and pain control * Advance diet as tolerated * MRCP: 1. Multiple sub centimeter gallstones layering in the neck of the gallbladder. Mild diffuse wall thickening of the gallbladder which could be related to underlying cirrhosis. No distension of the gallbladder. 2. Mild diffuse intrahepatic biliary ductal dilatation. Limited visualization of the CBD related to existing CBD stent without significant extrahepatic biliary ductal dilatation. 3. Morphologic changes of cirrhosis. Stigmata of portal hypertension with evidence of moderate splenomegaly, large perisplenic varices and splenorenal shunt and trace ascites. * ERCP: 1. Occluded plastic biliary stent removed. 2. 10 x 80-mm covered Wallstent placed without problems. * Monitor LFTs, amylase, lipase History of HCC * Per biopsy reports from [facility] * Heme/onc following Liver Cirrhosis Paracentesis prn Fluid cytology with paracentesis Hepatitis panel, negative Diabetes Management per Primary GERD Continue PPI twice daily Further recommendations depend on clinical course Patient seen in collaboration with Dr. Singh Consultation Date/Type/Reason Admit Date/Time Sep 12, 2016 at 13:32 Type of Consultation: Gastroenterology Referring Provider: LOU BUSTOS 24 HR Interval Summary Free Text/Dictation Tolerating diet Denies abdominal pain, nausea, vomiting Exam/Review of Systems Vital Signs Vitals Vital Signs Date Time Temp Pulse Resp B/P Pulse Ox O2 Delivery O2 Flow Rate FiO2 09/17/16 07:37 98.1 70 20 125/59 97 09/13/16 19:54 Room Air 09/13/16 19:39 8.0 Intake and Output 09/16/16 09/16/16 09/17/16 15:00 23:00 07:00 Intake Total 100 ml 1000 ml 2950 ml Balance 100 ml 1000 ml 2950 ml Exam Constitutional: alert, oriented, well developed Psych: nl mood/affect Head: normocephalic Eyes: EOMI, nl conjunctiva, nl lids ENMT: nl external ears & nose, nl lips & teeth, nl nasal mucosa & septum Respiratory: clear to auscultation, normal air movement Cardiovascular: regular rate and rhythm Gastrointestinal: soft, nontender Musculoskeletal: nl extremities to inspection 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 Results Result Diagram: 09/17/16 0435 09/17/16 0435 Results 24 hrs Laboratory Tests Test 09/16/16 15:28 09/16/16 16:41 09/16/16 20:17 09/17/16 04:35 Activated Partial Thromboplast Time 41.3 H INR International Normalized Ratio 1.60 Prothrombin Time 19.2 #H Prothrombin Time Ratio 1.5 Bedside Glucose 171 126 Alanine Aminotransferase (ALT/SGPT) 47 Albumin 1.8 L Albumin/Globulin Ratio 0.48 Alkaline Phosphatase 169 H Anion Gap 10 Aspartate Amino Transf (AST/SGOT) 82 H Basophils # 0.0 Basophils % 0.2 Blood Urea Nitrogen 8 Calcium Level 7.2 L Carbon Dioxide Level 23 Chloride Level 108 Creatinine 0.53 Direct Bilirubin 3.70 #H Eosinophils # 0.1 Eosinophils % 2.0 Globulin 3.70 H Glucose Level 137 Hematocrit 25.3 L Hemoglobin 8.3 L Indirect Bilirubin 1.9 H Lymphocytes # 0.8 Lymphocytes % 19.0 Mean Corpuscular Hemoglobin 32.2 Mean Corpuscular Hemoglobin Concent 32.8 Mean Corpuscular Volume 98.1 Mean Platelet Volume 12.6 H Monocytes # 0.4 Monocytes % 10.4 Neutrophils # 2.8 Neutrophils % 67.9 Nucleated Red Blood Cells # 0.0 Nucleated Red Blood Cells % 0.0 Platelet Count 58 L Potassium Level 4.1 Red Blood Count 2.58 L Red Cell Distribution Width 20.8 H Sodium Level 137 Total Bilirubin 5.6 #H Total Protein 5.5 L White Blood Count 4.1 L Test 09/17/16 08:01 Bedside Glucose 106 Medications Medications Current Medications Ondansetron HCl (Zofran Inj) 4 mg Q6H PRN IV NAUSEA AND/OR VOMITING; Start 09/12 at 17:30 Docusate Sodium 100 mg 100 mg BID PO Last administered on 09/17/16 09:23; Admin Dose 100 MG; Start 09/12/16 at 21:00 Sodium Chloride (NS) 1,000 ml @ 80 mls/hr [id number] IV Last administered on 09/17 00:20; Admin Dose 80 MLS/HR; Start 09/12/16 at 17:30 Miscellaneous Information 1 ea NOTE XX ; Start 09/12/16 at 18:00 Glucose (Glutose) 15 gm Q15M PRN PO DECREASED GLUCOSE; Start 09/12/16 at 18:00 Glucose (Glutose) 22.5 gm Q15M PRN PO DECREASED GLUCOSE; Start 09/12/16 at 18:00 Dextrose (D50w Syringe) 25 ml Q15M PRN IV DECREASED GLUCOSE; Start 09/12/16 at 18:00 Dextrose (D50w Syringe) 50 ml Q15M PRN IV DECREASED GLUCOSE; Start 09/12/16 at 18:00 Glucagon (Glucagen) 1 mg Q15M PRN IM DECREASED GLUCOSE; Start 09/12/16 at 18:00 Glucose (Glutose) 15 gm Q15M PRN BUCCAL DECREASED GLUCOSE; Start 09/12/16 at 18: 00 Pantoprazole 40 mg 40 mg BID@06,18 IV Last administered on 09/17/16 05:37; Admin Dose 40 MG; Start 09/12/16 at 21:00 Piperacillin Sod/ Tazobactam Sod (Zosyn 3.375gm/ 100 ml (Pmx)) 100 ml @ 200 mls /hr Q8 IVPB Last administered on 09/17/16 05:37; Admin Dose 200 MLS/HR; Start 09/13/16 at 06:00 Morphine Sulfate (morphine) 4 mg Q4H PRN IV PAIN LEVEL 7-10 Last administered on 09/17/16 03:57; Admin Dose 4 MG; Start 09/13/16 at 06:00 Insulin Glargine (Lantus) 15 unit DAILY@20 SC Last administered on 09/16/16 20 :20; Admin Dose 15 UNIT; Start 09/14/16 at 20:00 JULITO STARKS Sep 17, 2016 12:10
[2016-09-17] MEDS ORDERED: AMO500 PO (14:31)
[2016-09-17] MEDS ORDERED: NOVO3I SC (14:32)
[2016-09-17] MEDS ORDERED: DEXT37.54 PO (14:32)
--- NOTE | 2016-09-17 14:44 | DS ---
Date/Time of Note Date/Time of Note DATE: 09/17/16 TIME: 14:34 Discharge Summary Admission/Discharge Info Admit Date/Time Sep 12, 2016 at 13:32 Discharge Date/Time Final Diagnosis 1. Occluded CBD stent, s/p ERCP 09/13/16 with occluded plastic biliary stent removed and a 10 x 80-mm covered Wallstent placed without problems, follow up with GI. 2. Enterococcus UTI, on amoxicillin 3. Sepsis, resolved 4. Hyperammonemia without hepatic encephalopathy: improved 5. Chronic anemia : transfused 1 unit PRBC, mproved 6. Chronic liver cirrhosis and HCC follow up with GI and oncology outpatient 7. Coagulopathy 2/2 liver cirrhosis : s/p FFP and Vit K x 1 / no active visible bleed 8. Cholelithiasis, without imaging evidence of cholecystitis at this time: No surgery per anirudh 9. Diabetes mellitus type 2, controlled with insulin, follow up with PCP Patient Condition: Stable Procedures G.I. LAB PROCEDURE DATE OF PROCEDURE: PROCEDURE: Endoscopic retrograde cholangiopancreatography with biliary plastic stent removal and insertion of a fully covered Wallstent. BRIEF HISTORY AND INDICATIONS: The patient with a history of hepatocellular carcinoma, recently proven with biopsy. The patient has had 2 ERCPs, with placement of biliary stents for an area of high-grade obstruction at the hilum of the liver over the bifurcation. The patient is hospitalized with a fever and jaundice, suggesting occlusion of stent. PREMEDICATION: General anesthesia by the anesthesiologist. SURGEON: Joie Singh MD. INSTRUMENT USED: Olympus side-viewing panendoscope. TECHNIQUE: After informed consent, with the patient/relatives understanding the procedure, its indications, potential risks and complications, including but not limited to: allergic reaction, bleeding, perforation or infection, and after all pertinent questions were answered to the patients satisfaction, the patient/relatives signed witnessed informed consent. Following this, premedication was administered slowly IV push under careful cardiovascular and respiratory monitoring with pulse oximetry, automatic blood pressure and court monitor. Once the sedative effect was achieved the patient was place in the prone position in the radiology special procedures suite; the side viewing panendoscope was introduced and advanced under visual control. Careful examination of the upper gastrointestinal tract, both on insertion as well as withdrawal of the instrument disclosed the following findings: FINDINGS: ESOPHAGUS: The mucosa of the entire esophagus appears within normal limits. There is no evidence of esophagitis, varices, neoplasm or stricture. No Hiatal Hernia identified. STOMACH: Upon entrance to the stomach air was insufflated, the gastric naylor distended normally. The mucosa of the fundus, body and antrum of the stomach was carefully examined both head-on and on retroflexion, and shows no abnormalities. There is no evidence of gastritis, ulcers or neoplasm. PYLORUS: The pylorus appears patent and within normal limits, with no evidence of gastric outlet obstruction. DUODENUM: The instrument was advanced to the second portion of the duodenum, where the ampulla was identified. A stent is seen exiting the ampulla. The stent appears to be clogged. A cannula was inserted adjacent to the stent and cholangiogram was obtained. There is no flow in the stent, suggesting total occlusion of the stent. At this point the cannula was retrieved. A snare was brought in and the stent was secured and retrieved. Following this, cholangiogram was obtained, which showed, indeed, an area of significant narrowing in the proximal hepatic duct, including the bifurcation. A balloon catheter was utilized and a viable area communicating with the right lobe of the liver was identified. Following this, a 10 x 80-mm fully covered Wallstent was introduced and deployed without difficulty and with excellent drainage. The patient tolerated the procedure well. IMPRESSION: 1. Occluded plastic biliary stent removed. 2. 10 x 80-mm covered Wallstent placed without problems. PLAN: Observation. Monitor liver function tests. Dictated By: JOIE SINGH MS/MARILYN Conf#: [id number] DID#: [id number] Hospital Course Ms. Leti Enriquez is a Maltese-speaking only female, a 56-year-old, who presents to us, being referred from as an outpatient because of fever , chills and severe jaundice. Of note is that this patient was recently managed at [facility] about a month ago for liver disease and at that time she ultimately had a liver biopsy and she had a common bile duct stent placed because of severe jaundice. Per the daughter, the liver biopsy was inconclusive and the patient was supposed to follow up for further care. , from where she was referred to the emergency room here. She was found to be septic in our ER and is being admitted for further workup and management. The patient's complaint is nausea and severe abdominal pain in the epigastric and right upper quadrant regions, as well as severe jaundice and reduced urinary output. Other than that, she denies chest pain. She denies cough. She denies passing out episodes. They have not noticed any change in her mentation. Patient was found of having enteroccocus UTI. She was treated with zosyn and she will be discharged on amoxicillin that the bacteremia sensitive to. Blood culture is negative. For obstructive jaundice, patient had ERCP on 09/14/2016 occluded plastic biliary stent was removed and a 10 x 80-mm covered Wallstent was placed without problems. She will follow up with GI. For chronic liver disease and HCC, patient will follow up with GI and oncology outpatient. Home Meds Active Scripts Dextrose (Glutose 15) 37.5 Gm Gel..gm., 15 GM PO Q15M Y for DECREASED GLUCOSE for 30 Days Prov:SUHAS ORTEGA MD 09/17/16 Insulin Aspart* (Novolog Insulin Pen*) 100 Unit/Ml Soln, 5 UNIT SC WITH MEALS for 30 Days Prov:SUHAS ORTEGA MD 09/17/16 Amoxicillin* (Amoxicillin*) 500 Mg Cap, 500 MG PO Q8, #30 CAP Prov:SUHAS ORTEGA MD 09/17/16 Follow-up Plan PCP in 1 week GI in one week Oncology in one week Pending Labs Laboratory Tests Test 09/16/16 15:28 09/16/16 16:41 09/16/16 20:17 09/17/16 04:35 Activated Partial Thromboplast Time 41.3Sec (25.0-35.0) INR International Normalized Ratio 1.60 Prothrombin Time 19.2Sec (12.2-14.2) Prothrombin Time Ratio 1.5 Bedside Glucose 171mg/dL (70-220) 126mg/dL (70-220) Alanine Aminotransferase (ALT/SGPT) 47IU/L (13-69) Albumin 1.8g/dl (3.3-4.9) Albumin/Globulin Ratio 0.48 Alkaline Phosphatase 169IU/L (42-121) Anion Gap 10 (8-16) Aspartate Amino Transf (AST/SGOT) 82IU/L (15-46) Basophils # 0.010^3/ul (0.0-0.1) Basophils % 0.2% (0.0-2.0) Blood Urea Nitrogen 8mg/dl (7-20) Calcium Level 7.2mg/dl (8.4-10.2) Carbon Dioxide Level 23mmol/L (21-31) Chloride Level 108mmol/L (97-110) Creatinine 0.53mg/dl (0.44-1.00) Direct Bilirubin 3.70mg/dl (0.00-0.20) Eosinophils # 0.110^3/ul (0.0-0.5) Eosinophils % 2.0% (0.0-7.0) Globulin 3.70g/dl (1.3-3.2) Glucose Level 137mg/dl (70-220) Hematocrit 25.3% (37.0-47.0) Hemoglobin 8.3g/dl (12.0-16.0) Indirect Bilirubin 1.9mg/dl (0-1.1) Lymphocytes # 0.810^3/ul (0.8-2.9) Lymphocytes % 19.0% (15.0-51.0) Mean Corpuscular Hemoglobin 32.2pg (29.0-33.0) Mean Corpuscular Hemoglobin Concent 32.8g/dl (32.0-37.0) Mean Corpuscular Volume 98.1fl (82.0-101.0) Mean Platelet Volume 12.6fl (7.4-10.4) Monocytes # 0.410^3/ul (0.3-0.9) Monocytes % 10.4% (0.0-11.0) Neutrophils # 2.810^3/ul (1.6-7.5) Neutrophils % 67.9% (39.0-77.0) Nucleated Red Blood Cells # 0.010^3/ul (0.0-0.0) Nucleated Red Blood Cells % 0.0/100WBC (0.0-0.0) Platelet Count 5810^3/UL (140-415) Potassium Level 4.1mmol/L (3.5-5.1) Red Blood Count 2.5810^6/ul (4.20-5.40) Red Cell Distribution Width 20.8% (11.5-14.5) Sodium Level 137mmol/L (135-144) Total Bilirubin 5.6mg/dl (0.2-1.3) Total Protein 5.5g/dl (6.1-8.1) White Blood Count 4.110^3/ul (4.8-10.8) Test 09/17/16 08:01 09/17/16 12:10 Bedside Glucose 106mg/dL (70-220) 142mg/dL (70-220) SUHAS ORTEGA MD Sep 17, 2016 14:44
--- NOTE | 2016-09-17 23:12 | CONS ---
Date/Time of Note Date/Time of Note DATE: 09/17/16 TIME: 10:11 Assessment/Plan Assessment/Plan Chief Complaint/Hosp Course History of HCC * Per biopsy reports from [facility] * D/W PT AND FAMILY- DX,PROGNOSIS AND TREATMENT OPTIONS * await AFP Chronic anemia. monitor closely Abdominal pain/nausea/vomiting- 2 to Occluded plastic biliary stent * Likely secondary to pancreatitis * Elevated bilirubin * IVF Hydration * Nausea and pain control * Start soft diet * MRCP: 1. Multiple sub centimeter gallstones layering in the neck of the gallbladder. Mild diffuse wall thickening of the gallbladder which could be related to underlying cirrhosis. No distension of the gallbladder. 2. Mild diffuse intrahepatic biliary ductal dilatation. Limited visualization of the CBD related to existing CBD stent without significant extrahepatic biliary ductal dilatation. 3. Morphologic changes of cirrhosis. Stigmata of portal hypertension with evidence of moderate splenomegaly, large perisplenic varices and splenorenal shunt and trace ascites. * ERCP: 1. Occluded plastic biliary stent removed. 2. 10 x 80-mm covered Wallstent placed without problems. * Monitor LFTs, amylase, lipase Sepsis. The source could be an infected CBD stent versus a urinary tract infection. Hyperammonemia without hepatic encephalopathy. Chronic liver cirrhosis, source unclear, with evidence of obstruction. Cholelithiasis, without imaging evidence of cholecystitis at this time. Diabetes mellitus type 2, with suboptimal control. Liver Cirrhosis Paracentesis prn Fluid cytology with paracentesis Hepatitis panel, negative GERD Continue PPI twice daily Further recommendations depend on clinical course Problems: Consultation Date/Type/Reason Admit Date/Time Sep 12, 2016 at 13:32 Initial Consult Date 09/14/16 Type of Consultation: [facility] Referring Provider: LOU BUSTOS Exam/Review of Systems Vital Signs Vitals Vital Signs Date Time Temp Pulse Resp B/P Pulse Ox O2 Delivery O2 Flow Rate FiO2 09/17/16 07:37 98.1 70 20 125/59 97 09/13/16 19:54 Room Air 09/13/16 19:39 8.0 Intake and Output 09/16/16 09/16/16 09/17/16 14:59 22:59 06:59 Intake Total 100 ml 1000 ml 2950 ml Balance 100 ml 1000 ml 2950 ml Results Result Diagram: 09/17/16 0435 09/17/16 0435 Results 24 hrs Laboratory Tests Test 09/17/16 04:35 09/17/16 08:01 09/17/16 12:10 09/17/16 17:22 Alanine Aminotransferase (ALT/SGPT) 47 Albumin 1.8 L Albumin/Globulin Ratio 0.48 Alkaline Phosphatase 169 H Anion Gap 10 Aspartate Amino Transf (AST/SGOT) 82 H Basophils # 0.0 Basophils % 0.2 Blood Urea Nitrogen 8 Calcium Level 7.2 L Carbon Dioxide Level 23 Chloride Level 108 Creatinine 0.53 Direct Bilirubin 3.70 #H Eosinophils # 0.1 Eosinophils % 2.0 Globulin 3.70 H Glucose Level 137 Hematocrit 25.3 L Hemoglobin 8.3 L Indirect Bilirubin 1.9 H Lymphocytes # 0.8 Lymphocytes % 19.0 Mean Corpuscular Hemoglobin 32.2 Mean Corpuscular Hemoglobin Concent 32.8 Mean Corpuscular Volume 98.1 Mean Platelet Volume 12.6 H Monocytes # 0.4 Monocytes % 10.4 Neutrophils # 2.8 Neutrophils % 67.9 Nucleated Red Blood Cells # 0.0 Nucleated Red Blood Cells % 0.0 Platelet Count 58 L Potassium Level 4.1 Red Blood Count 2.58 L Red Cell Distribution Width 20.8 H Sodium Level 137 Total Bilirubin 5.6 #H Total Protein 5.5 L White Blood Count 4.1 L Bedside Glucose 106 142 88 ROBYN CANTU MD Sep 17, 2016 23:12
== END 2016-09-17 18:03 | disposition home or self-care (01) | DRG 949 ==
LOC: E/R 11:19 → PP2 13:32 → UNDOADMIN 17:06
PROVIDERS: ADMIT Family Medicine; ATTEND Family Medicine
PROC: 0F798DZ Dilation of Common Bile Duct with Intraluminal Device, Via Natural or Artificial Opening Endoscopic (ICD-10-PCS; 2016-09-13)
PROC: 0FPB8DZ Removal of Intraluminal Device from Hepatobiliary Duct, Via Natural or Artificial Opening Endoscopic (ICD-10-PCS; principal; 2016-09-13 18:00)
DX: T85.858A Stenosis due to other internal prosthetic devices, implants and grafts, initial encounter (principal); K83.1 Obstruction of bile duct; A41.9 Sepsis, unspecified organism; K85.90 Acute pancreatitis without necrosis or infection, unspecified; D68.4 Acquired coagulation factor deficiency; C22.0 Liver cell carcinoma; T85.79XA Infection and inflammatory reaction due to other internal prosthetic devices, implants and grafts, initial encounter; K76.6 Portal hypertension; R18.8 Other ascites; N39.0 Urinary tract infection, site not specified; K72.90 Hepatic failure, unspecified without coma; K74.60 Unspecified cirrhosis of liver; K80.20 Calculus of gallbladder without cholecystitis without obstruction; E11.9 Type 2 diabetes mellitus without complications; Z76.82 Awaiting organ transplant status; B95.2 Enterococcus as the cause of diseases classified elsewhere
CPT/HCPCS: 36430; 71010; 74176; 74181; 74330; 76705; 80053; 80061; 80076; 81001; 81003; 82105; 82140; 82150; 82248; 82550; 82553; 82962; 83036; 83605; 83690; 83735; 84450; 84460; 84484; 85025; 85610; 85730; 86644; 86704; 86709; 86803; 86850; 86900; 86901; 86920; 87040; 87086; 87340; 93005; 96365; 96366; 96367; C2617; C9113; J0330; J0690; J0692; J1815; J2270; J2370; J2543; J3370; J3475; J7030; J7050; P9016; P9059; Q9967

== ENCOUNTER 2016-12-09 02:39 | Inpatient (IN) | payer OTHER ==
[~2016-12-09] VITALS: Ht 154.9 cm; Wt 79.0 kg
[~2016-12-09 02:39] MED LIST: AMO500 PO; DEXT37.54 PO; NOVO3I SC
[2016-12-09 06:03] VITALS: BP 144/60; PULSE 70; RESP 18
[2016-12-09 06:04] VITALS: Ht 154.9 cm; Wt 79.0 kg
[2016-12-09] MEDS ORDERED: ONDANSETRON 4 MG INJ IV PRN (07:00)
[2016-12-09] MEDS ORDERED: morphine 2 MG INJ IV PRN (07:00)
[2016-12-09 07:27] VITALS: BP 119/64; RESP 19
[2016-12-09] MEDS ORDERED: GLUCOSE GEL 15 GRAM TUBE PO PRN ×2 (07:30)
[2016-12-09] MEDS ORDERED: GLUCAGON 1 MG INJ IM PRN (07:30)
[2016-12-09] MEDS ORDERED: GLUCOSE GEL 15 GRAM TUBE BUCCAL PRN (07:30)
[2016-12-09] MEDS ORDERED: DEXTROSE 50% 50 ML SYRINGE IV PRN ×2 (07:30)
[2016-12-09] MEDS: SPIRONOLACTONE 50 MG TAB PO SCH (08:46)
[2016-12-09] MEDS: FUROSEMIDE 20 MG INJ IV SCH (08:46)
[2016-12-09] MEDS: INSULIN ASPART [NOVOLOG] 3 ML PEN SC SCH ×5 (08:53→20:41)
[2016-12-09 10:09] LABS: ADD SCAN DIFF NO
[2016-12-09 10:13] LABS: ABNORMAL IP MESSAGE 1; BASOPHILS % 0.4 % (0.0-2.0); EOSINOPHILS # 0.1 10^3/ul (0.0-0.5); HEMATOCRIT 25.4 % (37.0-47.0); HEMOGLOBIN 8.1 g/dl (12.0-16.0); LYMPHOCYTES # 0.8 10^3/ul (0.8-2.9); LYMPHOCYTES % 33.1 % (15.0-51.0); MEAN CORPUSCULAR HEMOGLOBIN 30.6 pg (29.0-33.0); MEAN CORPUSCULAR HGB CONC 31.9 g/dl (32.0-37.0); MEAN CORPUSCULAR VOLUME 95.8 fl (82.0-101.0); MEAN PLATELET VOLUME 13.8 fl (7.4-10.4); MONOCYTE # 0.2 10^3/ul (0.3-0.9); MONOCYTES % 7.6 % (0.0-11.0); NEUTROPHIL # 1.3 10^3/ul (1.6-7.5); NEUTROPHILS % 55.9 % (39.0-77.0); PLATELET COUNT 54 10^3/UL (140-415); RED BLOOD COUNT 2.65 10^6/ul (4.20-5.40); RED CELL DISTRIBUTION WIDTH 16.6 % (11.5-14.5); WHITE BLOOD COUNT 2.4 10^3/ul (4.8-10.8)
[2016-12-09 10:36] LABS: IRON 51 ug/dl (35-150)
[2016-12-09 10:40] LABS: ALBUMIN 2.9 g/dl (3.3-4.9); ALBUMIN/GLOBULIN RATIO 0.7; BILIRUBIN,DIRECT 0.2 mg/dl (0.00-0.20); BILIRUBIN,INDIRECT 2.6 mg/dl (0-1.1); BILIRUBIN,TOTAL 2.8 mg/dl (0.2-1.3); CALCIUM 7.8 mg/dl (8.4-10.2); CREATININE 0.54 mg/dl (0.44-1.00); MAGNESIUM 1.8 mg/dl (1.7-2.5); PHOSPHORUS 4.6 mg/dl (2.5-4.9); POTASSIUM 4.1 mmol/L (3.5-5.1)
[2016-12-09 10:47] LABS: TOTAL IRON BINDING CAPACITY 274 ug/dl (241-421)
[2016-12-09 11:40] LABS: FERRITIN 19.7 ng/ml (11.1-264.0)
[2016-12-09] MEDS: LACTULOSE 30ML CUP PO SCH ×2 (13:21→22:09)
[2016-12-09] MEDS ORDERED: AMPICILLIN 2 GM/NS (PMX) 100 ML IVPB SCH (14:30)
[2016-12-09] MEDS ORDERED: IBUPROFEN 600 MG TAB PO PRN (15:00)
[2016-12-09 15:01] LABS: CHOL/HDL RATIO 3.7 RATIO
--- NOTE | 2016-12-09 15:14 | HP ---
DATE OF ADMISSION: 12/09/2016 IDENTIFICATION: This is a 56-year-old female. CHIEF COMPLAINT: Generalized weakness and body aches. HISTORY OF PRESENT ILLNESS: A 56-year-old female with past medical history of hepatocellular carcin michele with a CBD stent placed in the past, enterococcus UTI in the past, anemia, questionable cirrhosi s, type 2 diabetes who was transferred over here from outside hospital due to insurance purposes. S he initially presented over there with body aches and weakness for the last 8 days. She has also be en having dizziness symptoms, but no loss of consciousness. She has also been having off and on dys uria, but no hematuria, no chest pain, no shortness of breath, no abdominal pain, no diarrhea or con stipation. When she was admitted to the outside hospital, she was diagnosed with UTI and again was transferred over here due to insurance purposes. The patient was last hospitalized here at our hosp [facility] from 09/12/2016 to 09/17/2016. At that time she had an occluded CBD stent that was removed and it looks like it was replaced at that time, along with a UTI at that time. PAST MEDICAL HISTORY: As stated above. ALLERGIES: NO KNOWN DRUG ALLERGIES. MEDICATIONS AT HOME: 1. Amoxicillin 500 mg q.8h. 2. Aspart insulin 5 units with meals. PAST SURGICAL HISTORY: CBD stent placed in the past, x1. SOCIAL HISTORY: Negative for smoking, drinking, or IV drug abuse. FAMILY HISTORY: Noncontributory. PHYSICAL EXAMINATION: VITAL SIGNS: T-max 98.7, pulse 63 to 73, respirations 18, blood pressure is 119/64, saturating 99% on room air. GENERAL: The patient is sitting in chair, family members at bedside, answering questions appropriat jerry, in no acute distress. HEENT: Pupils equal, round, react to light. Extraocular muscles intact. NECK: Supple, no thyromegaly. LUNGS: Clear to auscultation bilaterally. CARDIOVASCULAR: S1, S2 heard. No rubs or gallops. ABDOMEN: Soft, nontender, nondistended. Normal bowel sounds. No rebound or guarding. MUSCULOSKELETAL: No lower extremity edema bilaterally. NEUROLOGIC: No focal deficits. LABORATORIES: WBC 2.4, hemoglobin 8.1, hematocrit 25.4, platelets of 54. A1c is 7.5 and basic meta bolic panel is normal. The LFTs show a total bilirubin 2.8, direct is 0.2, indirect is 2.6, AST 54, ALT 37, alkaline phosphatase is 146. UA is pending, although at the outside hospital UA shown to b e positive. ASSESSMENT AND PLAN: A 56-year-old female coming in weakness and body aches for 3 days with a prior history of hepatocellular carcinoma and signs of urinary tract infection. 1. Weakness and body aches, again most likely secondary to urinary tract infection. The patient do es have a history of hepatocellular carcinoma. LFTs appear to be improved since her last admission. Will continue broad spectrum antibiotics for now. Follow up UA and urine culture results. Leydi wintern. pain and fevers and Motrin for pain control, IV fluids as well. 2. History of hepatocellular carcinoma. Again, she has been following up with the primary care doc tor as outpatient. She has been told in the past that there is apparently no options for chemothera py or radiation at this time. We will continue to monitor for now. If there are any abnormalities, consider Hematology/Oncology consult. 3. Type 2 diabetes. A1c 7.5. Continue sliding scale insulin. Consider restarting the patient's h ome Aspart insulin as well. 3. History of thrombocytopenia. Again, most likely secondary to the patient's liver disease. She has had coagulopathy in the past. Continue to monitor for now. No signs of any bleeding. Avoid al l anticoagulants at this time. 4. Prior history of UTI, enterococcus, again follow up UA and urine culture results on this admissi on and start ampicillin based on her prior sensitivities his UTI at this time. 5. GI prophylaxis, will add H2 patricia. 6. Deep venous thrombosis prophylaxis, sequential compression devices. Dictated By: YUNIOR ROBINS/MARILYN Conf#: [id number] DID#: [id number]
[2016-12-09] MEDS: AMPICILLIN 2 GM/NS (PMX) 100 ML IVPB SCH ×2 (15:40→22:09)
[2016-12-09] MEDS: FAMOTIDINE 20 MG TAB PO SCH (15:40)
[2016-12-09] MEDS: SOD CHLORIDE 0.45% 1,000 ML IV SCH (15:40)
[2016-12-09 17:36] LABS: ADD UMIC YES; URINE BILIRUBIN (Dip) NEGATIVE (NEGATIVE); URINE BLOOD (Dip) NEGATIVE (NEGATIVE); URINE COLOR YELLOW (YELLOW); URINE KETONES (Dip) NEGATIVE (NEGATIVE); URINE LEUKOCYTE ESTERASE (Dip) TRACE (NEGATIVE); URINE NITRITE (Dip) NEGATIVE (NEGATIVE); URINE TOTAL PROTEIN (Dip) NEGATIVE (NEGATIVE); URINE UROBILINOGEN (Dip) 0.2 E.U./dL (0.1-1.0)
[2016-12-09 17:53] LABS: BACTERIA,URINE FEW; SQUAMOUS EPITHELIAL CELL,UR MODERATE; URINE RBCS NONE SEEN /HPF (0)
[2016-12-09 19:12] VITALS: BP 133/64; RESP 20
[2016-12-09] MEDS ORDERED: INSULIN GLARGINE [LANtus] 3 ML PEN SC SCH (20:00)
[2016-12-10] MEDS ORDERED: ACCU-CHEK XX SCH ×2 (02:00)
[2016-12-10] MEDS: SOD CHLORIDE 0.45% 1,000 ML IV SCH ×2 (04:29→16:46)
[2016-12-10] MEDS: AMPICILLIN 2 GM/NS (PMX) 100 ML IVPB SCH ×3 (04:30→16:00)
[2016-12-10 05:38] LABS: ADD SCAN DIFF NO
[2016-12-10 05:41] LABS: ABNORMAL IP MESSAGE 1; HEMATOCRIT 23.7 % (37.0-47.0); HEMOGLOBIN 7.7 g/dl (12.0-16.0); MEAN CORPUSCULAR HEMOGLOBIN 30.8 pg (29.0-33.0); MEAN CORPUSCULAR HGB CONC 32.5 g/dl (32.0-37.0); MEAN CORPUSCULAR VOLUME 94.8 fl (82.0-101.0); MEAN PLATELET VOLUME 11.9 fl (7.4-10.4); PLATELET COUNT 44 10^3/UL (140-415); RED CELL DISTRIBUTION WIDTH 16.7 % (11.5-14.5); WHITE BLOOD COUNT 2.2 10^3/ul (4.8-10.8)
[2016-12-10] MEDS: LACTULOSE 30ML CUP PO SCH ×2 (05:47→13:21)
[2016-12-10] MEDS: FUROSEMIDE 20 MG INJ IV SCH (05:48)
[2016-12-10 06:13] LABS: CALCIUM 7.7 mg/dl (8.4-10.2); CREATININE 0.51 mg/dl (0.44-1.00); POTASSIUM 3.9 mmol/L (3.5-5.1)
[2016-12-10 07:01] LABS: ALBUMIN 2.4 g/dl (3.3-4.9); BILIRUBIN,DIRECT 0.1 mg/dl (0.00-0.20); BILIRUBIN,INDIRECT 2.5 mg/dl (0-1.1); BILIRUBIN,TOTAL 2.6 mg/dl (0.2-1.3); TOTAL PROTEIN 6.2 g/dl (6.1-8.1)
[2016-12-10 07:44] VITALS: BP 150/68; RESP 18
[2016-12-10] MEDS: SPIRONOLACTONE 50 MG TAB PO SCH (08:39)
[2016-12-10] MEDS: FAMOTIDINE 20 MG TAB PO SCH (08:39)
[2016-12-10] MEDS: INSULIN ASPART [NOVOLOG] 3 ML PEN SC SCH ×6 (08:44→17:55)
[2016-12-10] MEDS ORDERED: SOD CHLORIDE 0.9% 250 ML IV* ONE (09:21)
[2016-12-10 09:34] LABS: EOSINOPHILS # 0.1 10^3/ul (0.0-0.5); LYMPHOCYTES # 0.6 10^3/ul (0.8-2.9); MONOCYTE # 0.2 10^3/ul (0.3-0.9); NEUTROPHIL # 1.3 10^3/ul (1.6-7.5)
--- NOTE | 2016-12-10 14:16 | PDOCDIS ---
Discharge Instructions CONDITION Patient Condition: Stable HOME CARE INSTRUCTIONS: Special Diet: CARB CONTROLLED; VEGETARIAN ACTIVITY: Activity Restrictions: Slowly Increase Activity FOLLOW UP/APPOINTMENTS Appointments Please take your medications as prescribed, see your doctor in the clinic in 1 week. YUNIOR RONDON Dec 10, 2016 14:16
[2016-12-10] MEDS ORDERED: AMO500 PO (14:17)
[2016-12-10] MEDS ORDERED: LANT3I SC (14:23)
--- NOTE | 2016-12-10 14:49 | DS ---
DATE OF ADMISSION: 12/09/2016 DATE OF DISCHARGE: 12/10/2016 HOSPITAL COURSE: A 56-year-old female originally admitted on 12/09/2016, being discharged home on 12/10/2016. The patient came in with generalized body aches and weakness. She was transferred over here due to insurance purposes after presenting to an outside hospital. She was admitted, she had a slight leukopenia and she had a slight anemia. Hemoglobin was initially 8.1 down to 7.7 on the next day, but no signs of any bleeding. She was given PRBC transfusion. Her occult test was negative. Over the course of her hospital stay, she was also diagnosed with a UTI and placed on antibiotics. Her generalized weakness symptoms improved after getting IV fluids and IV antibiotics and also given a PRBC transfusion. She was able to ambulate and tolerate a p.o. diet. She will be discharged home today in improved condition. DISCHARGE MEDICATIONS: She will be sent with: 1. Amoxicillin 500 mg p.o. q.8 hours for 7 more days. 2. Lantus 15 U Sub Q QHS 3. Aspart insulin 5 units with meals. FOLLOWUP: She will need to follow up with a primary care doctor in clinic in the next 1 to 2 weeks. FINAL DIAGNOSES: 1. Generalized weakness, body aches secondary to a combination of urinary tract infection and anemia, status post antibiotic treatment and packed red blood cell transfusion. 2. History of hepatocellular carcinoma with CBD stent in place, in the past. 3. History of enterococcus urinary tract infection in the past. 4. Questionable cirrhosis. 5. Type 2 diabetes. 6. Anemia. Time spent discharging patient 40 minutes. Dictated By: YUNIOR ORELLANA Conf#: [id number] DID#: [id number] MTDD
== END 2016-12-10 18:30 | disposition home or self-care (01) | DRG 812 ==
LOC: MS1 05:40
PROVIDERS: ADMIT Internal Medicine; ATTEND Internal Medicine
PROC: 30233N1 Transfusion of Nonautologous Red Blood Cells into Peripheral Vein, Percutaneous Approach (ICD-10-PCS; principal; 2016-12-10)
DX: D64.9 Anemia, unspecified (principal); D69.6 Thrombocytopenia, unspecified; C22.0 Liver cell carcinoma; K74.60 Unspecified cirrhosis of liver; N39.0 Urinary tract infection, site not specified; E11.9 Type 2 diabetes mellitus without complications; Z87.440 Personal history of urinary (tract) infections; Z96.89 Presence of other specified functional implants
CPT/HCPCS: 36430; 80048; 80053; 80061; 80076; 81001; 82270; 82728; 82962; 83036; 83540; 83735; 84100; 85025; 86850; 86900; 86901; 86920; 87086; J1940; J0290; J1815; J7040; P9016

== ENCOUNTER 2017-01-11 11:47 | Inpatient (IN) | payer OTHER ==
[~2017-01-11] VITALS: Ht 157.5 cm; Wt 79.0 kg
[~2017-01-11 11:47] MED LIST changes: +LANT3I SC
[2017-01-11] MEDS ORDERED: morphine 4 MG/ML VIAL IV STA (12:31)
[2017-01-11] MEDS ORDERED: ONDANSETRON 4 MG INJ IV STA (12:31)
[2017-01-11 12:34] VITALS: TEMP 98.6
--- NOTE | 2017-01-11 12:34 | ERD ---
ER Documentation Chief Complaint Date/Time DATE: 01/11/17 TIME: 12:33 Chief Complaint RIGHT UPPER QUAD ABD PAIN (HX HEPATIC GROWTH) HEADACHE, BACK PAIN X 5 DAYS HPI Patient is a 57-year-old female with cirrhosis and hepatic mass who presents to the ER with acute on chronic right flank pain for 4 days. The patient states she has had the same pain for months and previously was on morphine, but is no longer on pain medication. She states that the pain has been worse over the last 4 days. She reports dysuria. She denies fever, vomiting, abdominal pain. She denies hematuria. She denies shortness of breath, chest pain. ROS All systems reviewed and are negative except as per history of present illness. Medications Home Meds Reported Medications Insulin Glargine* (Lantus*) 100 Unit/Ml Soln, 15 UNIT SC QAM, #1 VIAL 01/11/17 Omeprazole* (Omeprazole*) 20 Mg Capsule.dr, 20 MG PO DAILY, #30 CAP 01/11/17 Benazepril Hcl* (Benazepril Hcl*) Unknown Strength Tablet, 1 TAB PO DAILY for PRN, #30 TAB 01/11/17 Lactulose* (Lactulose*) 10 Gm/15 Ml Solution, 10 GM PO TID, ML 01/11/17 Metoclopramide Hcl* (Metoclopramide Hcl*) Unknown Strength Tablet, 1 TAB PO Q6H Y for NAUSEA AND OR VOMITING, TAB 01/11/17 Furosemide* (Furosemide*) 40 Mg Tablet, 40 MG PO DAILY, TAB 01/11/17 Discontinued Scripts Insulin Glargine* (Lantus*) 100 Unit/Ml Soln, 15 UNIT SC DAILY@20 for 30 Days, 2 Refills Prov:YUNIOR RONDON S. 12/10/16 Amoxicillin* (Amoxicillin*) 500 Mg Cap, 500 MG PO Q8 for 7 Days, #21 CAP Prov:YUNIOR RONDON S. 12/10/16 Dextrose (Glutose 15) 37.5 Gm Gel..gm., 15 GM PO Q15M Y for DECREASED GLUCOSE for 30 Days Prov:SUHAS ORTEGA MD 09/17/16 Insulin Aspart* (Novolog Insulin Pen*) 100 Unit/Ml Soln, 5 UNIT SC WITH MEALS for 30 Days Prov:SUHAS ORTEGA MD 09/17/16 Allergies Allergies: Coded Allergies: No Known Allergy (Unverified , 01/11/17) PMhx/Soc Past medical history: Diabetes mellitus, cirrhosis Past surgical history: Social history: Denies tobacco or alcohol History of Surgery: Yes (ERCP (06/2016)) Anesthesia Reaction: No Hx Neurological Disorder: Yes (chronic pain; occassional trembles in hand) Hx Respiratory Disorders: No Hx Cardiac Disorders: Yes (HTN) Hx Psychiatric Problems: No Hx Miscellaneous Medical Probl: Yes Hx Alcohol Use: No Hx Substance Use: No Hx Tobacco Use: No FmHx Family History: No coronary disease, No diabetes Physical Exam Vitals Vital Signs Date Time Temp Pulse Resp B/P Pulse Ox O2 Delivery O2 Flow Rate FiO2 01/11/17 12:34 98.6 78 18 127/60 99 Room Air 01/11/17 11:52 99.3 88 18 145/64 100 Physical Exam Const: Alert, no acute distress Head: Atraumatic Eyes: Normal Conjunctiva, no pallor, no icterus ENT: Normal External Ears, Nose and Mouth. Mucous membranes moist Neck: Full range of motion..~ No meningismus. Resp: Clear to auscultation bilaterally, no wheezes, no rales Cardio: Regular rate and rhythm, no murmurs Abd: Soft, non tender, non distended. No rebound, no guard Skin: No petechiae or rashes Back: No midline or flank tenderness, no CVA tenderness Ext: No cyanosis, or edema Neur: Awake and alert, cranial nerves II through XII intact bilaterally, moves and feels 4 extremes appropriately Psych: Normal Mood and Affect Result Diagram: 01/11/17 1255 01/11/17 1255 Results 24 hrs Laboratory Tests Test 01/11/17 12:55 White Blood Count 2.710^3/ul Red Blood Count 2.9010^6/ul Hemoglobin 8.9g/dl Hematocrit 26.9% Mean Corpuscular Volume 92.8fl Mean Corpuscular Hemoglobin 30.7pg Mean Corpuscular Hemoglobin Concent 33.1g/dl Red Cell Distribution Width 19.1% Platelet Count 5510^3/UL Mean Platelet Volume fl Neutrophils % 75.0% Band Neutrophils % 3.0% Lymphocytes % 18.0% Monocytes % 4.0% Neutrophils # 2.010^3/ul Lymphocytes # 0.510^3/ul Monocytes # 0.110^3/ul Platelet Estimate PLT APPEAR DECREASED Sodium Level 138mmol/L Potassium Level 4.7mmol/L Chloride Level 110mmol/L Carbon Dioxide Level 22mmol/L Anion Gap 11 Blood Urea Nitrogen 7mg/dl Creatinine 0.50mg/dl Glucose Level 238mg/dl Calcium Level 7.9mg/dl Total Bilirubin 3.1mg/dl Direct Bilirubin 0.10mg/dl Indirect Bilirubin 3.0mg/dl Aspartate Amino Transf (AST/SGOT) 67IU/L Alanine Aminotransferase (ALT/SGPT) 28IU/L Alkaline Phosphatase 129IU/L Total Protein 7.2g/dl Albumin 2.8g/dl Globulin 4.40g/dl Albumin/Globulin Ratio 0.63 Lipase 176U/L Current Medications Medications (Trade) Dose Ordered Sig/Guilherme Route PRN Reason Start Time Stop Time Status Last Admin Dose Admin Morphine Sulfate 4 mg 4 mg ONCE STAT IV 01/11/17 12:31 01/11/17 12:34 DC 01/11/17 13:00 Sodium Chloride (NS) 1,000 ml @ 1,000 mls/hr Q1H ONCE IV 01/11/17 13:00 01/11/17 13:59 DC 01/11/17 12:59 Ondansetron HCl (Zofran Inj) 4 mg ONCE STAT IV 01/11/17 12:31 01/11/17 12:34 DC 01/11/17 13:00 IV Flush 10 ml 10 ml STK-MED ONCE .ROUTE 01/11/17 13:36 01/11/17 13:37 DC Sodium Chloride (NS) 100 ml @ ud STK-MED ONCE .ROUTE 01/11/17 13:36 01/11/17 13:37 DC Iohexol (Omnipaque 300mg/ ml) 150 ml STK-MED ONCE .ROUTE 01/11/17 13:36 01/11/17 13:37 DC Procedures/MDM MDM: Patient is a 57-year-old female with cirrhosis and liver mass who presents with acute on chronic right flank pain for 4 days. She states that she has had this pain before for several months, but that it became worse recently. She also reports dysuria. She denies fever or vomiting. She has normal vital signs. She denies dark stool or rectal bleeding. Patient's labs show pancytopenia, which is likely related to her underlying cirrhosis. Her electrolytes are unremarkable except for slightly elevated sugar. The patient is a diabetic, and is on insulin. The patient was previously on morphine for chronic pain, but punctures, she only has one prescription back in October 2016. A CT scan was performed and is waiting read. A UA is pending. The patient was signed out to Dr. Shaikh at the end of my shift. Dr. Shaikh will review the CT scan and UA and determine the patient's final disposition. CT scan does not show any acute pathology, and the UA does not show signs of infection, the patient can be discharged home with a short course of p.o. morphine. I have advised her to follow-up closely with her PMD in this event. Departure Diagnosis: Primary Impression: Flank pain Additional Impressions: Pancytopenia Cirrhosis Hepatic cirrhosis type: unspecified hepatic cirrhosis Ascites presence: with ascites Qualified Code: K74.60 - Cirrhosis of liver with ascites, unspecified hepatic cirrhosis type Condition: Stable MORENITA DAVIS MD Jan 11, 2017 12:34
[2017-01-11] MEDS ORDERED: METO5TAB11 PO (12:46)
[2017-01-11] MEDS ORDERED: FURO40TA4 PO (12:46)
[2017-01-11] MEDS ORDERED: LACT10SO5 PO (12:47)
[2017-01-11] MEDS ORDERED: OMEP20CA16 PO (12:48)
[2017-01-11] MEDS ORDERED: BENA10TA48 PO (12:48)
[2017-01-11] MEDS ORDERED: LANT3I SC (12:49)
[2017-01-11 12:59] LABS: ADD SCAN DIFF NO
[2017-01-11] MEDS ORDERED: SOD CHLORIDE 0.9% 1,000 ML IV ONE (13:00)
[2017-01-11 13:03] LABS: ABNORMAL IP MESSAGE 1; HEMATOCRIT 26.9 % (37.0-47.0); HEMOGLOBIN 8.9 g/dl (12.0-16.0); MEAN CORPUSCULAR HEMOGLOBIN 30.7 pg (29.0-33.0); MEAN CORPUSCULAR HGB CONC 33.1 g/dl (32.0-37.0); MEAN CORPUSCULAR VOLUME 92.8 fl (82.0-101.0); RED CELL DISTRIBUTION WIDTH 19.1 % (11.5-14.5); WHITE BLOOD COUNT 2.7 10^3/ul (4.8-10.8)
[2017-01-11 13:25] LABS: ALBUMIN 2.8 g/dl (3.3-4.9); ALBUMIN/GLOBULIN RATIO 0.63; BILIRUBIN,DIRECT 0.1 mg/dl (0.00-0.20); BILIRUBIN,TOTAL 3.1 mg/dl (0.2-1.3); CALCIUM 7.9 mg/dl (8.4-10.2); CREATININE 0.5 mg/dl (0.44-1.00); POTASSIUM 4.7 mmol/L (3.5-5.1); TOTAL PROTEIN 7.2 g/dl (6.1-8.1)
[2017-01-11 13:36] LABS: PLATELET COUNT 55 10^3/UL (140-415)
[2017-01-11] MEDS ORDERED: IOHEXOL 300MG/ML 150 ML BTL ONE (13:36)
[2017-01-11] MEDS ORDERED: SOD CHLORIDE 0.9% 100 ML ONE (13:36)
[2017-01-11 14:01] LABS: LYMPHOCYTES # 0.5 10^3/ul (0.8-2.9); MONOCYTE # 0.1 10^3/ul (0.3-0.9)
[2017-01-11 14:02] LABS: PLATELET ESTIMATE PLT APPEAR DECREASED
[2017-01-11 14:45] LABS: ADD UMIC NO; UR ASCORBIC ACID NEGATIVE (NEGATIVE); UR BILIRUBIN (Dip) NEGATIVE (NEGATIVE); UR BLOOD (Dip) NEGATIVE (NEGATIVE); UR CLARITY CLEAR (CLEAR); UR COLOR AMBER (YELLOW); UR GLUCOSE (Dip) 1+ mg/dL (NEGATIVE); UR KETONES (Dip) NEGATIVE (NEGATIVE); UR LEUKOCYTE ESTERASE (Dip) NEGATIVE Leu/ul (NEGATIVE); UR NITRITE (Dip) NEGATIVE (NEGATIVE); UR SPECIFIC GRAVITY (Dip) 1.018 (1.003-1.030); UR TOTAL PROTEIN (Dip) NEGATIVE (NEGATIVE); UR UROBILINOGEN (Dip) NEGATIVE (NEGATIVE)
[2017-01-11] MEDS ORDERED: MORP10SO4 PO (14:48)
--- NOTE | 2017-01-11 15:05 | RADRPT ---
PROCEDURE: CT Abdomen and Pelvis with contrast. CLINICAL INDICATION: Abdominal pain TECHNIQUE: CT of the abdomen and pelvis was performed on a multi-detector scanner following the un complicated IV administration of 90 cc of Omnipaque 300. Coronal and sagittal images were reformatt ed from the axial data set. One or more of the following dose reduction techniques were used: autom ated exposure control, adjustment of the mA and/or kV according to patient size, use of iterative r econstruction technique. CTDI = 17.29 mGy. DLP = 906.57 mGy-cm. COMPARISON: CT, 09/12/2016 FINDINGS: CT abdomen: The lung bases are clear. The heart size is normal, without pericardial effusion. The liver is cir rhotic. Indeterminate 2.6 cm hypoenhancing lesion is seen in the hepatic dome posteriorly (3-16). T here is complete thrombosis and early cavernous transformation of the main portal vein. Cholelithias is is seen without evidence for cholecystitis. Biliary tree and pancreas are unremarkable. Splenom egaly is noted measuring 15 cm. Large perisplenic varices are identified. Adrenal glands and kidne ys are unremarkable. No urolithiasis or obstructive uropathy is identified. The stomach is grossly unremarkable. There is no abdominal aortic aneurysm or dissection. There is no retroperitoneal lymphadenopathy. The albaro hepatis region is clear. CT pelvis: There is mild ascites. No bowel obstruction, free intraperitoneal air or abscess is identified. Th e appendix is well visualized and normal. There is no diverticulosis, diverticulitis or colitis. P reviously seen common bile duct stent has become dislodged, and is now located within the terminal i leum and cecum. Urinary bladder, uterus and adnexa are grossly unremarkable. No pelvic mass or lym phadenopathy is identified. The surrounding osseous structures are remarkable for degenerative spondylosis of the spine. No ost eolytic or osteoblastic lesion is detected. IMPRESSION: 1. The liver is cirrhotic, with signs of portal hypertension including splenomegaly, mild ascites, and large perisplenic varices. 2. 2.6 cm hypoenhancing lesion is seen posteriorly in the hepatic dome, not definitely present on p rior noncontrast CT - hepatocellular carcinoma cannot be excluded in the setting of cirrhosis. Mult iphase contrast enhanced MRI or CT of the liver is recommended for further evaluation. 3. There is complete thrombosis and early cavernous transformation of the main portal vein. 4. Cholelithiasis is seen without evidence for cholecystitis. 5. Previously seen common bile duct stent has become dislodged, and is now located within the termi nal ileum and cecum. No biliary dilatation is identified. RPTAT: HDWR .Candelario Olivas MD, MD Date Time Electronically viewed and signed by .Candelario Olivas MD, on 01/11/2017 15:04 .R/
[2017-01-11 15:40] LABS: INR 2.11; PROTIME 23.9 Sec (12.2-14.2); PT RATIO 1.9
[2017-01-11 15:41] LABS: PARTIAL THROMBOPLASTIN TIME 43.5 Sec (25.0-35.0)
[2017-01-11] MEDS ORDERED: ACETAMINOPHEN 325 MG TAB PO PRN (16:00)
[2017-01-11] MEDS ORDERED: ONDANSETRON 4 MG INJ IV PRN (16:00)
[2017-01-11] MEDS ORDERED: LORAZEPAM 2 MG INJ IV PRN (17:30)
[2017-01-11] MEDS ORDERED: NACL 0.9% 3 ML SYG IV SCH (17:30)
[2017-01-11] MEDS ORDERED: NITROGLYCERIN (SL) 0.4 MG TAB SL PRN (17:30)
[2017-01-11] MEDS ORDERED: GLUCAGON 1 MG INJ IM PRN (17:30)
[2017-01-11] MEDS ORDERED: GLUCOSE GEL 15 GRAM TUBE PO PRN ×2 (17:30)
[2017-01-11] MEDS ORDERED: ALBUTEROL/IPRATROPIUM (NEB) 3 ML AMP HHN PRN (17:30)
[2017-01-11] MEDS ORDERED: DEXTROSE 50% 50 ML SYRINGE IV PRN ×2 (17:30)
[2017-01-11] MEDS ORDERED: GLUCOSE GEL 15 GRAM TUBE BUCCAL PRN (17:30)
[2017-01-11 17:40] VITALS: BP 136/61; RESP 17
[2017-01-11 18:36] VITALS: Ht 157.5 cm; Wt 79.0 kg
--- NOTE | 2017-01-11 19:15 | HP ---
Date/Time of Note Date/Time of Note DATE: 01/11/17 TIME: 19:07 Assessment/Plan VTE Prophylaxis VTE Prophylaxis Intervention: SCD's Lines/Catheters IV Catheter Type (from Nrs): Peripheral IV Assessment/Plan Chief Complaint/Hosp Course ASSESSMENT AND PLAN: 57-year-old female coming in with right flank pain for 4 days found with portal vein thrombosis and dysuria. 1. Right flank pain: Likely secondary to portal vein thrombosis. Her biliary stent has also migrated to the colon. The patient does have a history of hepatocellular carcinoma. -Admit patient to [facility] floor, get GI consult, check TSH A1c lipid panel. - Pain control medications. -We will need to weigh the risks versus benefits of trying to anticoagulate for patient's portal vein thrombosis. The concern is her rectal bleeding, presumably, lower GI bleeding, as well as her thrombocytopenia. We will need to discuss with GI teame broad spectrum antibiotics for now. Follow up UA and urine culture results. Tylenol p.r.n. pain and fevers and Motrin for pain control, IV fluids as well. 2. History of hepatocellular carcinoma. Again, she has been following up with the primary care doctor as outpatient. She has been told in the past that there is apparently no options for chemotherapy or radiation at this time. - We will continue to monitor for now. If there are any abnormalities, consider Hematology/Oncology consult. 3. Type 2 diabetes. Last A1c 7.5. - Continue sliding scale insulin. Consider restarting the patient's home Aspart insulin as well. 3. History of thrombocytopenia. Again, most likely secondary to the patient's liver disease. She has had coagulopathy in the past. - Continue to monitor for now. No signs of any bleeding. Avoid anticoagulants at this time. 4. Prior history of UTI, enterococcus-patient did complain of dysuria -again follow up UA and urine culture 5. GI prophylaxis ; PPI 6. Deep venous thrombosis prophylaxis, sequential compression devices. Problems: HPI/ROS Admit Date/Time Admit Date/Time Jan 11, 2017 at 15:55 Hx of Present Illness 57-year-old female with past medical history of carcinoma with stent placement, enterococcus UTI, type 2 diabetes, anemia, questionable cirrhosis, who presents with right flank pain; this has been going on for 4 days. The patient states she has had the same pain for months and previously was on morphine, but is no longer on pain medication. She states that the pain has been worse over the last 4 days. Also has been having dysuria. She also has been having off and on hemorrhoidal lower GI bleeding presumably, bright red blood per rectum, most recently as yesterday. She denies fever, vomiting, abdominal pain. She denies hematuria. She denies shortness of breath, chest pain. When she came into the ER today she had a CT abdomen pelvis performed that showed portal vein thrombosis which appears to be new, as well as migration of her stent that may need retrieval from GI. Patient was recently hospitalized at our hospital from December 09 to December 10, 2016 for anemia and urinary tract infection at that time, requiring blood transfusion then. PMH/Family/Social Family History Significant Family History: no pertinent family hx Social History Alcohol Use: none Smoking Status: Never smoker Drug Use: none Exam/Review of Systems Vital Signs Vitals Vital Signs Date Time Temp Pulse Resp B/P Pulse Ox O2 Delivery O2 Flow Rate FiO2 01/11/17 17:40 97.8 17 136/61 98 Room Air 01/11/17 15:48 78 Exam Exam Const: Alert, no acute distress Head: Atraumatic Eyes: Normal Conjunctiva, no pallor, no icterus ENT: Normal External Ears, Nose and Mouth. Mucous membranes moist Neck: Full range of motion..~ No meningismus. Resp: Clear to auscultation bilaterally, no wheezes, no rales Cardio: Regular rate and rhythm, no murmurs Abd: Soft, non tender, non distended. No rebound, no guard Skin: No petechiae or rashes Back: No midline or flank tenderness, no CVA tenderness Ext: No cyanosis, or edema Neur: Awake and alert, cranial nerves II through XII intact bilaterally, moves and feels 4 extremes appropriately Psych: Normal Mood and Affect Labs Result Diagram: 01/11/17 1255 01/11/17 1255 Medications Medications Current Medications Lorazepam (Ativan) 0.5 mg Q6H PRN IV ANXIETY; Start 01/11/17 at 17:30 Nitroglycerin (Nitroglycerin (Sl Tab) 0.4 Mg) 1 tab Q5M PRN SL ANGINA; Start at 17:30 Furosemide (Lasix) 40 mg DAILY PO ; Start 01/12/17 at 09:00 Insulin Glargine (Lantus) 15 unit QAM SC ; Start 01/12/17 at 09:00 Lactulose (Enulose) 10 gm TID PO ; Start 01/11/17 at 21:00 Pantoprazole (Protonix Tab) 40 mg DAILY@06 PO ; Start 01/12/17 at 06:00 Miscellaneous Information 1 ea NOTE XX ; Start 01/11/17 at 17:30 Glucose (Glutose) 15 gm Q15M PRN PO DECREASED GLUCOSE; Start 01/11/17 at 17:30 Glucose (Glutose) 22.5 gm Q15M PRN PO DECREASED GLUCOSE; Start 01/11/17 at 17:30 Dextrose (D50w Syringe) 25 ml Q15M PRN IV DECREASED GLUCOSE; Start 01/11/17 at 17:30 Dextrose (D50w Syringe) 50 ml Q15M PRN IV DECREASED GLUCOSE; Start 01/11/17 at 17:30 Glucagon (Glucagen) 1 mg Q15M PRN IM DECREASED GLUCOSE; Start 01/11/17 at 17:30 Glucose (Glutose) 15 gm Q15M PRN BUCCAL DECREASED GLUCOSE; Start 01/11/17 at 17: 30 YUNIOR RONDON Jan 11, 2017 19:14
[2017-01-11] MEDS ORDERED: ARTIFICIAL TEARS 15 ML OPH BOTH EYES PRN (19:30)
[2017-01-11] MEDS: INSULIN GLARGINE [LANtus] 3 ML PEN SC SCH (21:24)
[2017-01-11] MEDS: INSULIN ASPART [NOVOLOG] 3 ML PEN SC SCH (21:25)
[2017-01-11] MEDS: LACTULOSE 30ML CUP PO SCH (21:25)
[2017-01-11 22:00] VITALS: BP 147/65; RESP 20
[2017-01-12 01:40] VITALS: BP 118/59; PULSE 66; RESP 18
[2017-01-12] MEDS: INSULIN ASPART [NOVOLOG] 3 ML PEN SC SCH ×6 (01:49→20:41)
[2017-01-12] MEDS ORDERED: ACCU-CHEK XX SCH ×2 (02:00)
[2017-01-12] MEDS: SOD CHLORIDE 0.9% 1,000 ML IV SCH ×2 (02:11→16:48)
[2017-01-12] MEDS ORDERED: INSULIN ASPART [NOVOLOG] 3 ML PEN SC SCH (05:00)
[2017-01-12] MEDS: FUROSEMIDE 40 MG TAB PO SCH (05:27)
[2017-01-12] MEDS: PANTOPRAZOLE (EC) 40 MG TAB PO SCH (05:28)
[2017-01-12] MEDS ORDERED: INSULIN ASPART [NOVOLOG] 3 ML PEN SC ONE (05:30)
[2017-01-12 06:20] LABS: CHOL/HDL RATIO 5.8 RATIO
[2017-01-12 06:40] LABS: THYROID STIMULATING HORMONE 1.57 MIU/L (0.465-4.680)
[2017-01-12 06:59] LABS: CALCIUM 7.8 mg/dl (8.4-10.2); CREATININE 0.45 mg/dl (0.44-1.00); POTASSIUM 3.5 mmol/L (3.5-5.1)
[2017-01-12 07:28] LABS: ADD SCAN DIFF NO
[2017-01-12 07:33] LABS: ABNORMAL IP MESSAGE 1; HEMATOCRIT 24.4 % (37.0-47.0); HEMOGLOBIN 8.1 g/dl (12.0-16.0); MEAN CORPUSCULAR HEMOGLOBIN 30.9 pg (29.0-33.0); MEAN CORPUSCULAR HGB CONC 33.2 g/dl (32.0-37.0); MEAN CORPUSCULAR VOLUME 93.1 fl (82.0-101.0); PLATELET COUNT 38 10^3/UL (140-415); RED BLOOD COUNT 2.62 10^6/ul (4.20-5.40); RED CELL DISTRIBUTION WIDTH 19.5 % (11.5-14.5); WHITE BLOOD COUNT 2.4 10^3/ul (4.8-10.8)
[2017-01-12 07:52] LABS: ALBUMIN 2.1 g/dl (3.3-4.9); BILIRUBIN,INDIRECT 2.6 mg/dl (0-1.1); BILIRUBIN,TOTAL 2.6 mg/dl (0.2-1.3); TOTAL PROTEIN 5.9 g/dl (6.1-8.1)
[2017-01-12 08:02] VITALS: BP 131/58; RESP 18
[2017-01-12] MEDS ORDERED: INSULIN GLARGINE [LANtus] 3 ML PEN SC SCH (09:00)
[2017-01-12 09:21] LABS: LYMPHOCYTES # 0.5 10^3/ul (0.8-2.9); MONOCYTE # 0.2 10^3/ul (0.3-0.9); NEUTROPHIL # 1.6 10^3/ul (1.6-7.5); PLATELET ESTIMATE PLT APPEAR DECREASED
[2017-01-12] MEDS: LACTULOSE 30ML CUP PO SCH ×3 (10:35→20:41)
--- NOTE | 2017-01-12 10:58 | CONS ---
Date/Time of Note Date/Time of Note DATE: 01/12/17 TIME: 10:47 Assessment/Plan Assessment/Plan Additional Assessment/Plan Assessment * Right flank abdominal pain * Anemia Chronic vs acute * Portal vein thrombosis by CT scan * Diabetes mellitus * History of liver carcinoma * History of ERCP and Stent placement Plan * continue present management * Awaiting MRCP * request for liver enzymes' * Planned to do ERCP Friday pending result of MRCP Consultation Date/Type/Reason Admit Date/Time Jan 11, 2017 at 15:55 Date of Consultation: Jan 12, 2017 Type of Consultation: Gastroenterology Reason for Consultation Right flank pain.dislodged stent cbd Referring Provider: YUNIOR RONDON Hx of Present Illness 57 year old female with past medical history of hepatocellular carcinoma, diabetes,history of multiple ERCP (09/2016) stent placements,anemia and urinary tract infection presented in the emergency room complaining right flank pain and on and off hematochezia.Present condition apparently started 5 days as vague flanked pain getting worse 1 day prior to admission with associated vomiting.She denies any hematemesis,fever ,shortness of breath nor chest pain.She also complains of hematochezia on and off with last episode 3 days ago, denies melena .Emergency room workup revealed WBC 2.7,Hemoglobin 8.9 ,hematocrit 26.9,PT 23.9, AST 41 ALT [address] scan abdomen 1. The liver is cirrhotic , with signs of portal hypertension including splenomegaly, mild ascites, and large perisplenic varices. . 2.6 cm hypoenhancing lesion is seen posteriorly in the hepatic dome, not definitely present on prior noncontrast CT - hepatocellular carcinoma cannot be excluded in the setting of cirrhosis. Multiphase contrast enhanced MRI or CT of the liver is recommended for further evaluation.. There is complete thrombosis and early cavernous transformation of the main portal vein. Cholelithiasis is seen without evidence for cholecystitis. Previously seen common bile duct stent has become dislodged, and is now located within the terminal ileum and cecum. No biliary dilatation is identified. Presently on and off right flank pain no hematochezia,. Constitutional: improved, no complaints Eyes: no complaints ENT: no complaints Respiratory: no complaints Cardiovascular: no complaints Gastrointestinal: blood, pain Genitourinary: no complaints Musculoskeletal: no complaints Skin: no complaints Neurologic: no complaints Endocrine: no complaints Lymphatic: no complaints Psychological: nl mood/affect, no complaints Immunologic: no complaints Past Medical History Medical History: diabetes, gallstones, other (hepatocellular ca) Past Surgical History Past Surgical Hx: endoscopy (ercp) Family History Significant Family History: no pertinent family hx Social History Alcohol Use: none Smoking Status: Never smoker Drug Use: none Exam/Review of Systems Vital Signs Vitals Vital Signs Date Time Temp Pulse Resp B/P Pulse Ox O2 Delivery O2 Flow Rate FiO2 01/12/17 08:02 98.3 68 18 131/58 97 01/12/17 01:40 Room Air Intake and Output 01/11/17 01/11/17 01/12/17 15:00 23:00 07:00 Intake Total 600 ml 610 ml Output Total 400 ml Balance 600 ml 210 ml Exam Constitutional: alert, oriented, well developed Psych: nl mood/affect, no complaints Head: atraumatic, normocephalic Eyes: PERRL, nl conjunctiva, nl sclera ENMT: nl external ears & nose Neck: non-tender, supple Respiratory: clear to auscultation, normal air movement Cardiovascular: nl pulses, regular rate and rhythm Gastrointestinal: nl liver, spleen, non-tender, soft Musculoskeletal: nl extremities to inspection, nl gait and stance Extremities: normal pulses Neurological: nl speech, nl strength Skin: nl turgor, No rash or lesions Lymph: nl lymph nodes Results Result Diagram: 01/12/17 0436 01/12/17 043 Results 24 hrs Laboratory Tests Test 01/11/17 12:35 01/11/17 12:55 01/11/17 12:56 01/11/17 13:00 Urine Color SISSY Urine Clarity CLEAR Urine pH 7.0 Urine Specific [place] 1.018 Urine Ketones NEGATIVE Urine Nitrite NEGATIVE Urine Bilirubin NEGATIVE Urine Urobilinogen NEGATIVE Urine Leukocyte Esterase NEGATIVE Urine Hemoglobin NEGATIVE Urine Glucose 1+ H Urine Total Protein NEGATIVE White Blood Count 2.7 #L Red Blood Count 2.90 L Hemoglobin 8.9 L Hematocrit 26.9 L Mean Corpuscular Volume 92.8 Mean Corpuscular Hemoglobin 30.7 Mean Corpuscular Hemoglobin Concent 33.1 Red Cell Distribution Width 19.1 H Platelet Count 55 #L Mean Platelet Volume Neutrophils % 75.0 Band Neutrophils % 3.0 Lymphocytes % 18.0 Monocytes % 4.0 Neutrophils # 2.0 Lymphocytes # 0.5 L Monocytes # 0.1 L Platelet Estimate PLT APPEAR DECREASED Sodium Level 138 Potassium Level 4.7 Chloride Level 110 Carbon Dioxide Level 22 Anion Gap 11 Blood Urea Nitrogen 7 Creatinine 0.50 Glucose Level 238 H Calcium Level 7.9 L Total Bilirubin 3.1 H Direct Bilirubin 0.10 Indirect Bilirubin 3.0 H Aspartate Amino Transf (AST/SGOT) 67 H Alanine Aminotransferase (ALT/SGPT) 28 Alkaline Phosphatase 129 H Total Protein 7.2 Albumin 2.8 L Globulin 4.40 H Albumin/Globulin Ratio 0.63 Lipase 176 Free Thyroxine 1.72 Prothrombin Time 23.9 #H Prothrombin Time Ratio 1.9 INR International Normalized Ratio 2.11 Activated Partial Thromboplast Time 43.5 H Test 01/11/17 20:23 01/11/17 21:20 01/12/17 01:37 01/12/17 04:36 Bedside Glucose 370 H 353 H 273 H White Blood Count 2.4 L Red Blood Count 2.62 L Hemoglobin 8.1 L Hematocrit 24.4 L Mean Corpuscular Volume 93.1 Mean Corpuscular Hemoglobin 30.9 Mean Corpuscular Hemoglobin Concent 33.2 Red Cell Distribution Width 19.5 H Platelet Count 38 #L Mean Platelet Volume Neutrophils % 68.0 Band Neutrophils % 2.0 Lymphocytes % 19.0 Monocytes % 10.0 Eosinophils % 1.0 Neutrophils # 1.6 Lymphocytes # 0.5 L Monocytes # 0.2 L Eosinophils # 0.0 Platelet Estimate PLT APPEAR DECREASED Sodium Level 142 Potassium Level 3.5 Chloride Level 110 Carbon Dioxide Level 24 Anion Gap 12 Blood Urea Nitrogen 10 Creatinine 0.45 Glucose Level 195 Hemoglobin A1c 8.3 H Calcium Level 7.8 L Total Bilirubin 2.6 H Direct Bilirubin 0.00 Indirect Bilirubin 2.6 H Aspartate Amino Transf (AST/SGOT) 41 Alanine Aminotransferase (ALT/SGPT) 25 Alkaline Phosphatase 97 Total Protein 5.9 #L Albumin 2.1 L Triglycerides Level 103 Cholesterol Level 106 LDL Cholesterol, Calculated 67 HDL Cholesterol 18 L Cholesterol/HDL Ratio 5.8 Thyroid Stimulating Hormone (TSH) 1.570 Test 01/12/17 04:55 01/12/17 09:17 Bedside Glucose 193 177 Medications Medications Current Medications Lorazepam (Ativan) 0.5 mg Q6H PRN IV ANXIETY; Start 01/11/17 at 17:30 Nitroglycerin (Nitroglycerin (Sl Tab) 0.4 Mg) 1 tab Q5M PRN SL ANGINA; Start at 17:30 Furosemide (Lasix) 40 mg DAILY@06 PO ; Start 01/12/17 at 06:00 Lactulose (Enulose) 10 gm TID PO Last administered on 01/12/17 10:35; Admin Dose 10 GM; Start 01/11/17 at 21:00 Pantoprazole (Protonix Tab) 40 mg DAILY@06 PO ; Start 01/12/17 at 06:00 Miscellaneous Information 1 ea NOTE XX ; Start 01/11/17 at 17:30 Glucose (Glutose) 15 gm Q15M PRN PO DECREASED GLUCOSE; Start 01/11/17 at 17:30 Glucose (Glutose) 22.5 gm Q15M PRN PO DECREASED GLUCOSE; Start 01/11/17 at 17:30 Dextrose (D50w Syringe) 25 ml Q15M PRN IV DECREASED GLUCOSE; Start 01/11/17 at 17:30 Dextrose (D50w Syringe) 50 ml Q15M PRN IV DECREASED GLUCOSE; Start 01/11/17 at 17:30 Glucagon (Glucagen) 1 mg Q15M PRN IM DECREASED GLUCOSE; Start 01/11/17 at 17:30 Glucose (Glutose) 15 gm Q15M PRN BUCCAL DECREASED GLUCOSE; Start 01/11/17 at 17: 30 Eye Lubricant (Artificial Tears Oph) 2 drop Q6H PRN BOTH EYES DRY EYES; Start 01/11/17 at 19:30 Insulin Glargine (Lantus) 15 unit QHS SC Last administered on 01/11/17 21:24; Admin Dose 15 UNIT; Start 01/11/17 at 21:00 Insulin Aspart (Novolog Insulin Pen) NOVOLOG *MILD* ALGORI... Q4 SC Last administered on 01/12/17 09:28; Admin Dose 1 UNIT; Start 01/12/17 at 01:00 Diagnostic Test (Pha) 1 ea 1 ea 02 XX ; Start 01/13/17 at 02:00; Status Future Hold Sodium Chloride (NS) 1,000 ml @ 70 mls/hr [id number] IV Last administered on 02:11; Admin Dose 70 MLS/HR; Start 01/12/17 at 02:30 CHANELLE DOZIER MD Jan 12, 2017 10:57
--- NOTE | 2017-01-12 11:53 | PN ---
Date/Time of Note Date/Time of Note DATE: 01/12/17 TIME: 11:51 Assessment/Plan VTE Prophylaxis VTE Prophylaxis Intervention: SCD's Lines/Catheters IV Catheter Type (from [facility]): [place] Assessment/Plan Chief Complaint/Hosp Course ASSESSMENT AND PLAN: 57-year-old female coming in with right flank pain for 4 days found with portal vein thrombosis and dysuria. 1. Right flank pain: Likely secondary to portal vein thrombosis. Her biliary stent has also migrated to the colon. The patient does have a history of hepatocellular carcinoma. -Follow-up GI recommendations, for now keep her n.p.o. There is consideration about possible MRCP to be performed. - Pain control medications. -Also, we will need to weigh the risks versus benefits of trying to anticoagulate for patient's portal vein thrombosis. The concern is her rectal bleeding, presumably, lower GI bleeding, as well as her thrombocytopenia. We will need to discuss with GI team -Continue broad spectrum antibiotics for now. - Follow up UA and urine culture results. - Tylenol p.r.n. pain and fevers and Motrin for pain control, IV fluids as well. 2. History of hepatocellular carcinoma. Again, she has been following up with the primary care doctor as outpatient. She has been told in the past that there is apparently no options for chemotherapy or radiation at this time. - We will continue to monitor for now. If there are any abnormalities, consider Hematology/Oncology consult. 3. Type 2 diabetes. Last A1c 7.5. - Continue sliding scale insulin. 3. History of thrombocytopenia. Again, most likely secondary to the patient's liver disease. She has had coagulopathy in the past. - Continue to monitor for now. No signs of any bleeding. Avoid anticoagulants at this time. 4. Prior history of UTI, enterococcus-patient did complain of dysuria -again follow up UA and urine culture 5. GI prophylaxis ; PPI 6. Deep venous thrombosis prophylaxis, sequential compression devices. Problems: Subjective 24 Hr Interval Summary Free Text/Dictation Patient seen by GI team. No acute events overnight. Exam/Review of Systems Vital Signs Vitals Vital Signs Date Time Temp Pulse Resp B/P Pulse Ox O2 Delivery O2 Flow Rate FiO2 01/12/17 08:02 98.3 68 18 131/58 97 01/12/17 01:40 Room Air Intake and Output 01/11/17 01/11/17 01/12/17 15:00 23:00 07:00 Intake Total 600 ml 610 ml Output Total 400 ml Balance 600 ml 210 ml Exam Const: Alert, no acute distress Head: Atraumatic Eyes: Normal Conjunctiva, no pallor, no icterus ENT: Normal External Ears, Nose and Mouth. Mucous membranes moist Neck: Full range of motion..~ No meningismus. Resp: Clear to auscultation bilaterally, no wheezes, no rales Cardio: Regular rate and rhythm, no murmurs Abd: Soft, non tender, non distended. No rebound, no guard Skin: No petechiae or rashes Back: No midline or flank tenderness, no CVA tenderness Ext: No cyanosis, or edema Neur: Awake and alert, cranial nerves II through XII intact bilaterally, moves and feels 4 extremes appropriately Psych: Normal Mood and Affect Results Result Diagram: 01/12/17 0436 01/12/17 0436 Results 24 hrs Laboratory Tests Test 01/11/17 12:35 01/11/17 12:55 01/11/17 12:56 01/11/17 13:00 Urine Color SISSY Urine Clarity CLEAR Urine pH 7.0 Urine Specific [place] 1.018 Urine Ketones NEGATIVE Urine Nitrite NEGATIVE Urine Bilirubin NEGATIVE Urine Urobilinogen NEGATIVE Urine Leukocyte Esterase NEGATIVE Urine Hemoglobin NEGATIVE Urine Glucose 1+ H Urine Total Protein NEGATIVE White Blood Count 2.7 #L Red Blood Count 2.90 L Hemoglobin 8.9 L Hematocrit 26.9 L Mean Corpuscular Volume 92.8 Mean Corpuscular Hemoglobin 30.7 Mean Corpuscular Hemoglobin Concent 33.1 Red Cell Distribution Width 19.1 H Platelet Count 55 #L Mean Platelet Volume Neutrophils % 75.0 Band Neutrophils % 3.0 Lymphocytes % 18.0 Monocytes % 4.0 Neutrophils # 2.0 Lymphocytes # 0.5 L Monocytes # 0.1 L Platelet Estimate PLT APPEAR DECREASED Sodium Level 138 Potassium Level 4.7 Chloride Level 110 Carbon Dioxide Level 22 Anion Gap 11 Blood Urea Nitrogen 7 Creatinine 0.50 Glucose Level 238 H Calcium Level 7.9 L Total Bilirubin 3.1 H Direct Bilirubin 0.10 Indirect Bilirubin 3.0 H Aspartate Amino Transf (AST/SGOT) 67 H Alanine Aminotransferase (ALT/SGPT) 28 Alkaline Phosphatase 129 H Total Protein 7.2 Albumin 2.8 L Globulin 4.40 H Albumin/Globulin Ratio 0.63 Lipase 176 Free Thyroxine 1.72 Prothrombin Time 23.9 #H Prothrombin Time Ratio 1.9 INR International Normalized Ratio 2.11 Activated Partial Thromboplast Time 43.5 H Test 01/11/17 20:23 01/11/17 21:20 01/12/17 01:37 01/12/17 04:36 Bedside Glucose 370 H 353 H 273 H White Blood Count 2.4 L Red Blood Count 2.62 L Hemoglobin 8.1 L Hematocrit 24.4 L Mean Corpuscular Volume 93.1 Mean Corpuscular Hemoglobin 30.9 Mean Corpuscular Hemoglobin Concent 33.2 Red Cell Distribution Width 19.5 H Platelet Count 38 #L Mean Platelet Volume Neutrophils % 68.0 Band Neutrophils % 2.0 Lymphocytes % 19.0 Monocytes % 10.0 Eosinophils % 1.0 Neutrophils # 1.6 Lymphocytes # 0.5 L Monocytes # 0.2 L Eosinophils # 0.0 Platelet Estimate PLT APPEAR DECREASED Sodium Level 142 Potassium Level 3.5 Chloride Level 110 Carbon Dioxide Level 24 Anion Gap 12 Blood Urea Nitrogen 10 Creatinine 0.45 Glucose Level 195 Hemoglobin A1c 8.3 H Calcium Level 7.8 L Total Bilirubin 2.6 H Direct Bilirubin 0.00 Indirect Bilirubin 2.6 H Aspartate Amino Transf (AST/SGOT) 41 Alanine Aminotransferase (ALT/SGPT) 25 Alkaline Phosphatase 97 Total Protein 5.9 #L Albumin 2.1 L Triglycerides Level 103 Cholesterol Level 106 LDL Cholesterol, Calculated 67 HDL Cholesterol 18 L Cholesterol/HDL Ratio 5.8 Thyroid Stimulating Hormone (TSH) 1.570 Test 01/12/17 04:55 01/12/17 09:17 Bedside Glucose 193 177 Medications Medications Current Medications Lorazepam (Ativan) 0.5 mg Q6H PRN IV ANXIETY; Start 01/11/17 at 17:30 Nitroglycerin (Nitroglycerin (Sl Tab) 0.4 Mg) 1 tab Q5M PRN SL ANGINA; Start at 17:30 Furosemide (Lasix) 40 mg DAILY@06 PO ; Start 01/12/17 at 06:00 Lactulose (Enulose) 10 gm TID PO Last administered on 01/12/17t 10:35; Admin Dose 10 GM; Start 01/11/17 at 21:00 Pantoprazole (Protonix Tab) 40 mg DAILY@06 PO ; Start 01/12/17 at 06:00 Miscellaneous Information 1 ea NOTE XX ; Start 01/11/17 at 17:30 Glucose (Glutose) 15 gm Q15M PRN PO DECREASED GLUCOSE; Start 01/11/17 at 17:30 Glucose (Glutose) 22.5 gm Q15M PRN PO DECREASED GLUCOSE; Start 01/11/17 at 17:30 Dextrose (D50w Syringe) 25 ml Q15M PRN IV DECREASED GLUCOSE; Start 01/11/17 at 17:30 Dextrose (D50w Syringe) 50 ml Q15M PRN IV DECREASED GLUCOSE; Start 01/11/17 at 17:30 Glucagon (Glucagen) 1 mg Q15M PRN IM DECREASED GLUCOSE; Start 01/11/17 at 17:30 Glucose (Glutose) 15 gm Q15M PRN BUCCAL DECREASED GLUCOSE; Start 01/11/17 at 17: 30 Eye Lubricant (Artificial Tears Oph) 2 drop Q6H PRN BOTH EYES DRY EYES; Start 01/11/17 at 19:30 Insulin Glargine (Lantus) 15 unit QHS SC Last administered on 01/11/17 21:24; Admin Dose 15 UNIT; Start 01/11/17 at 21:00 Insulin Aspart (Novolog Insulin Pen) NOVOLOG *MILD* ALGORI... Q4 SC Last administered on 01/12/17 09:28; Admin Dose 1 UNIT; Start 01/12/17 at 01:00 Diagnostic Test (Pha) 1 ea 1 ea 02 XX ; Start 01/13/17 at 02:00; Status Future Hold Sodium Chloride (NS) 1,000 ml @ 70 mls/hr [id number] IV Last administered on 02:11; Admin Dose 70 MLS/HR; Start 01/12/17 at 02:30 YUNIOR RONDON Jan 12, 2017 11:53
--- NOTE | 2017-01-12 16:17 | RADRPT ---
PROCEDURE: MR Abdomen without contrast and MRCP. CLINICAL INDICATION: Liver lesion TECHNIQUE: MRI of the abdomen in conjunction with MRCP was performed on a 3 Thania magnet COMPARISON: CT, 01/11/2017. FINDINGS: There is a shrunken nodular cirrhotic liver with trace perihepatic ascites. There is subtle ill-def ined mildly T2 hyperintense lesion corresponding to the hypovascular lesion suggested on the prior C T. The biliary system is nondilated. Evaluation of the portal vein is obviated without intravenous contrast. Large perisplenic varices a re noted. Spleen is enlarged measuring 14.2 cm in craniocaudal length. Gallbladder is distended with small stones. Gallbladder wall thickening is nonspecific in the setti ng of liver cirrhosis and/or portal hypertension. There is mild anasarca. IMPRESSION: Limited examination due to the absence of intravenous contrast and significant respiratory motion ar tifact. The lesion identified on the prior CT in the right lobe of the liver cannot be evaluated in the pres ent evaluation without intravenous contrast. Recommend multiphasic contrast enhanced CT of the live r with and without contrast for further characterization. Portal vein thrombosis that is evident on the recent CT cannot be assessed without intravenous contr ast in the present evaluation. Liver cirrhosis with stigmata of portal hypertension including trace perihepatic ascites, portosyste jamshid collateral vessels, and splenomegaly. Cholelithiasis. Gallbladder wall thickening is nonspecific in the setting of liver cirrhosis and/or portal hypertension. MRCP images are markedly degraded by motion artifact. Within the limitations examination, no gross radiologic evidence of biliary dilatation, filling defect, or choledocholithiasis. RPTAT: [facility] .Pietro Cruz MD, Date Time Electronically viewed and signed by .Pietro Cruz MD, MD on 01/12/2017 16:17 .C/
[2017-01-12 19:20] VITALS: BP 142/65; RESP 17
[2017-01-12] MEDS: INSULIN GLARGINE [LANtus] 3 ML PEN SC SCH (20:40)
[2017-01-12] MEDS: morphine 2 MG INJ IV PRN (22:48)
[2017-01-13] MEDS: SOD CHLORIDE 0.9% 1,000 ML IV SCH ×3 (00:59→18:03)
[2017-01-13] MEDS ORDERED: ACCU-CHEK XX SCH (02:00)
[2017-01-13] MEDS: morphine 2 MG INJ IV PRN ×3 (04:16→23:16)
[2017-01-13 05:13] LABS: ADD SCAN DIFF NO
[2017-01-13 05:17] LABS: ABNORMAL IP MESSAGE 1; BASOPHILS % 0.4 % (0.0-2.0); EOSINOPHILS % 1.3 % (0.0-7.0); HEMATOCRIT 25.7 % (37.0-47.0); HEMOGLOBIN 8.3 g/dl (12.0-16.0); LYMPHOCYTES # 0.8 10^3/ul (0.8-2.9); LYMPHOCYTES % 33.9 % (15.0-51.0); MEAN CORPUSCULAR HGB CONC 32.3 g/dl (32.0-37.0); MEAN CORPUSCULAR VOLUME 92.8 fl (82.0-101.0); MONOCYTE # 0.2 10^3/ul (0.3-0.9); MONOCYTES % 8.6 % (0.0-11.0); NEUTROPHIL # 1.3 10^3/ul (1.6-7.5); NEUTROPHILS % 55.4 % (39.0-77.0); RED BLOOD COUNT 2.77 10^6/ul (4.20-5.40); RED CELL DISTRIBUTION WIDTH 19.6 % (11.5-14.5); WHITE BLOOD COUNT 2.3 10^3/ul (4.8-10.8)
[2017-01-13 05:27] LABS: PLATELET COUNT 40 10^3/UL (140-415)
[2017-01-13] MEDS: FUROSEMIDE 40 MG TAB PO SCH (05:39)
[2017-01-13] MEDS: PANTOPRAZOLE (EC) 40 MG TAB PO SCH (05:39)
[2017-01-13 05:40] VITALS: BP 125/58; PULSE 70; RESP 18
[2017-01-13 05:41] LABS: BILIRUBIN,DIRECT 0.1 mg/dl (0.00-0.20); BILIRUBIN,INDIRECT 2.8 mg/dl (0-1.1); BILIRUBIN,TOTAL 2.9 mg/dl (0.2-1.3)
[2017-01-13 05:46] LABS: MAGNESIUM 1.5 mg/dl (1.7-2.5); PHOSPHORUS 4.2 mg/dl (2.5-4.9)
[2017-01-13 06:19] LABS: CALCIUM 7.5 mg/dl (8.4-10.2); CREATININE 0.45 mg/dl (0.44-1.00); POTASSIUM 3.3 mmol/L (3.5-5.1)
[2017-01-13] MEDS: INSULIN ASPART [NOVOLOG] 3 ML PEN SC SCH ×4 (07:50→20:41)
[2017-01-13] MEDS: LACTULOSE 30ML CUP PO SCH ×3 (08:37→20:22)
[2017-01-13 08:54] VITALS: BP 133/63; RESP 18
--- NOTE | 2017-01-13 13:19 | PN ---
Date/Time of Note Date/Time of Note DATE: 01/13/17 TIME: 13:14 Assessment/Plan VTE Prophylaxis VTE Prophylaxis Intervention: SCD's Lines/Catheters IV Catheter Type (from [facility]): Peripheral IV Urinary Cath still in place: No Assessment/Plan Chief Complaint/Hosp Course ASSESSMENT AND PLAN: 1. Right flank pain: Likely secondary to portal vein thrombosis. Her biliary stent has also migrated to the colon. - May be secondary to history of hepatocellular carcinoma. -Follow-up GI recommendations, for now keep her n.p.o. follow up GI recommendation for possible ERCP - Pain control medications. -Also, we will need to weigh the risks versus benefits of trying to anticoagulate for patient's portal vein thrombosis. The concern is her rectal bleeding, presumably, lower GI bleeding, as well as her thrombocytopenia. We will need to discuss with GI team -Continue broad spectrum antibiotics for now. - Follow up UA and urine culture results. - Tylenol p.r.n. pain and fevers and Motrin for pain control, IV fluids as well. 2. History of hepatocellular carcinoma. Reinsurance Claims Analyst and technical maintenance specialist oncologist has been consulted - We will continue to monitor for now. 3. Type 2 diabetes. Last A1c 7.5. - Continue sliding scale insulin. 3. History of thrombocytopenia. Again, most likely secondary to the patient's liver disease. She has had coagulopathy in the past. - Continue to monitor for now. No signs of any bleeding. Avoid anticoagulants at this time. 4. Prior history of UTI, enterococcus-patient did complain of dysuria - follow up UA and urine culture 5. GI prophylaxis ; PPI 6. Deep venous thrombosis prophylaxis, sequential compression devices. Problems: Subjective 24 Hr Interval Summary Free Text/Dictation No acute event Patient continues to complain of having abdominal discomfort N.p.o. Exam/Review of Systems Vital Signs Vitals Vital Signs Date Time Temp Pulse Resp B/P Pulse Ox O2 Delivery O2 Flow Rate FiO2 01/13/17 08:54 98.4 73 18 133/63 96 01/13/17 05:40 Room Air Intake and Output 01/12/17 01/12/17 01/13/17 15:00 23:00 07:00 Intake Total 790 ml 920 ml Balance 790 ml 920 ml Exam General: The patient is well-developed, Not in acute distress. HEENT: Atraumatic, normocephalic. The pupils are equal and round . Neck: Supple with full range of motion. Chest: Normal expansion of the thorax during inspiration Lungs: Clear to auscultation bilaterally Heart: Normal S1-S2, Regular rhythm and rate. Abdomen: Soft , nontender, ascites, bowel sounds are present. Extremities: Normal to inspection, no edema no cyanosis Neurologic: Normal mental status,The patient is awake, alert and oriented . Results Result Diagram: 01/13/17 0440 01/13/17 0440 Results 24 hrs Laboratory Tests Test 01/12/17 14:48 01/12/17 17:55 01/12/17 20:37 01/13/17 01:43 Bedside Glucose 159 162 267 H 149 Test 01/13/17 04:40 01/13/17 08:39 01/13/17 13:01 White Blood Count 2.3 L Red Blood Count 2.77 L Hemoglobin 8.3 L Hematocrit 25.7 L Mean Corpuscular Volume 92.8 Mean Corpuscular Hemoglobin 30.0 Mean Corpuscular Hemoglobin Concent 32.3 Red Cell Distribution Width 19.6 H Platelet Count 40 L Mean Platelet Volume Neutrophils % 55.4 Lymphocytes % 33.9 Monocytes % 8.6 Eosinophils % 1.3 Basophils % 0.4 Nucleated Red Blood Cells % 0.0 Neutrophils # 1.3 L Lymphocytes # 0.8 Monocytes # 0.2 L Eosinophils # 0.0 Basophils # 0.0 Nucleated Red Blood Cells # 0.0 Sodium Level 141 Potassium Level 3.3 L Chloride Level 110 Carbon Dioxide Level 24 Anion Gap 10 Blood Urea Nitrogen 10 Creatinine 0.45 Glucose Level 113 # Calcium Level 7.5 L Phosphorus Level 4.2 Magnesium Level 1.5 L Total Bilirubin 2.9 H Direct Bilirubin 0.10 Indirect Bilirubin 2.8 H Aspartate Amino Transf (AST/SGOT) 49 H Alkaline Phosphatase 91 Bedside Glucose 126 124 Medications Medications Current Medications Lorazepam (Ativan) 0.5 mg Q6H PRN IV ANXIETY; Start 01/11/17 at 17:30 Nitroglycerin (Nitroglycerin (Sl Tab) 0.4 Mg) 1 tab Q5M PRN SL ANGINA; Start at 17:30 Furosemide (Lasix) 40 mg DAILY@06 PO Last administered on 01/13/17t 05:39; Admin Dose 40 MG; Start 01/12/17 at 06:00 Lactulose (Enulose) 10 gm TID PO Last administered on 01/13/17 08:37; Admin Dose 10 GM; Start 01/11/17 at 21:00 Pantoprazole (Protonix Tab) 40 mg DAILY@06 PO Last administered on 01/13/17 05 :39; Admin Dose 40 MG; Start 01/12/17 at 06:00 Miscellaneous Information 1 ea NOTE XX ; Start 01/11/17 at 17:30 Glucose (Glutose) 15 gm Q15M PRN PO DECREASED GLUCOSE; Start 01/11/17 at 17:30 Glucose (Glutose) 22.5 gm Q15M PRN PO DECREASED GLUCOSE; Start 01/11/17 at 17:30 Dextrose (D50w Syringe) 25 ml Q15M PRN IV DECREASED GLUCOSE; Start 01/11/17 at 17:30 Dextrose (D50w Syringe) 50 ml Q15M PRN IV DECREASED GLUCOSE; Start 01/11/17 at 17:30 Glucagon (Glucagen) 1 mg Q15M PRN IM DECREASED GLUCOSE; Start 01/11/17 at 17:30 Glucose (Glutose) 15 gm Q15M PRN BUCCAL DECREASED GLUCOSE; Start 01/11/17 at 17: 30 Eye Lubricant (Artificial Tears Oph) 2 drop Q6H PRN BOTH EYES DRY EYES; Start 01/11/17 at 19:30 Insulin Glargine (Lantus) 15 unit QHS SC Last administered on 01/12/17 20:40; Admin Dose 15 UNIT; Start 01/11/17 at 21:00 Insulin Aspart (Novolog Insulin Pen) NOVOLOG *MILD* ALGORI... Q4 SC Last administered on 01/12/17 18:03; Admin Dose 1 UNIT; Start 01/12/17 at 01:00; Status Future Hold Diagnostic Test (Pha) 1 ea 1 ea 02 XX ; Start 01/13/17 at 02:00; Status Future Hold Sodium Chloride (NS) 1,000 ml @ 70 mls/hr [id number] IV Last administered on 01/13 00:59; Admin Dose 70 MLS/HR; Start 01/12/17 at 02:30 Indomethacin (Indocin Supp) 100 mg ONCE ONCE MN ; Start 01/14/17 at 15:00; Stop 01/14/17 at 15:01 Morphine Sulfate (morphine) 2 mg Q4H PRN IV PAIN Last administered on t 04:16; Admin Dose 2 MG; Start 01/12/17 at 22:30 HANK HANSEN MD Jan 13, 2017 13:19
[2017-01-13] MEDS ORDERED: POTASSIUM CHLORIDE 20 MEQ in SOD CHLORIDE 0.9% 100 ML IVPB ONE (15:00)
[2017-01-13] MEDS ORDERED: MAGNESIUM SULFATE 2 GM/50 ML 50 ML IVPB ONE (15:00)
--- NOTE | 2017-01-13 19:00 | PN ---
Date/Time of Note Date/Time of Note DATE: 01/13/17 TIME: 18:56 Assessment/Plan VTE Prophylaxis VTE Prophylaxis Intervention: SCD's Lines/Catheters IV Catheter Type (from Nrs): Peripheral IV Urinary Cath still in place: No Assessment/Plan Assessment/Plan Assessment * Right flank abdominal pain/post migration of biliary Wallstent * Anemia Chronic vs acute * Portal vein thrombosis by CT scan * Diabetes mellitus * History of liver carcinoma * History of ERCP and Stent placement Plan * Continue present management * ERCP Wallstent placement tomorrow * Obtain KUB to assess location of migrated stent Subjective 24 Hr Interval Summary Free Text/Dictation Course reviewed with nursing staff Patient comfortable at the present time Still experiencing right upper quadrant and right flank pain MRCP poor quality no comment in location of stent We will plan replacement of biliary stent We will obtain KUB earlier looking for migrated stent position Patient has not seen stent exit with bowel movements Exam/Review of Systems Vital Signs Vitals Vital Signs Date Time Temp Pulse Resp B/P Pulse Ox O2 Delivery O2 Flow Rate FiO2 01/13/17 08:54 98.4 73 18 133/63 96 01/13/17 05:40 Room Air Intake and Output 01/12/17 01/12/17 01/13/17 15:00 23:00 07:00 Intake Total 790 ml 920 ml Balance 790 ml 920 ml Exam Constitutional: alert, obese, oriented, well developed Psych: nl mood/affect, no complaints Head: atraumatic, normocephalic Eyes: EOMI, PERRL, icteric, nl conjunctiva, nl lids ENMT: nl external ears & nose, nl lips & teeth, nl nasal mucosa & septum Neck: non-tender, supple Respiratory: clear to auscultation, normal air movement Cardiovascular: nl pulses, regular rate and rhythm Gastrointestinal: bowel sounds, distended, hepatomegaly, soft, tender ( Moderate right upper quadrant tenderness), No ascites, No rebound or guarding Musculoskeletal: nl extremities to inspection Extremities: normal pulses Skin: nl turgor, No rash or lesions Lymph: nl lymph nodes Results Result Diagram: 01/13/1743901/13/17439 Results 24 hrs Laboratory Tests Test 01/12/17 20:37 01/13/17 01:43 01/13/17 04:40 01/13/17 08:39 Bedside Glucose 267 H 149 126 White Blood Count 2.3 L Red Blood Count 2.77 L Hemoglobin 8.3 L Hematocrit 25.7 L Mean Corpuscular Volume 92.8 Mean Corpuscular Hemoglobin 30.0 Mean Corpuscular Hemoglobin Concent 32.3 Red Cell Distribution Width 19.6 H Platelet Count 40 L Mean Platelet Volume Neutrophils % 55.4 Lymphocytes % 33.9 Monocytes % 8.6 Eosinophils % 1.3 Basophils % 0.4 Nucleated Red Blood Cells % 0.0 Neutrophils # 1.3 L Lymphocytes # 0.8 Monocytes # 0.2 L Eosinophils # 0.0 Basophils # 0.0 Nucleated Red Blood Cells # 0.0 Sodium Level 141 Potassium Level 3.3 L Chloride Level 110 Carbon Dioxide Level 24 Anion Gap 10 Blood Urea Nitrogen 10 Creatinine 0.45 Glucose Level 113 # Calcium Level 7.5 L Phosphorus Level 4.2 Magnesium Level 1.5 L Total Bilirubin 2.9 H Direct Bilirubin 0.10 Indirect Bilirubin 2.8 H Aspartate Amino Transf (AST/SGOT) 49 H Alanine Aminotransferase (ALT/SGPT) 31 Alkaline Phosphatase 91 Test 01/13/17 13:01 01/13/17 17:40 Bedside Glucose 124 148 Medications Medications Current Medications Lorazepam (Ativan) 0.5 mg Q6H PRN IV ANXIETY; Start 01/11/17 at 17:30 Nitroglycerin (Nitroglycerin (Sl Tab) 0.4 Mg) 1 tab Q5M PRN SL ANGINA; Start at 17:30 Furosemide (Lasix) 40 mg DAILY@06 PO Last administered on 01/13/17 05:39; Admin Dose 40 MG; Start 01/12/17 at 06:00 Lactulose (Enulose) 10 gm TID PO Last administered on 01/13/17 13:33; Admin Dose 10 GM; Start 01/11/17 at 21:00 Pantoprazole (Protonix Tab) 40 mg DAILY@06 PO Last administered on 01/13/17 05 :39; Admin Dose 40 MG; Start 01/12/17 at 06:00 Miscellaneous Information 1 ea NOTE XX ; Start 01/11/17 at 17:30 Glucose (Glutose) 15 gm Q15M PRN PO DECREASED GLUCOSE; Start 01/11/17 at 17:30 Glucose (Glutose) 22.5 gm Q15M PRN PO DECREASED GLUCOSE; Start 01/11/17 at 17:30 Dextrose (D50w Syringe) 25 ml Q15M PRN IV DECREASED GLUCOSE; Start 01/11/17 at 17:30 Dextrose (D50w Syringe) 50 ml Q15M PRN IV DECREASED GLUCOSE; Start 01/11/17 at 17:30 Glucagon (Glucagen) 1 mg Q15M PRN IM DECREASED GLUCOSE; Start 01/11/17 at 17:30 Glucose (Glutose) 15 gm Q15M PRN BUCCAL DECREASED GLUCOSE; Start 01/11/17 at 17: 30 Eye Lubricant (Artificial Tears Oph) 2 drop Q6H PRN BOTH EYES DRY EYES; Start 01/11/17 at 19:30 Insulin Glargine (Lantus) 15 unit QHS SC Last administered on 01/12/17 20:40; Admin Dose 15 UNIT; Start 01/11/17 at 21:00 Insulin Aspart (Novolog Insulin Pen) NOVOLOG *MILD* ALGORI... Q4 SC Last administered on 01/12/17 18:03; Admin Dose 1 UNIT; Start 01/12/17 at 01:00; Status Future Hold Diagnostic Test (Pha) 1 ea 1 ea 02 XX ; Start 01/13/17 at 02:00; Status Future Hold Sodium Chloride (NS) 1,000 ml @ 70 mls/hr [id number] IV Last administered on 01/13 18:03; Admin Dose 70 MLS/HR; Start 01/12/17 at 02:30 Indomethacin (Indocin Supp) 100 mg ONCE ONCE NC ; Start 01/14/17 at 15:00; Stop 01/14/17 at 15:01 Morphine Sulfate 2 mg 2 mg Q4H PRN IV PAIN Last administered on 01/13/17 18:08 ; Admin Dose 2 MG; Start 01/12/17 at 22:30 Ciprofloxacin/ Dextrose (Cipro Ivpb) 200 ml @ 200 mls/hr Q12 IVPB ; Start 01/13 at 21:00 CHANELLE DOZIER MD Jan 13, 2017 19:00
[2017-01-13 19:58] VITALS: BP 135/65; RESP 18
[2017-01-13] MEDS: CIPROFLOXACIN 400MG/D5W 200 ML IVPB SCH (20:22)
[2017-01-13] MEDS: INSULIN GLARGINE [LANtus] 3 ML PEN SC SCH (20:24)
--- NOTE | 2017-01-13 23:26 | CONS ---
Date/Time of Note Date/Time of Note DATE: 01/13/17 TIME: 23:24 Assessment/Plan Assessment/Plan Chief Complaint/Hosp Course History of hepatocellular carcinoma. Business Director has been consulted - We will continue to monitor for now. Right flank pain: Likely secondary to portal vein thrombosis. Her biliary stent has also migrated to the colon. - May be secondary to history of hepatocellular carcinoma. -Follow-up GI recommendations, for now keep her n.p.o. follow up GI recommendation for possible ERCP - Pain control medications. -Also, we will need to weigh the risks versus benefits of trying to anticoagulate for patient's portal vein thrombosis. The concern is her rectal bleeding, presumably, lower GI bleeding, as well as her thrombocytopenia. We will need to discuss with GI team -Continue broad spectrum antibiotics for now. - Follow up UA and urine culture results. - Tylenol p.r.n. pain and fevers and Motrin for pain control, IV fluids as well. Type 2 diabetes. Last A1c 7.5. - Continue sliding scale insulin. History of thrombocytopenia. Again, most likely secondary to the patient's liver disease. She has had coagulopathy in the past. - Continue to monitor for now. No signs of any bleeding. Avoid anticoagulants at this time. Prior history of UTI, enterococcus-patient did complain of dysuria - follow up UA and urine culture GI prophylaxis ; PPI Deep venous thrombosis prophylaxis, sequential compression devices. Problems: Consultation Date/Type/Reason Admit Date/Time Jan 11, 2017 at 15:55 Date of Consultation: Jan 13, 2017 Type of Consultation: [facility] Reason for Consultation [facility] Referring Provider: HANK HANSEN MD Hx of Present Illness 57 year old female with past medical history of hepatocellular carcinoma, diabetes,history of multiple ERCP (09/2016) stent placements,anemia and urinary tract infection presented in the emergency room complaining right flank pain and on and off hematochezia.Present condition apparently started 5 days as vague flanked pain getting worse 1 day prior to admission with associated vomiting.She denies any hematemesis,fever ,shortness of breath nor chest pain.She also complains of hematochezia on and off with last episode 3 days ago, denies melena .Emergency room workup revealed WBC 2.7,Hemoglobin 8.9 ,hematocrit 26.9,PT 23.9, AST 41 ALT [address] scan abdomen 1. The liver is cirrhotic , with signs of portal hypertension including splenomegaly, mild ascites, and large perisplenic varices. . 2.6 cm hypoenhancing lesion is seen posteriorly in the hepatic dome, not definitely present on prior noncontrast CT - hepatocellular carcinoma cannot be excluded in the setting of cirrhosis. Multiphase contrast enhanced MRI or CT of the liver is recommended for further evaluation.. There is complete thrombosis and early cavernous transformation of the main portal vein. Cholelithiasis is seen without evidence for cholecystitis. Previously seen common bile duct stent has become dislodged, and is now located within the terminal ileum and cecum. No biliary dilatation is identified. Presently on and off right flank pain no hematochezia,. Constitutional: improved, no complaints Eyes: no complaints ENT: no complaints Respiratory: no complaints Cardiovascular: no complaints Gastrointestinal: blood, pain Genitourinary: no complaints Musculoskeletal: no complaints Skin: no complaints Neurologic: no complaints Endocrine: no complaints Lymphatic: no complaints Psychological: nl mood/affect, no complaints Immunologic: no complaints Initial Consultation Hx Past Medical History Medical History: diabetes, gallstones, other (hepatocellular ca) Past Surgical History Past Surgical Hx: endoscopy (ercp) Family History Significant Family History: no pertinent family hx Social History Alcohol Use: none Smoking Status: Never smoker Drug Use: none Constitutional: improved, no complaints Eyes: no complaints ENT: no complaints Respiratory: no complaints Cardiovascular: no complaints Gastrointestinal: blood, pain Genitourinary: no complaints Musculoskeletal: no complaints Skin: no complaints Neurologic: no complaints Endocrine: no complaints Lymphatic: no complaints Psychological: nl mood/affect, no complaints Immunologic: no complaints Past Medical History Medical History: diabetes, gallstones, other (hepatocellular ca) Past Surgical History Past Surgical Hx: endoscopy (ercp) Social History Alcohol Use: none Smoking Status: Never smoker Drug Use: none Exam/Review of Systems Vital Signs Vitals Vital Signs Date Time Temp Pulse Resp B/P Pulse Ox O2 Delivery O2 Flow Rate FiO2 01/13/17 19:58 98.0 61 18 135/65 100 01/13/17 05:40 Room Air Intake and Output 01/12/17 01/12/17 01/13/17 15:00 23:00 07:00 Intake Total 790 ml 920 ml Balance 790 ml 920 ml Exam Constitutional: alert, obese, oriented, well developed Psych: nl mood/affect, no complaints Head: atraumatic, normocephalic Eyes: EOMI, PERRL, icteric, nl conjunctiva, nl lids ENMT: nl external ears & nose, nl lips & teeth, nl nasal mucosa & septum Neck: non-tender, supple Respiratory: clear to auscultation, normal air movement Cardiovascular: nl pulses, regular rate and rhythm Gastrointestinal: bowel sounds, distended, hepatomegaly, soft, tender ( Moderate right upper quadrant tenderness), No ascites, No rebound or guarding Musculoskeletal: nl extremities to inspection Extremities: normal pulses Skin: nl turgor, No rash or lesions Lymph: nl lymph nodes Results Result Diagram: 01/13/17 0440 01/13/17 0440 Results 24 hrs Laboratory Tests Test 01/13/17 01:43 01/13/17 04:40 01/13/17 08:39 01/13/17 13:01 Bedside Glucose 149 126 124 White Blood Count 2.3 L Red Blood Count 2.77 L Hemoglobin 8.3 L Hematocrit 25.7 L Mean Corpuscular Volume 92.8 Mean Corpuscular Hemoglobin 30.0 Mean Corpuscular Hemoglobin Concent 32.3 Red Cell Distribution Width 19.6 H Platelet Count 40 L Mean Platelet Volume Neutrophils % 55.4 Lymphocytes % 33.9 Monocytes % 8.6 Eosinophils % 1.3 Basophils % 0.4 Nucleated Red Blood Cells % 0.0 Neutrophils # 1.3 L Lymphocytes # 0.8 Monocytes # 0.2 L Eosinophils # 0.0 Basophils # 0.0 Nucleated Red Blood Cells # 0.0 Sodium Level 141 Potassium Level 3.3 L Chloride Level 110 Carbon Dioxide Level 24 Anion Gap 10 Blood Urea Nitrogen 10 Creatinine 0.45 Glucose Level 113 # Calcium Level 7.5 L Phosphorus Level 4.2 Magnesium Level 1.5 L Total Bilirubin 2.9 H Direct Bilirubin 0.10 Indirect Bilirubin 2.8 H Aspartate Amino Transf (AST/SGOT) 49 H Alanine Aminotransferase (ALT/SGPT) 31 Alkaline Phosphatase 91 Test 01/13/17 17:40 01/13/17 20:21 Bedside Glucose 148 124 Medications Medications Current Medications Lorazepam (Ativan) 0.5 mg Q6H PRN IV ANXIETY; Start 01/11/17 at 17:30 Nitroglycerin (Nitroglycerin (Sl Tab) 0.4 Mg) 1 tab Q5M PRN SL ANGINA; Start at 17:30 Furosemide (Lasix) 40 mg DAILY@06 PO Last administered on 01/13/17 05:39; Admin Dose 40 MG; Start 01/12/17 at 06:00 Lactulose (Enulose) 10 gm TID PO Last administered on 01/13/17 20:22; Admin Dose 10 GM; Start 01/11/17 at 21:00 Pantoprazole (Protonix Tab) 40 mg DAILY@06 PO Last administered on 01/13/17 05 :39; Admin Dose 40 MG; Start 01/12/17 at 06:00 Miscellaneous Information 1 ea NOTE XX ; Start 01/11/17 at 17:30 Glucose (Glutose) 15 gm Q15M PRN PO DECREASED GLUCOSE; Start 01/11/17 at 17:30 Glucose (Glutose) 22.5 gm Q15M PRN PO DECREASED GLUCOSE; Start 01/11/17 at 17:30 Dextrose (D50w Syringe) 25 ml Q15M PRN IV DECREASED GLUCOSE; Start 01/11/17 at 17:30 Dextrose (D50w Syringe) 50 ml Q15M PRN IV DECREASED GLUCOSE; Start 01/11/17 at 17:30 Glucagon (Glucagen) 1 mg Q15M PRN IM DECREASED GLUCOSE; Start 01/11/17 at 17:30 Glucose (Glutose) 15 gm Q15M PRN BUCCAL DECREASED GLUCOSE; Start 01/11/17 at 17: 30 Eye Lubricant (Artificial Tears Oph) 2 drop Q6H PRN BOTH EYES DRY EYES; Start 01/11/17 at 19:30 Insulin Glargine (Lantus) 15 unit QHS SC Last administered on 01/13/17 20:24; Admin Dose 15 UNIT; Start 01/11/17 at 21:00 Insulin Aspart (Novolog Insulin Pen) NOVOLOG *MILD* ALGORI... Q4 SC Last administered on 01/12/17 18:03; Admin Dose 1 UNIT; Start 01/12/17 at 01:00; Status Future Hold Diagnostic Test (Pha) 1 ea 1 ea 02 XX ; Start 01/13/17 at 02:00; Status Future Hold Sodium Chloride (NS) 1,000 ml @ 70 mls/hr [id number] IV Last administered on 01/13 18:03; Admin Dose 70 MLS/HR; Start 01/12/17 at 02:30 Indomethacin (Indocin Supp) 100 mg ONCE ONCE [place] ; Start 01/14/17 at 15:00; Stop 01/14/17 at 15:01 Morphine Sulfate 2 mg 2 mg Q4H PRN IV PAIN Last administered on 01/13/17 23:16 ; Admin Dose 2 MG; Start 01/12/17 at 22:30 Ciprofloxacin/ Dextrose (Cipro Ivpb) 200 ml @ 200 mls/hr Q12 IVPB Last administered on 01/13/17 20:22; Admin Dose 200 MLS/HR; Start 01/13/17 at 21:00 Procedures Procedures [place] [address] Radiology Main Line: [phone] DIAGNOSTIC IMAGING REPORT Patient: ELI MUNSON : 1960 Age: 57 Sex: F MR #: [id number] DOS: 01/12/17 1153 Ordering MD: CHANELLE DOZIER MD Location: [facility] [place] Room/Bed: [facility] PROCEDURE: MR Abdomen without contrast and MRCP. CLINICAL INDICATION: Liver lesion TECHNIQUE: MRI of the abdomen in conjunction with MRCP was performed on a 3 [employer]ania magnet COMPARISON: CT, 01/11/2017. FINDINGS: There is a shrunken nodular cirrhotic liver with trace perihepatic ascites. There is subtle ill-defined mildly T2 hyperintense lesion corresponding to the hypovascular lesion suggested on the prior CT. The biliary system is nondilated. Evaluation of the portal vein is obviated without intravenous contrast. Large perisplenic varices are noted. Spleen is enlarged measuring 14.2 cm in craniocaudal length. Gallbladder is distended with small stones. Gallbladder wall thickening is nonspecific in the setting of liver cirrhosis and/or portal hypertension. There is mild anasarca. IMPRESSION: Limited examination due to the absence of intravenous contrast and significant respiratory motion artifact. The lesion identified on the prior CT in the right lobe of the liver cannot be evaluated in the present evaluation without intravenous contrast. Recommend multiphasic contrast enhanced CT of the liver with and without contrast for further characterization. Portal vein thrombosis that is evident on the recent CT cannot be assessed without intravenous contrast in the present evaluation. Liver cirrhosis with stigmata of portal hypertension including trace perihepatic ascites, portosystemic collateral vessels, and splenomegaly. Cholelithiasis. Gallbladder wall thickening is nonspecific in the setting of liver cirrhosis and/or portal hypertension. MRCP images are markedly degraded by motion artifact. Within the limitations examination, no gross radiologic evidence of biliary dilatation, filling defect , or choledocholithiasis. RPTAT: [facility] .Pietro Cruz MD, MD Date Time Electronically viewed and signed by .Pietro Cruz MD, on 01/12/2017 16:17 .C/ CC: CHANELLE DOZIER MD, VERA M MD Jan 13, 2017 23:25
[2017-01-14] VITALS (21 sets, daily range): BP systolic 102–147; BP diastolic 51–76; PULSE 61–82; RESP 15–21
[2017-01-14] MEDS: PANTOPRAZOLE (EC) 40 MG TAB PO SCH (05:59)
[2017-01-14] MEDS: FUROSEMIDE 40 MG TAB PO SCH (05:59)
[2017-01-14] MEDS: morphine 2 MG INJ IV PRN ×4 (05:59→22:41)
[2017-01-14] MEDS ORDERED: EPHEDrine SULFATE 50 MG/5 ML SYG ONE (07:00)
[2017-01-14] MEDS: INSULIN ASPART [NOVOLOG] 3 ML PEN SC SCH ×4 (07:50→21:00)
[2017-01-14 08:39] LABS: ADD SCAN DIFF NO
[2017-01-14] MEDS: CIPROFLOXACIN 400MG/D5W 200 ML IVPB SCH ×2 (08:46→21:45)
[2017-01-14 08:47] LABS: ABNORMAL IP MESSAGE 1; BASOPHILS % 0.7 % (0.0-2.0); EOSINOPHILS % 1.1 % (0.0-7.0); HEMOGLOBIN 8.9 g/dl (12.0-16.0); LYMPHOCYTES # 0.8 10^3/ul (0.8-2.9); LYMPHOCYTES % 27.8 % (15.0-51.0); MEAN CORPUSCULAR HEMOGLOBIN 29.8 pg (29.0-33.0); MEAN CORPUSCULAR HGB CONC 31.8 g/dl (32.0-37.0); MEAN CORPUSCULAR VOLUME 93.6 fl (82.0-101.0); MEAN PLATELET VOLUME 12.4 fl (7.4-10.4); MONOCYTE # 0.3 10^3/ul (0.3-0.9); MONOCYTES % 10.4 % (0.0-11.0); NEUTROPHIL # 1.6 10^3/ul (1.6-7.5); NEUTROPHILS % 59.3 % (39.0-77.0); RED BLOOD COUNT 2.99 10^6/ul (4.20-5.40); RED CELL DISTRIBUTION WIDTH 19.3 % (11.5-14.5); WHITE BLOOD COUNT 2.7 10^3/ul (4.8-10.8)
[2017-01-14] MEDS: LACTULOSE 30ML CUP PO SCH ×3 (08:47→22:09)
[2017-01-14 09:01] LABS: PLATELET COUNT 46 10^3/UL (140-415)
[2017-01-14 09:16] LABS: CALCIUM 7.3 mg/dl (8.4-10.2); CREATININE 0.48 mg/dl (0.44-1.00); POTASSIUM 3.3 mmol/L (3.5-5.1)
--- NOTE | 2017-01-14 09:58 | CONS ---
Date/Time of Note Date/Time of Note DATE: 01/14/17 TIME: 09:58 Assessment/Plan Assessment/Plan Chief Complaint/Hosp Course History of hepatocellular carcinoma. Senior Director Marketing has been consulted - We will continue to monitor for now. Right flank pain: Likely secondary to portal vein thrombosis. Her biliary stent has also migrated to the colon. - May be secondary to history of hepatocellular carcinoma. -Follow-up GI recommendations, for now keep her n.p.o. follow up GI recommendation for possible ERCP - Pain control medications. -Also, we will need to weigh the risks versus benefits of trying to anticoagulate for patient's portal vein thrombosis. The concern is her rectal bleeding, presumably, lower GI bleeding, as well as her thrombocytopenia. We will need to discuss with GI team -Continue broad spectrum antibiotics for now. - Follow up UA and urine culture results. - Tylenol p.r.n. pain and fevers and Motrin for pain control, IV fluids as well. Type 2 diabetes. Last A1c 7.5. - Continue sliding scale insulin. History of thrombocytopenia. Again, most likely secondary to the patient's liver disease. She has had coagulopathy in the past. - Continue to monitor for now. No signs of any bleeding. Avoid anticoagulants at this time. Prior history of UTI, enterococcus-patient did complain of dysuria - follow up UA and urine culture GI prophylaxis ; PPI Deep venous thrombosis prophylaxis, sequential compression devices. Problems: Consultation Date/Type/Reason Admit Date/Time Jan 11, 2017 at 15:55 Initial Consult Date 01/13/17 Type of Consultation: [facility] Referring Provider: HANK HANSEN MD 24 HR Interval Summary Free Text/Dictation ALL NOTED Exam/Review of Systems Vital Signs Vitals Vital Signs Date Time Temp Pulse Resp B/P Pulse Ox O2 Delivery O2 Flow Rate FiO2 01/14/17 07:54 97.5 79 19 138/55 100 01/14/17 06:06 Room Air Intake and Output 01/13/17 01/13/17 01/14/17 15:00 23:00 07:00 Intake Total 2120 ml 1060 ml Balance 2120 ml 1060 ml Exam Constitutional: alert, obese, oriented, well developed Psych: nl mood/affect, no complaints Head: atraumatic, normocephalic Eyes: EOMI, PERRL, icteric, nl conjunctiva, nl lids ENMT: nl external ears & nose, nl lips & teeth, nl nasal mucosa & septum Neck: non-tender, supple Respiratory: clear to auscultation, normal air movement Cardiovascular: nl pulses, regular rate and rhythm Gastrointestinal: bowel sounds, distended, hepatomegaly, soft, tender ( Moderate right upper quadrant tenderness), No ascites, No rebound or guarding Musculoskeletal: nl extremities to inspection Extremities: normal pulses Skin: nl turgor, No rash or lesions Lymph: nl lymph nodes Results Result Diagram: 01/14/1704 01/14/17 0804 Results 24 hrs Laboratory Tests Test 01/13/17 13:01 01/13/17 17:40 01/13/17 20:21 01/14/17 08:04 Bedside Glucose 124 148 124 White Blood Count 2.7 L Red Blood Count 2.99 L Hemoglobin 8.9 L Hematocrit 28.0 L Mean Corpuscular Volume 93.6 Mean Corpuscular Hemoglobin 29.8 Mean Corpuscular Hemoglobin Concent 31.8 L Red Cell Distribution Width 19.3 H Platelet Count 46 L Mean Platelet Volume 12.4 H Neutrophils % 59.3 Lymphocytes % 27.8 Monocytes % 10.4 Eosinophils % 1.1 Basophils % 0.7 Nucleated Red Blood Cells % 0.0 Neutrophils # 1.6 Lymphocytes # 0.8 Monocytes # 0.3 Eosinophils # 0.0 Basophils # 0.0 Nucleated Red Blood Cells # 0.0 Sodium Level 132 L Potassium Level 3.3 L Chloride Level 107 Carbon Dioxide Level 23 Anion Gap 5 L Blood Urea Nitrogen 7 Creatinine 0.48 Glucose Level 96 Calcium Level 7.3 L Test 01/14/17 08:41 Bedside Glucose 104 Medications Medications Current Medications Lorazepam (Ativan) 0.5 mg Q6H PRN IV ANXIETY; Start 01/11/17 at 17:30 Nitroglycerin (Nitroglycerin (Sl Tab) 0.4 Mg) 1 tab Q5M PRN SL ANGINA; Start at 17:30 Furosemide (Lasix) 40 mg DAILY@06 PO Last administered on 01/14/17 05:59; Admin Dose 40 MG; Start 01/12/17 at 06:00 Lactulose (Enulose) 10 gm TID PO Last administered on 01/14/17 08:47; Admin Dose 10 GM; Start 01/11/17 at 21:00 Pantoprazole (Protonix Tab) 40 mg DAILY@06 PO Last administered on 01/14/17 05 :59; Admin Dose 40 MG; Start 01/12/17 at 06:00 Miscellaneous Information 1 ea NOTE XX ; Start 01/11/17 at 17:30 Glucose (Glutose) 15 gm Q15M PRN PO DECREASED GLUCOSE; Start 01/11/17 at 17:30 Glucose (Glutose) 22.5 gm Q15M PRN PO DECREASED GLUCOSE; Start 01/11/17 at 17:30 Dextrose (D50w Syringe) 25 ml Q15M PRN IV DECREASED GLUCOSE; Start 01/11/17 at 17:30 Dextrose (D50w Syringe) 50 ml Q15M PRN IV DECREASED GLUCOSE; Start 01/11/17 at 17:30 Glucagon (Glucagen) 1 mg Q15M PRN IM DECREASED GLUCOSE; Start 01/11/17 at 17:30 Glucose (Glutose) 15 gm Q15M PRN BUCCAL DECREASED GLUCOSE; Start 01/11/17 at 17: 30 Eye Lubricant (Artificial Tears Oph) 2 drop Q6H PRN BOTH EYES DRY EYES; Start 01/11/17 at 19:30 Insulin Glargine (Lantus) 15 unit QHS SC Last administered on 01/13/17 20:24; Admin Dose 15 UNIT; Start 01/11/17 at 21:00 Insulin Aspart (Novolog Insulin Pen) NOVOLOG *MILD* ALGORI... Q4 SC Last administered on 01/12/17 18:03; Admin Dose 1 UNIT; Start 01/12/17 at 01:00; Status Future Hold Diagnostic Test (Pha) 1 ea 1 ea 02 XX ; Start 01/13/17 at 02:00; Status Future Hold Sodium Chloride (NS) 1,000 ml @ 70 mls/hr [id number] IV Last administered on 01/13 18:03; Admin Dose 70 MLS/HR; Start 01/12/17 at 02:30 Indomethacin (Indocin Supp) 100 mg ONCE ONCE [place] ; Start 01/14/17 at 15:00; Stop 01/14/17 at 15:01 Morphine Sulfate 2 mg 2 mg Q4H PRN IV PAIN Last administered on 01/14/17 05:59 ; Admin Dose 2 MG; Start 01/12/17 at 22:30 Ciprofloxacin/ Dextrose (Cipro Ivpb) 200 ml @ 200 mls/hr Q12 IVPB Last administered on 01/14/17t 08:46; Admin Dose 200 MLS/HR; Start 01/13/17 at 21:00 ROBYN CANTU MD Jan 14, 2017 09:58
--- NOTE | 2017-01-14 12:40 | PN ---
Date/Time of Note Date/Time of Note DATE: 01/14/17 TIME: 12:38 Assessment/Plan VTE Prophylaxis VTE Prophylaxis Intervention: SCD's Lines/Catheters [facility]from [facility]): Peripheral IV Urinary Cath still in place: No Assessment/Plan Chief Complaint/Hosp Course ASSESSMENT AND PLAN: 1. Right flank pain: Likely secondary to portal vein thrombosis. Her biliary stent has also migrated to the colon. - May be secondary to history of hepatocellular carcinoma. -Follow-up GI recommendations, n.p.o. plan for ERCP today - Pain control medications. -Also, we will need to weigh the risks versus benefits of trying to anticoagulate for patient's portal vein thrombosis. The concern is her rectal bleeding, presumably, lower GI bleeding, as well as her thrombocytopenia. We will need to discuss with GI team -Continue broad spectrum antibiotics for now. - Follow up UA and urine culture results. - Tylenol p.r.n. pain and fevers and Motrin for pain control, IV fluids as well. -Vascular surgeon has been consulted regarding portal vein thrombosis 2. History of hepatocellular carcinoma. Machine Operator Picker and sybase developer oncologist has been consulted - We will continue to monitor for now. 3. Type 2 diabetes. Last A1c 7.5. - Continue sliding scale insulin. 3. History of thrombocytopenia. Again, most likely secondary to the patient's liver disease. She has had coagulopathy in the past. - Continue to monitor for now. No signs of any bleeding. Avoid anticoagulants at this time. 4. Prior history of UTI, enterococcus-patient did complain of dysuria - follow up UA and urine culture 5. GI prophylaxis ; PPI 6. Deep venous thrombosis prophylaxis, sequential compression devices. Problems: Subjective 24 Hr Interval Summary Free Text/Dictation Patient continues to complain of having moderate abdominal discomfort N.p.o. for upcoming procedure/ERCP Denies of any chest pain or shortness of breath Exam/Review of Systems Vital Signs Vitals Vital Signs Date Time Temp Pulse Resp B/P Pulse Ox O2 Delivery O2 Flow Rate FiO2 01/14/17 07:54 97.5 79 19 138/55 100 01/14/17 06:06 Room Air Intake and Output 01/13/17 01/13/17 01/14/17 15:00 23:00 07:00 Intake Total 2120 ml 1060 ml Balance 2120 ml 1060 ml Exam General: The patient is well-developed, Not in acute distress. HEENT: Atraumatic, normocephalic. The pupils are equal and round . Neck: Supple. Chest: Normal Lungs: Clear to auscultation bilaterally Heart: Normal S1-S2, Regular rhythm and rate. Abdomen: Soft , minimal tenderness in mid epigastric region, nondistended , bowel sounds are present. Extremities: Normal to inspection, no edema no cyanosis Neurologic: Normal mental status,The patient is awake, alert and oriented . Results Result Diagram: 01/14/17 0804 01/14/17 0804 Results 24 hrs Laboratory Tests Test 01/13/17 13:01 01/13/17 17:40 01/13/17 20:21 01/14/17 08:04 Bedside Glucose 124 148 124 White Blood Count 2.7 L Red Blood Count 2.99 L Hemoglobin 8.9 L Hematocrit 28.0 L Mean Corpuscular Volume 93.6 Mean Corpuscular Hemoglobin 29.8 Mean Corpuscular Hemoglobin Concent 31.8 L Red Cell Distribution Width 19.3 H Platelet Count 46 L Mean Platelet Volume 12.4 H Neutrophils % 59.3 Lymphocytes % 27.8 Monocytes % 10.4 Eosinophils % 1.1 Basophils % 0.7 Nucleated Red Blood Cells % 0.0 Neutrophils # 1.6 Lymphocytes # 0.8 Monocytes # 0.3 Eosinophils # 0.0 Basophils # 0.0 Nucleated Red Blood Cells # 0.0 Sodium Level 132 L Potassium Level 3.3 L Chloride Level 107 Carbon Dioxide Level 23 Anion Gap 5 L Blood Urea Nitrogen 7 Creatinine 0.48 Glucose Level 96 Calcium Level 7.3 L Test 01/14/17 08:41 01/14/17 12:30 Bedside Glucose 104 127 Medications Medications Current Medications Lorazepam (Ativan) 0.5 mg Q6H PRN IV ANXIETY; Start 01/11/17 at 17:30 Nitroglycerin (Nitroglycerin (Sl Tab) 0.4 Mg) 1 tab Q5M PRN SL ANGINA; Start at 17:30 Furosemide (Lasix) 40 mg DAILY@06 PO Last administered on 01/14/17 05:59; Admin Dose 40 MG; Start 01/12/17 at 06:00 Lactulose (Enulose) 10 gm TID PO Last administered on 01/14/17 08:47; Admin Dose 10 GM; Start 01/11/17 at 21:00 Pantoprazole (Protonix Tab) 40 mg DAILY@06 PO Last administered on 01/14/17 05 :59; Admin Dose 40 MG; Start 01/12/17 at 06:00 Miscellaneous Information 1 ea NOTE XX ; Start 01/11/17 at 17:30 Glucose (Glutose) 15 gm Q15M PRN PO DECREASED GLUCOSE; Start 01/11/17 at 17:30 Glucose (Glutose) 22.5 gm Q15M PRN PO DECREASED GLUCOSE; Start 01/11/17 at 17:30 Dextrose (D50w Syringe) 25 ml Q15M PRN IV DECREASED GLUCOSE; Start 01/11/17 at 17:30 Dextrose (D50w Syringe) 50 ml Q15M PRN IV DECREASED GLUCOSE; Start 01/11/17 at 17:30 Glucagon (Glucagen) 1 mg Q15M PRN IM DECREASED GLUCOSE; Start 01/11/17 at 17:30 Glucose (Glutose) 15 gm Q15M PRN BUCCAL DECREASED GLUCOSE; Start 01/11/17 at 17: 30 Eye Lubricant (Artificial Tears Oph) 2 drop Q6H PRN BOTH EYES DRY EYES; Start 01/11/17 at 19:30 Insulin Glargine (Lantus) 15 unit QHS SC Last administered on 01/13/17 20:24; Admin Dose 15 UNIT; Start 01/11/17 at 21:00 Insulin Aspart (Novolog Insulin Pen) NOVOLOG *MILD* ALGORI... Q4 SC Last administered on 01/12/17 18:03; Admin Dose 1 UNIT; Start 01/12/17 at 01:00; Status Future Hold Diagnostic Test (Pha) 1 ea 1 ea 02 XX ; Start 01/13/17 at 02:00; Status Future Hold Sodium Chloride (NS) 1,000 ml @ 70 mls/hr [id number] IV Last administered on 01/13 18:03; Admin Dose 70 MLS/HR; Start 01/12/17 at 02:30 Indomethacin (Indocin Supp) 100 mg ONCE ONCE [place] ; Start 01/14/17 at 15:00; Stop 01/14/17 at 15:01 Morphine Sulfate 2 mg 2 mg Q4H PRN IV PAIN Last administered on 01/14/17 12:33 ; Admin Dose 2 MG; Start 01/12/17 at 22:30 Ciprofloxacin/ Dextrose (Cipro Ivpb) 200 ml @ 200 mls/hr Q12 IVPB Last administered on 01/14/17t 08:46; Admin Dose 200 MLS/HR; Start 01/13/17 at 21:00 HANK HANSEN MD Jan 14, 2017 12:40
[2017-01-14] MEDS ORDERED: POTASSIUM CHLORIDE 20 MEQ in SOD CHLORIDE 0.9% 100 ML IVPB ONE (13:30)
[2017-01-14] MEDS: SOD CHLORIDE 0.9% 1,000 ML IV SCH (13:54)
[2017-01-14] MEDS ORDERED: INDOMETHACIN 50 MG SUPP PR ONE (15:00)
[2017-01-14 17:07] LABS: INR 2.1; PROTIME 23.8 Sec (12.2-14.2); PT RATIO 1.9
[2017-01-14 17:08] LABS: PARTIAL THROMBOPLASTIN TIME 45.7 Sec (25.0-35.0)
--- NOTE | 2017-01-14 19:20 | RADRPT ---
PROCEDURE: XR Abdomen. CLINICAL INDICATION: Dislodged biliary stent. TECHNIQUE: 2 frontal views of the abdomen. COMPARISON: CT abdomen pelvis dated 01/11 1017. FINDINGS: The bowel gas pattern is normal. There is no evidence of obstruction. Gallstones. Biliary stent has migrated to the right lower quadrant, and once previously seen at the ileocecal junction CT examina tion dated 01/11/2017. IMPRESSION: 1. Gallstones. 2. Biliary stent is in right lower quadrant, and both previously seen at the ileocecal junction on CT examination dated 01/11/2017. 3. Consider follow-up CT examination. RPTAT: UU Physician Figueroa Date Time Electronically viewed and signed by Physician Figueroa on 01/14/2017 19:19 RS/
[2017-01-14] MEDS ORDERED: PROPOFOL 20 ML ONE (19:46)
[2017-01-14] MEDS ORDERED: SUCCINYLCHOLINE CHLORIDE 100 MG/5 ML SYG IV ONE (19:46)
[2017-01-14] MEDS ORDERED: LIDOCAINE 2% (SDV) 5 ML INJ ONE (19:46)
[2017-01-14] MEDS ORDERED: GLYCOPYRROLATE 0.4 MG INJ ONE (19:46)
[2017-01-14] MEDS ORDERED: ROCURONIUM 50 MG INJ ONE (19:46)
[2017-01-14] MEDS ORDERED: NEOSTIGMINE 3 MG/3 ML SYRINGE ONE (19:46)
[2017-01-14] MEDS ORDERED: IOHEXOL 300MG/ML 30 ML BTL ONE (19:49)
[2017-01-14] MEDS ORDERED: CEFAZOLIN 1 GM INJ ONE (19:58)
--- NOTE | 2017-01-14 20:19 | OPR ---
Date/Time of Note Date/Time of Note DATE: 01/14/17 TIME: 20:15 Operative Report Preoperative Diagnosis * Displaced biliary stent * History of hepatocellular carcinoma * History of biliary stricture Postoperative Diagnosis Impression: * No evidence of significant obstruction requiring stenting at this time * Dilated biliary tree with adequate drainage Plan: * Observation * Monitor liver function tests * Advance diet as tolerated Operation/Procedure Performed * ERCP Surgeon: CHANELLE DOZIER MD Anesthesia: general Estimated Blood Loss: none Specimens * None Grafts/Implants * Nonapplicable Complications: None CHANELLE DOZIER MD Jan 14, 2017 20:19
--- NOTE | 2017-01-14 20:24 | HPN ---
Date/Time of Note Date/Time of Note DATE: 01/14/17 TIME: 19:24 Interval H&P Admission Note Pt. seen H&P reviewed: No system changes CHANELLE DOZIER MD Jan 14, 2017 20:24
[2017-01-14] MEDS ORDERED: DIPHENHYDRAMINE 50 MG INJ IV PRN (20:30)
[2017-01-14] MEDS ORDERED: MEPERIDINE 25 MG INJ IV PRN (20:30)
[2017-01-14] MEDS ORDERED: morphine (1 MG/ML) 10ML SYRINGE IV PRN ×3 (20:30)
[2017-01-14] MEDS ORDERED: ONDANSETRON 4 MG INJ IV PRN (20:30)
[2017-01-14] MEDS ORDERED: METOCLOPRAMIDE 10 MG INJ IV PRN (20:30)
[2017-01-14] MEDS ORDERED: OXYCODONE/ACETAMINOPHEN (5/325) TAB PO PRN ×2 (20:30)
[2017-01-14] MEDS ORDERED: FENTAnyl 50 MCG/ML VIAL IV PRN ×3 (20:30)
[2017-01-14] MEDS ORDERED: MIDAZOLAM 1 MG/ML 2 ML INJ IV PRN (20:30)
[2017-01-14] MEDS: INSULIN GLARGINE [LANtus] 3 ML PEN SC SCH (21:00)
[2017-01-15 00:20] VITALS: BP 125/56; PULSE 79; RESP 16
[2017-01-15] MEDS: SOD CHLORIDE 0.9% 1,000 ML IV SCH ×2 (02:00→15:22)
[2017-01-15] MEDS: morphine 2 MG INJ IV PRN ×3 (05:21→20:23)
[2017-01-15] MEDS: PANTOPRAZOLE (EC) 40 MG TAB PO SCH (05:21)
[2017-01-15] MEDS: FUROSEMIDE 40 MG TAB PO SCH (05:22)
[2017-01-15 05:31] LABS: ADD SCAN DIFF NO
[2017-01-15 05:39] LABS: ABNORMAL IP MESSAGE 1; EOSINOPHILS % 0.4 % (0.0-7.0); HEMATOCRIT 25.4 % (37.0-47.0); HEMOGLOBIN 8.2 g/dl (12.0-16.0); LYMPHOCYTES # 0.5 10^3/ul (0.8-2.9); LYMPHOCYTES % 17.4 % (15.0-51.0); MEAN CORPUSCULAR HEMOGLOBIN 30.8 pg (29.0-33.0); MEAN CORPUSCULAR HGB CONC 32.3 g/dl (32.0-37.0); MEAN CORPUSCULAR VOLUME 95.5 fl (82.0-101.0); MEAN PLATELET VOLUME 12.3 fl (7.4-10.4); MONOCYTE # 0.2 10^3/ul (0.3-0.9); MONOCYTES % 6.8 % (0.0-11.0); NEUTROPHILS % 74.6 % (39.0-77.0); PLATELET COUNT 35 10^3/UL (140-415); RED BLOOD COUNT 2.66 10^6/ul (4.20-5.40); WHITE BLOOD COUNT 2.6 10^3/ul (4.8-10.8)
[2017-01-15 06:17] LABS: CALCIUM 7.1 mg/dl (8.4-10.2); CREATININE 0.55 mg/dl (0.44-1.00); POTASSIUM 3.8 mmol/L (3.5-5.1)
[2017-01-15 07:38] VITALS: BP 124/59; RESP 18
[2017-01-15] MEDS: INSULIN ASPART [NOVOLOG] 3 ML PEN SC SCH ×4 (07:50→20:31)
--- NOTE | 2017-01-15 09:03 | RADRPT ---
PROCEDURE: X-ray fluoroscopy guidance CLINICAL INDICATION: Abdominal pain, ERCP, fluoroscopic guidance TECHNIQUE: Fluoroscopic guidance was utilized for an intraoperative procedure. COMPARISON: None available FINDINGS: Fluoroscopic guidance was utilized for and intraoperative procedure. 177 seconds of fluoroscopy time was utilized for the procedure. 4 x-ray images were obtained during the procedure in progress. No g ross filling defects are seen in the common bile duct. IMPRESSION: X-ray fluoroscopic guidance utilized for intraoperative procedure. No gross filling defects in the common bile duct. Please see procedure note for details. RPTAT: AA .Chris Atkinson MD, Date Time Electronically viewed and signed by .Chris Atkinson MD, on 01/15/2017 09:02 .P/
[2017-01-15] MEDS: LACTULOSE 30ML CUP PO SCH ×3 (09:36→20:22)
[2017-01-15] MEDS: CIPROFLOXACIN 400MG/D5W 200 ML IVPB SCH ×2 (09:36→20:22)
[2017-01-15] MEDS ORDERED: LORAZEPAM 0.5 MG TAB PO PRN (12:00)
--- NOTE | 2017-01-15 13:35 | PN ---
Date/Time of Note Date/Time of Note DATE: 01/15/17 TIME: 13:30 Assessment/Plan VTE Prophylaxis VTE Prophylaxis Intervention: SCD's Lines/Catheters [facility] Peripheral IV Urinary Cath still in place: No Assessment/Plan Chief Complaint/Hosp Course ASSESSMENT AND PLAN: 1. Right flank pain: Likely secondary to portal vein thrombosis. Her biliary stent has also migrated to the colon. - May be secondary to history of hepatocellular carcinoma. -Follow-up GI recommendations, status post ERCP -ERCP demonstrated No evidence of significant obstruction requiring stenting at this time, Dilated biliary tree with adequate drainage. - Pain control medications. -Continue broad spectrum antibiotics for now. - Follow up UA and urine culture results. - Tylenol p.r.n. pain and fevers and Motrin for pain control, IV fluids as well. -Vascular surgeon has been consulted regarding portal vein thrombosis 2. History of hepatocellular carcinoma. Passenger Screener and airline transport pilot oncologist has been consulted - We will continue to monitor for now. 3. Type 2 diabetes. Last A1c 7.5. - Continue sliding scale insulin. 3. History of thrombocytopenia. Again, most likely secondary to the patient's liver disease. She has had coagulopathy in the past. - Continue to monitor for now. No signs of any bleeding. Avoid anticoagulants at this time. 4. Prior history of UTI, enterococcus-patient did complain of dysuria - follow up UA and urine culture 5. GI prophylaxis ; PPI 6. Deep venous thrombosis prophylaxis, sequential compression devices. Plan to discharge home tomorrow if cleared by special police and vascular surgeon Problems: Subjective 24 Hr Interval Summary Free Text/Dictation Patient denies of any chest pain or shortness of breath Minimal abdominal discomfort Tolerating oral intake Exam/Review of Systems Vital Signs Vitals Vital Signs Date Time Temp Pulse Resp B/P Pulse Ox O2 Delivery O2 Flow Rate FiO2 01/15/17 07:38 98.4 61 18 124/59 97 01/15/17 00:20 Room Air Intake and Output 01/14/17 01/14/17 01/15/17 15:00 23:00 07:00 Intake Total 610 ml 840 ml 1195 ml Output Total 800 ml Balance 610 ml 40 ml 1195 ml Exam General: The patient is well-developed, Not in acute distress. HEENT: Atraumatic, normocephalic. The pupils are equal and round . Neck: Supple with full range of motion. Chest: Normal expansion of the thorax during inspiration Lungs: Clear to auscultation bilaterally Heart: Normal S1-S2, Regular rhythm and rate. Abdomen: Soft , nontender, ascites, bowel sounds are present. Extremities: Normal to inspection, no edema no cyanosis Neurologic: Normal mental status,The patient is awake, alert and oriented . Results Result Diagram: 01/15/17 0447 01/15/17 0447 Results 24 hrs Laboratory Tests Test 01/14/17 16:25 01/14/17 17:46 01/14/17 20:26 01/14/17 22:02 Prothrombin Time 23.8 H Prothrombin Time Ratio 1.9 INR International Normalized Ratio 2.10 Activated Partial Thromboplast Time 45.7 H Bedside Glucose 89 93 100 Test 01/15/17 04:47 01/15/17 08:26 01/15/17 12:35 White Blood Count 2.6 L Red Blood Count 2.66 L Hemoglobin 8.2 L Hematocrit 25.4 L Mean Corpuscular Volume 95.5 Mean Corpuscular Hemoglobin 30.8 Mean Corpuscular Hemoglobin Concent 32.3 Red Cell Distribution Width 19.0 H Platelet Count 35 #L Mean Platelet Volume 12.3 H Neutrophils % 74.6 Lymphocytes % 17.4 Monocytes % 6.8 Eosinophils % 0.4 Basophils % 0.0 Nucleated Red Blood Cells % 0.0 Neutrophils # 2.0 Lymphocytes # 0.5 L Monocytes # 0.2 L Eosinophils # 0.0 Basophils # 0.0 Nucleated Red Blood Cells # 0.0 Sodium Level 134 L Potassium Level 3.8 Chloride Level 108 Carbon Dioxide Level 20 L Anion Gap 10 # Blood Urea Nitrogen 8 Creatinine 0.55 Glucose Level 173 Calcium Level 7.1 L Bedside Glucose 136 242 H Medications Medications Current Medications Nitroglycerin (Nitroglycerin (Sl Tab) 0.4 Mg) 1 tab Q5M PRN SL ANGINA; Start at 17:30 Furosemide (Lasix) 40 mg DAILY@06 PO Last administered on 01/15/17 05:22; Admin Dose 40 MG; Start 01/12/17 at 06:00 Lactulose (Enulose) 10 gm TID PO Last administered on 01/15/17 12:44; Admin Dose 10 GM; Start 01/11/17 at 21:00 Pantoprazole (Protonix Tab) 40 mg DAILY@06 PO Last administered on 01/15/17 05 :21; Admin Dose 40 MG; Start 01/12/17 at 06:00 Miscellaneous Information 1 ea NOTE XX ; Start 01/11/17 at 17:30 Glucose (Glutose) 15 gm Q15M PRN PO DECREASED GLUCOSE; Start 01/11/17 at 17:30 Glucose (Glutose) 22.5 gm Q15M PRN PO DECREASED GLUCOSE; Start 01/11/17 at 17:30 Dextrose (D50w Syringe) 25 ml Q15M PRN IV DECREASED GLUCOSE; Start 01/11/17 at 17:30 Dextrose (D50w Syringe) 50 ml Q15M PRN IV DECREASED GLUCOSE; Start 01/11/17 at 17:30 Glucagon (Glucagen) 1 mg Q15M PRN IM DECREASED GLUCOSE; Start 01/11/17 at 17:30 Glucose (Glutose) 15 gm Q15M PRN BUCCAL DECREASED GLUCOSE; Start 01/11/17 at 17: 30 Eye Lubricant (Artificial Tears Oph) 2 drop Q6H PRN BOTH EYES DRY EYES; Start 01/11/17 at 19:30 Insulin Glargine (Lantus) 15 unit QHS SC Last administered on 01/13/17 20:24; Admin Dose 15 UNIT; Start 01/11/17 at 21:00 Insulin Aspart (Novolog Insulin Pen) NOVOLOG *MILD* ALGORI... Q4 SC Last administered on 01/12/17 18:03; Admin Dose 1 UNIT; Start 01/12/17 at 01:00; Status Future Hold Diagnostic Test (Pha) 1 ea 1 ea 02 XX ; Start 01/13/17 at 02:00; Status Future Hold Sodium Chloride (NS) 1,000 ml @ 70 mls/hr [id number] IV Last administered on 01/14 13:54; Admin Dose 70 MLS/HR; Start 01/12/17 at 02:30 Morphine Sulfate 2 mg 2 mg Q4H PRN IV PAIN Last administered on 01/15/17 09:52 ; Admin Dose 2 MG; Start 01/12/17 at 22:30 Ciprofloxacin/ Dextrose (Cipro Ivpb) 200 ml @ 200 mls/hr Q12 IVPB Last administered on 01/15/17 09:36; Admin Dose 200 MLS/HR; Start 01/13/17 at 21:00 Simethicone (Mylicon) 80 mg Q6H PRN PO DISTENSION/GAS/BLOATING Last administered on 01/14/17t 22:40; Admin Dose 80 MG; Start 01/14/17 at 23:00 Lorazepam (Ativan) 0.5 mg Q6H PRN PO ANXIETY; Start 01/15/17 at 12:00 HANK HANSEN MD Jan 15, 2017 13:35
--- NOTE | 2017-01-15 13:43 | PN ---
Date/Time of Note Date/Time of Note DATE: 01/15/17 TIME: 13:42 Assessment/Plan Lines/Catheters IV Catheter Type (from Nrsg): Peripheral IV Friedman in Place (from Nrsg): No Subjective 24 Hr Interval Summary Constitutional: improved Pain Control: mild Exam/Review of Systems Vital Signs Vitals Vital Signs Date Time Temp Pulse Resp B/P Pulse Ox O2 Delivery O2 Flow Rate FiO2 01/15/17 07:38 98.4 61 18 124/59 97 01/15/17 00:20 Room Air Intake and Output 01/14/17 01/14/17 01/15/17 15:00 23:00 07:00 Intake Total 610 ml 840 ml 1195 ml Output Total 800 ml Balance 610 ml 40 ml 1195 ml Exam ENMT: mucosa pink and moist, nl external ears & nose, nl lips & teeth, nl nasal mucosa & septum Neck: non-tender, supple Respiratory: clear to auscultation, normal air movement Cardiovascular: nl pulses, regular rate and rhythm Gastrointestinal: nl liver, spleen, non-tender, soft Results Result Diagram: 01/15/17 0447 01/15/17 0447 LAVELLE MCMAHON MD Jan 15, 2017 13:42
--- NOTE | 2017-01-15 13:57 | CONS ---
Date/Time of Note Date/Time of Note DATE: 01/15/17 TIME: 13:51 Assessment/Plan Assessment/Plan Additional Assessment/Plan 57-year-old female, with history of hepatocellular carcinoma diabetes patient is now admitted because of hematochezia elevation of the of the PT and low- grade anemia patient was found to have thrombosis of the portal vein. Patient has complete thrombosis of the portal vein in addition to liver cirrhosis She is already anticoagulated with the elevation of the PT and INR With monitor the coagulation status no further surgery needed at this time. Consultation Date/Type/Reason Admit Date/Time Jan 11, 2017 at 15:55 Date of Consultation: Jan 15, 2017 Reason for Consultation Portal vein thrombosis Constitutional: improved, no complaints Eyes: no complaints, No discharge, No other, No pain, No redness, No visual change ENT: no complaints, No bleeding, No congestion, No discharge, No dysphagia, No other, No pain, No sore throat Respiratory: no complaints, No cough, No other, No pain, No pleuritic pain, No shortness of breath, No sputum, No wheezing Cardiovascular: no complaints, No chest pain, No edema, No lightheadedness, No orthopenea, No other, No palpitations, No paroxysmal nocturnal dyspnea Gastrointestinal: blood, pain, No constipation, No decreased appetite, No diarrhea, No flatus, No nausea, No no complaints, No other, No passing stool, No vomiting Genitourinary: no complaints, No bleeding, No discharge, No dysuria, No flank pain, No hematuria, No other Musculoskeletal: no complaints, No back pain, No bone/joint pain, No neck pain, No other, No restricted range of motion, No swelling Skin: no complaints Neurologic: no complaints Endocrine: no complaints Lymphatic: no complaints Psychological: nl mood/affect, no complaints Immunologic: no complaints Past Medical History Medical History: diabetes, gallstones, other (hepatocellular ca) Past Surgical History Past Surgical Hx: endoscopy (ercp) Social History Alcohol Use: none Smoking Status: Never smoker Drug Use: none Exam/Review of Systems Vital Signs Vitals Vital Signs Date Time Temp Pulse Resp B/P Pulse Ox O2 Delivery O2 Flow Rate FiO2 01/15/17 07:38 98.4 61 18 124/59 97 01/15/17 00:20 Room Air Intake and Output 01/14/17 01/14/17 01/15/17 15:00 23:00 07:00 Intake Total 610 ml 840 ml 1195 ml Output Total 800 ml Balance 610 ml 40 ml 1195 ml Exam Head: atraumatic, normocephalic Eyes: EOMI, PERRL, nl conjunctiva, nl lids, nl sclera ENMT: nl external ears & nose, nl lips & teeth, nl nasal mucosa & septum Neck: non-tender, supple Respiratory: clear to auscultation, normal air movement Cardiovascular: nl pulses, regular rate and rhythm Gastrointestinal: nl liver, spleen, non-tender, soft Results Result Diagram: 01/15/177 01/15/17446 Results 24 hrs Laboratory Tests Test 01/14/17 16:25 01/14/17 17:46 01/14/17 20:26 01/14/17 22:02 Prothrombin Time 23.8 H Prothrombin Time Ratio 1.9 INR International Normalized Ratio 2.10 Activated Partial Thromboplast Time 45.7 H Bedside Glucose 89 93 100 Test 01/15/17 04:47 01/15/17 08:26 01/15/17 12:35 White Blood Count 2.6 L Red Blood Count 2.66 L Hemoglobin 8.2 L Hematocrit 25.4 L Mean Corpuscular Volume 95.5 Mean Corpuscular Hemoglobin 30.8 Mean Corpuscular Hemoglobin Concent 32.3 Red Cell Distribution Width 19.0 H Platelet Count 35 #L Mean Platelet Volume 12.3 H Neutrophils % 74.6 Lymphocytes % 17.4 Monocytes % 6.8 Eosinophils % 0.4 Basophils % 0.0 Nucleated Red Blood Cells % 0.0 Neutrophils # 2.0 Lymphocytes # 0.5 L Monocytes # 0.2 L Eosinophils # 0.0 Basophils # 0.0 Nucleated Red Blood Cells # 0.0 Sodium Level 134 L Potassium Level 3.8 Chloride Level 108 Carbon Dioxide Level 20 L Anion Gap 10 # Blood Urea Nitrogen 8 Creatinine 0.55 Glucose Level 173 Calcium Level 7.1 L Bedside Glucose 136 242 H Medications Medications Current Medications Nitroglycerin (Nitroglycerin (Sl Tab) 0.4 Mg) 1 tab Q5M PRN SL ANGINA; Start at 17:30 Furosemide (Lasix) 40 mg DAILY@06 PO Last administered on 01/15/17t 05:22; Admin Dose 40 MG; Start 01/12/17 at 06:00 Lactulose (Enulose) 10 gm TID PO Last administered on 01/15/17 12:44; Admin Dose 10 GM; Start 01/11/17 at 21:00 Pantoprazole (Protonix Tab) 40 mg DAILY@06 PO Last administered on 01/15/17 05 :21; Admin Dose 40 MG; Start 01/12/17 at 06:00 Miscellaneous Information 1 ea NOTE XX ; Start 01/11/17 at 17:30 Glucose (Glutose) 15 gm Q15M PRN PO DECREASED GLUCOSE; Start 01/11/17 at 17:30 Glucose (Glutose) 22.5 gm Q15M PRN PO DECREASED GLUCOSE; Start 01/11/17 at 17:30 Dextrose (D50w Syringe) 25 ml Q15M PRN IV DECREASED GLUCOSE; Start 01/11/17 at 17:30 Dextrose (D50w Syringe) 50 ml Q15M PRN IV DECREASED GLUCOSE; Start 01/11/17 at 17:30 Glucagon (Glucagen) 1 mg Q15M PRN IM DECREASED GLUCOSE; Start 01/11/17 at 17:30 Glucose (Glutose) 15 gm Q15M PRN BUCCAL DECREASED GLUCOSE; Start 01/11/17 at 17: 30 Eye Lubricant (Artificial Tears Oph) 2 drop Q6H PRN BOTH EYES DRY EYES; Start 01/11/17 at 19:30 Insulin Glargine (Lantus) 15 unit QHS SC Last administered on 01/13/17 20:24; Admin Dose 15 UNIT; Start 01/11/17 at 21:00 Insulin Aspart (Novolog Insulin Pen) NOVOLOG *MILD* ALGORI... Q4 SC Last administered on 01/12/17 18:03; Admin Dose 1 UNIT; Start 01/12/17 at 01:00; Status Future Hold Diagnostic Test (Pha) 1 ea 1 ea 02 XX ; Start 01/13/17 at 02:00; Status Future Hold Sodium Chloride (NS) 1,000 ml @ 70 mls/hr [id number] IV Last administered on 01/14 13:54; Admin Dose 70 MLS/HR; Start 01/12/17 at 02:30 Morphine Sulfate 2 mg 2 mg Q4H PRN IV PAIN Last administered on 01/15/17 09:52 ; Admin Dose 2 MG; Start 01/12/17 at 22:30 Ciprofloxacin/ Dextrose (Cipro Ivpb) 200 ml @ 200 mls/hr Q12 IVPB Last administered on 01/15/17 09:36; Admin Dose 200 MLS/HR; Start 01/13/17 at 21:00 Simethicone (Mylicon) 80 mg Q6H PRN PO DISTENSION/GAS/BLOATING Last administered on 01/14/17 22:40; Admin Dose 80 MG; Start 01/14/17 at 23:00 Lorazepam (Ativan) 0.5 mg Q6H PRN PO ANXIETY; Start 01/15/17 at 12:00 LAVELLE MCMAHON MD Jan 15, 2017 13:57
--- NOTE | 2017-01-15 15:18 | PN ---
Date/Time of Note Date/Time of Note DATE: 01/15/17 TIME: 15:12 Assessment/Plan VTE Prophylaxis VTE Prophylaxis Intervention: ambulation Lines/Catheters IV [facility] (from [facility] Peripheral IV Urinary Cath still in place: No Assessment/Plan Assessment/Plan Assessment Right flank abdominal pain/post migration of biliary Wallstent ERCP No evidence of significant obstruction requiring stenting at this time Dilated biliary tree with adequate drainage * Anemia Chronic * Portal vein thrombosis by CT scan * Diabetes mellitus * History of liver carcinoma * History of ERCP and Stent placement Plan * continue present management * will progress diet * Case discussed with Dr Singh * further orders will depend on clinical course Subjective 24 Hr Interval Summary Free Text/Dictation * Course reviewed with RN * Patient seen and examined * Denies abdominal pain * ERCP No evidence of significant obstruction requiring stenting at this time Dilated biliary tree with adequate drainage Exam/Review of Systems Vital Signs Vitals Vital Signs Date Time Temp Pulse Resp B/P Pulse Ox O2 Delivery O2 Flow Rate FiO2 01/15/17 07:38 98.4 61 18 124/59 97 01/15/17 00:20 Room Air Intake and Output 01/14/17 01/14/17 01/15/17 14:59 22:59 06:59 Intake Total 610 ml 840 ml 1195 ml Output Total 800 ml Balance 610 ml 40 ml 1195 ml Exam Constitutional: alert, oriented Neck: non-tender, supple Respiratory: clear to auscultation, normal air movement Gastrointestinal: non-tender, soft Musculoskeletal: nl extremities to inspection, nl gait and stance Extremities: normal pulses Neurological: nl speech, nl strength Skin: nl turgor, No rash or lesions Lymph: nl lymph nodes Results Result Diagram: 01/15/17 0447 01/15/17 0447 Results 24 hrs Laboratory Tests Test 01/14/17 16:25 01/14/17 17:46 01/14/17 20:26 01/14/17 22:02 Prothrombin Time 23.8 H Prothrombin Time Ratio 1.9 INR International Normalized Ratio 2.10 Activated Partial Thromboplast Time 45.7 H Bedside Glucose 89 93 100 Test 01/15/17 04:47 01/15/17 08:26 01/15/17 12:35 White Blood Count 2.6 L Red Blood Count 2.66 L Hemoglobin 8.2 L Hematocrit 25.4 L Mean Corpuscular Volume 95.5 Mean Corpuscular Hemoglobin 30.8 Mean Corpuscular Hemoglobin Concent 32.3 Red Cell Distribution Width 19.0 H Platelet Count 35 #L Mean Platelet Volume 12.3 H Neutrophils % 74.6 Lymphocytes % 17.4 Monocytes % 6.8 Eosinophils % 0.4 Basophils % 0.0 Nucleated Red Blood Cells % 0.0 Neutrophils # 2.0 Lymphocytes # 0.5 L Monocytes # 0.2 L Eosinophils # 0.0 Basophils # 0.0 Nucleated Red Blood Cells # 0.0 Sodium Level 134 L Potassium Level 3.8 Chloride Level 108 Carbon Dioxide Level 20 L Anion Gap 10 # Blood Urea Nitrogen 8 Creatinine 0.55 Glucose Level 173 Calcium Level 7.1 L Bedside Glucose 136 242 H Medications Medications Current Medications Nitroglycerin (Nitroglycerin (Sl Tab) 0.4 Mg) 1 tab Q5M PRN SL ANGINA; Start at 17:30 Furosemide (Lasix) 40 mg DAILY@06 PO Last administered on 01/15/17 05:22; Admin Dose 40 MG; Start 01/12/17 at 06:00 Lactulose (Enulose) 10 gm TID PO Last administered on 01/15/17 12:44; Admin Dose 10 GM; Start 01/11/17 at 21:00 Pantoprazole (Protonix Tab) 40 mg DAILY@06 PO Last administered on 01/15/17 05 :21; Admin Dose 40 MG; Start 01/12/17 at 06:00 Miscellaneous Information 1 ea NOTE XX ; Start 01/11/17 at 17:30 Glucose (Glutose) 15 gm Q15M PRN PO DECREASED GLUCOSE; Start 01/11/17 at 17:30 Glucose (Glutose) 22.5 gm Q15M PRN PO DECREASED GLUCOSE; Start 01/11/17 at 17:30 Dextrose (D50w Syringe) 25 ml Q15M PRN IV DECREASED GLUCOSE; Start 01/11/17 at 17:30 Dextrose (D50w Syringe) 50 ml Q15M PRN IV DECREASED GLUCOSE; Start 01/11/17 at 17:30 Glucagon (Glucagen) 1 mg Q15M PRN IM DECREASED GLUCOSE; Start 01/11/17 at 17:30 Glucose (Glutose) 15 gm Q15M PRN BUCCAL DECREASED GLUCOSE; Start 01/11/17 at 17: 30 Eye Lubricant (Artificial Tears Oph) 2 drop Q6H PRN BOTH EYES DRY EYES; Start 01/11/17 at 19:30 Insulin Glargine (Lantus) 15 unit QHS SC Last administered on 01/13/17 20:24; Admin Dose 15 UNIT; Start 01/11/17 at 21:00 Insulin Aspart (Novolog Insulin Pen) NOVOLOG *MILD* ALGORI... Q4 SC Last administered on 01/12/17 18:03; Admin Dose 1 UNIT; Start 01/12/17 at 01:00; Status Future Hold Diagnostic Test (Pha) 1 ea 1 ea 02 XX ; Start 01/13/17 at 02:00; Status Future Hold Sodium Chloride (NS) 1,000 ml @ 70 mls/hr [id number] IV Last administered on 01/14 13:54; Admin Dose 70 MLS/HR; Start 01/12/17 at 02:30 Morphine Sulfate 2 mg 2 mg Q4H PRN IV PAIN Last administered on 01/15/17 09:52 ; Admin Dose 2 MG; Start 01/12/17 at 22:30 Ciprofloxacin/ Dextrose (Cipro Ivpb) 200 ml @ 200 mls/hr Q12 IVPB Last administered on 01/15/17 09:36; Admin Dose 200 MLS/HR; Start 01/13/17 at 21:00 Simethicone (Mylicon) 80 mg Q6H PRN PO DISTENSION/GAS/BLOATING Last administered on 01/14/17 22:40; Admin Dose 80 MG; Start 01/14/17 at 23:00 Lorazepam (Ativan) 0.5 mg Q6H PRN PO ANXIETY; Start 01/15/17 at 12:00 CURRY MIJARES NP Jan 15, 2017 15:18
[2017-01-15 20:29] VITALS: BP 108/52; RESP 20
[2017-01-15] MEDS: INSULIN GLARGINE [LANtus] 3 ML PEN SC SCH (20:31)
[2017-01-16] MEDS: FUROSEMIDE 40 MG TAB PO SCH (06:02)
[2017-01-16] MEDS: PANTOPRAZOLE (EC) 40 MG TAB PO SCH (06:02)
[2017-01-16] MEDS: SOD CHLORIDE 0.9% 1,000 ML IV SCH (06:36)
[2017-01-16] MEDS: INSULIN ASPART [NOVOLOG] 3 ML PEN SC SCH ×3 (07:50→17:56)
[2017-01-16 07:53] VITALS: BP 126/59; RESP 18
[2017-01-16 08:33] LABS: ADD SCAN DIFF NO
[2017-01-16] MEDS: CIPROFLOXACIN 400MG/D5W 200 ML IVPB SCH (08:43)
[2017-01-16] MEDS: LACTULOSE 30ML CUP PO SCH ×2 (08:43→12:46)
[2017-01-16 08:48] LABS: ABNORMAL IP MESSAGE 1; BASOPHILS % 0.4 % (0.0-2.0); EOSINOPHILS % 1.4 % (0.0-7.0); HEMATOCRIT 27.5 % (37.0-47.0); HEMOGLOBIN 8.9 g/dl (12.0-16.0); LYMPHOCYTES # 0.6 10^3/ul (0.8-2.9); LYMPHOCYTES % 21.9 % (15.0-51.0); MEAN CORPUSCULAR HEMOGLOBIN 30.6 pg (29.0-33.0); MEAN CORPUSCULAR HGB CONC 32.4 g/dl (32.0-37.0); MEAN CORPUSCULAR VOLUME 94.5 fl (82.0-101.0); MEAN PLATELET VOLUME 11.4 fl (7.4-10.4); MONOCYTE # 0.3 10^3/ul (0.3-0.9); MONOCYTES % 10.1 % (0.0-11.0); NEUTROPHIL # 1.8 10^3/ul (1.6-7.5); NEUTROPHILS % 65.8 % (39.0-77.0); RED BLOOD COUNT 2.91 10^6/ul (4.20-5.40); RED CELL DISTRIBUTION WIDTH 19.3 % (11.5-14.5); WHITE BLOOD COUNT 2.8 10^3/ul (4.8-10.8)
[2017-01-16 09:02] LABS: PLATELET COUNT 40 10^3/UL (140-415)
[2017-01-16 09:20] LABS: CALCIUM 7.9 mg/dl (8.4-10.2); CREATININE 0.56 mg/dl (0.44-1.00); POTASSIUM 3.4 mmol/L (3.5-5.1)
--- NOTE | 2017-01-16 11:21 | PN ---
Date/Time of Note Date/Time of Note DATE: 01/16/17 TIME: 11:19 Assessment/Plan Lines/Catheters IV Catheter Type (from [facility]): Peripheral IV Friedman in Place (from [facility]): No Assessment/Plan Chief Complaint/Hosp Course 57-year-old female, with history of hepatocellular carcinoma diabetes patient is now admitted because of hematochezia elevation of the of the PT and low- grade anemia patient was found to have thrombosis of the portal vein. Patient has complete thrombosis of the portal vein in addition to liver cirrhosis She is already anticoagulated with the elevation of the PT and INR is 2.1 With monitor the coagulation status no further surgery needed at this time. Problems: Subjective 24 Hr Interval Summary Constitutional: BM, ambulates, flatus, improved, no complaints, urine output Pain Control: well controlled Exam/Review of Systems Vital Signs Vitals Vital Signs Date Time Temp Pulse Resp B/P Pulse Ox O2 Delivery O2 Flow Rate FiO2 01/16/17 07:53 98.4 76 18 126/59 99 01/15/17 00:20 Room Air Intake and Output 01/15/17 01/15/17 01/16/17 15:00 23:00 07:00 Intake Total 200 ml 1930 ml 940 ml Balance 200 ml 1930 ml 940 ml Exam ENMT: mucosa pink and moist, nl external ears & nose, nl lips & teeth, nl nasal mucosa & septum Neck: non-tender, supple Respiratory: clear to auscultation, normal air movement Cardiovascular: nl pulses, regular rate and rhythm Results Result Diagram: 01/16/17 0820 01/16/17 0820 LAVELLE MCMAHON MD Jan 16, 2017 11:21
[2017-01-16] MEDS: morphine 2 MG INJ IV PRN ×2 (12:45→16:31)
--- NOTE | 2017-01-16 14:03 | PDOCDIS ---
Discharge Instructions CONDITION Patient Condition: Good HOME CARE INSTRUCTIONS: Special Diet: 1800 ADA ACTIVITY: Activity Restrictions: Slowly Increase Activity Rest between Activity Avoid heavy lifting Avoid Heavy Housework FOLLOW UP/APPOINTMENTS Follow-up Plan Follow up with primary care physician as outpatient Follow up with commodity director oncologist at [facility] Follow up with aircraft fuselage framer at [facility] HANK HANSEN MD Jan 16, 2017 14:03
[2017-01-16] MEDS ORDERED: CIPR500T4 PO (14:04)
[2017-01-16] MEDS ORDERED: POTASSIUM CHLORIDE (SR) 10 MEQ TAB PO ONE (14:30)
--- NOTE | 2017-01-16 14:41 | PN ---
Date/Time of Note Date/Time of Note DATE: 01/16/17 TIME: 14:38 Assessment/Plan VTE Prophylaxis VTE Prophylaxis Intervention: ambulation Lines/Catheters IV [facility] (from [facility] Peripheral IV Urinary Cath still in place: No Assessment/Plan Assessment/Plan assessment Right flank abdominal pain/post migration of biliary Wallstent ERCP No evidence of significant obstruction requiring stenting at this time Dilated biliary tree with adequate drainage * Anemia Chronic * Portal vein thrombosis by CT scan * Diabetes mellitus * History of liver carcinoma * History of ERCP and Stent placement Plan * d/c KUB * stable for outpatient management * Case discussed with Dr Singh Subjective 24 Hr Interval Summary Free Text/Dictation * course reviewed with RN * Patient seen and examined * No untoward events overnight Exam/Review of Systems Vital Signs Vitals Vital Signs Date Time Temp Pulse Resp B/P Pulse Ox O2 Delivery O2 Flow Rate FiO2 01/16/17 07:53 98.4 76 18 126/59 99 01/15/17 00:20 Room Air Intake and Output 01/15/17 01/15/17 01/16/17 15:00 23:00 07:00 Intake Total 200 ml 1930 ml 940 ml Balance 200 ml 1930 ml 940 ml Exam Constitutional: alert, oriented Eyes: nl conjunctiva Neck: non-tender, supple Respiratory: clear to auscultation, normal air movement Cardiovascular: nl pulses, regular rate and rhythm Gastrointestinal: non-tender, soft Musculoskeletal: nl extremities to inspection, nl gait and stance Extremities: normal pulses Neurological: nl speech, nl strength Skin: nl turgor, No rash or lesions Lymph: nl lymph nodes Results Result Diagram: 01/16/17 0820 01/16/17 0820 Results 24 hrs Laboratory Tests Test 01/15/17 17:45 01/15/17 20:14 01/16/17 08:20 01/16/17 08:42 Bedside Glucose 259 H 231 H 119 White Blood Count 2.8 L Red Blood Count 2.91 L Hemoglobin 8.9 L Hematocrit 27.5 L Mean Corpuscular Volume 94.5 Mean Corpuscular Hemoglobin 30.6 Mean Corpuscular Hemoglobin Concent 32.4 Red Cell Distribution Width 19.3 H Platelet Count 40 L Mean Platelet Volume 11.4 H Neutrophils % 65.8 Lymphocytes % 21.9 Monocytes % 10.1 Eosinophils % 1.4 Basophils % 0.4 Nucleated Red Blood Cells % 0.0 Neutrophils # 1.8 Lymphocytes # 0.6 L Monocytes # 0.3 Eosinophils # 0.0 Basophils # 0.0 Nucleated Red Blood Cells # 0.0 Sodium Level 131 L Potassium Level 3.4 L Chloride Level 105 Carbon Dioxide Level 26 Anion Gap 3 L Blood Urea Nitrogen 5 L Creatinine 0.56 Glucose Level 111 # Calcium Level 7.9 L Test 01/16/17 12:34 Bedside Glucose 202 Medications Medications Current Medications Nitroglycerin (Nitroglycerin (Sl Tab) 0.4 Mg) 1 tab Q5M PRN SL ANGINA; Start at 17:30 Furosemide (Lasix) 40 mg DAILY@06 PO Last administered on 01/16/17 06:02; Admin Dose 40 MG; Start 01/12/17 at 06:00 Lactulose (Enulose) 10 gm TID PO Last administered on 01/16/17 12:46; Admin Dose 10 GM; Start 01/11/17 at 21:00 Pantoprazole (Protonix Tab) 40 mg DAILY@06 PO Last administered on 01/16/17 06 :02; Admin Dose 40 MG; Start 01/12/17 at 06:00 Miscellaneous Information 1 ea NOTE XX ; Start 01/11/17 at 17:30 Glucose (Glutose) 15 gm Q15M PRN PO DECREASED GLUCOSE; Start 01/11/17 at 17:30 Glucose (Glutose) 22.5 gm Q15M PRN PO DECREASED GLUCOSE; Start 01/11/17 at 17:30 Dextrose (D50w Syringe) 25 ml Q15M PRN IV DECREASED GLUCOSE; Start 01/11/17 at 17:30 Dextrose (D50w Syringe) 50 ml Q15M PRN IV DECREASED GLUCOSE; Start 01/11/17 at 17:30 Glucagon (Glucagen) 1 mg Q15M PRN IM DECREASED GLUCOSE; Start 01/11/17 at 17:30 Glucose (Glutose) 15 gm Q15M PRN BUCCAL DECREASED GLUCOSE; Start 01/11/17 at 17: 30 Eye Lubricant (Artificial Tears Oph) 2 drop Q6H PRN BOTH EYES DRY EYES; Start 01/11/17 at 19:30 Insulin Glargine (Lantus) 15 unit QHS SC Last administered on 01/15/17 20:31; Admin Dose 15 UNIT; Start 01/11/17 at 21:00 Insulin Aspart (Novolog Insulin Pen) NOVOLOG *MILD* ALGORI... Q4 SC Last administered on 01/12/17 18:03; Admin Dose 1 UNIT; Start 01/12/17 at 01:00; Status Future Hold Diagnostic Test (Pha) 1 ea 1 ea 02 XX ; Start 01/13/17 at 02:00; Status Future Hold Sodium Chloride (NS) 1,000 ml @ 70 mls/hr [id number] IV Last administered on 01/15 15:22; Admin Dose 70 MLS/HR; Start 01/12/17 at 02:30 Morphine Sulfate 2 mg 2 mg Q4H PRN IV PAIN Last administered on 01/16/17 12:45 ; Admin Dose 2 MG; Start 01/12/17 at 22:30 Ciprofloxacin/ Dextrose (Cipro Ivpb) 200 ml @ 200 mls/hr Q12 IVPB Last administered on 01/16/17 08:43; Admin Dose 200 MLS/HR; Start 01/13/17 at 21:00 Simethicone (Mylicon) 80 mg Q6H PRN PO DISTENSION/GAS/BLOATING Last administered on 01/14/17 22:40; Admin Dose 80 MG; Start 01/14/17 at 23:00 Lorazepam (Ativan) 0.5 mg Q6H PRN PO ANXIETY; Start 01/15/17 at 12:00 CURRY MIJARES NP Jan 16, 2017 14:40
--- NOTE | 2017-01-16 19:06 | CONS ---
Date/Time of Note Date/Time of Note DATE: 01/16/17 TIME: 19:03 Assessment/Plan Assessment/Plan Chief Complaint/Hosp Course History of hepatocellular carcinoma. Temporary Office Assistant has been consulted MRI REVIEWED DOESN'T REQUIRED ACTIVE MANAGEMENT AT PRESENT - We will continue to monitor for now. Right flank pain: Likely secondary to portal vein thrombosis. Her biliary stent has also migrated to the colon. - May be secondary to history of hepatocellular carcinoma. -Follow-up GI recommendations, for now keep her n.p.o. follow up GI recommendation for possible ERCP - Pain control medications. -Also, we will need to weigh the risks versus benefits of trying to anticoagulate for patient's portal vein thrombosis. The concern is her rectal bleeding, presumably, lower GI bleeding, as well as her thrombocytopenia. We will need to discuss with GI team -Continue broad spectrum antibiotics for now. - Follow up UA and urine culture results. - Tylenol p.r.n. pain and fevers and Motrin for pain control, IV fluids as well. Type 2 diabetes. Last A1c 7.5. - Continue sliding scale insulin. History of thrombocytopenia. Again, most likely secondary to the patient's liver disease. She has had coagulopathy in the past. - Continue to monitor for now. No signs of any bleeding. Avoid anticoagulants at this time. Prior history of UTI, enterococcus-patient did complain of dysuria - follow up UA and urine culture GI prophylaxis ; PPI Deep venous thrombosis prophylaxis, sequential compression devices. Problems: Consultation Date/Type/Reason Admit Date/Time Jan 11, 2017 at 15:55 Initial Consult Date 01/13/17 Type of Consultation: [facility] Referring Provider: HANK HANSEN MD 24 HR Interval Summary Free Text/Dictation ALL NOTED Exam/Review of Systems Vital Signs Vitals Vital Signs Date Time Temp Pulse Resp B/P Pulse Ox O2 Delivery O2 Flow Rate FiO2 01/16/17 07:53 98.4 76 18 126/59 99 01/15/17 00:20 Room Air Intake and Output 01/15/17 01/15/17 01/16/17 15:00 23:00 07:00 Intake Total 200 ml 1930 ml 940 ml Balance 200 ml 1930 ml 940 ml Exam General: The patient is well-developed, Not in acute distress. HEENT: Atraumatic, normocephalic. The pupils are equal and round . Neck: Supple with full range of motion. Chest: Normal expansion of the thorax during inspiration Lungs: Clear to auscultation bilaterally Heart: Normal S1-S2, Regular rhythm and rate. Abdomen: Soft , nontender, ascites, bowel sounds are present. Extremities: Normal to inspection, no edema no cyanosis Neurologic: Normal mental status,The patient is awake, alert and oriented . Results Result Diagram: 01/16/17 0820 01/16/17 0820 Results 24 hrs Laboratory Tests Test 01/15/17 20:14 01/16/17 08:20 01/16/17 08:42 01/16/17 12:34 Bedside Glucose 231 H 119 202 White Blood Count 2.8 L Red Blood Count 2.91 L Hemoglobin 8.9 L Hematocrit 27.5 L Mean Corpuscular Volume 94.5 Mean Corpuscular Hemoglobin 30.6 Mean Corpuscular Hemoglobin Concent 32.4 Red Cell Distribution Width 19.3 H Platelet Count 40 L Mean Platelet Volume 11.4 H Neutrophils % 65.8 Lymphocytes % 21.9 Monocytes % 10.1 Eosinophils % 1.4 Basophils % 0.4 Nucleated Red Blood Cells % 0.0 Neutrophils # 1.8 Lymphocytes # 0.6 L Monocytes # 0.3 Eosinophils # 0.0 Basophils # 0.0 Nucleated Red Blood Cells # 0.0 Sodium Level 131 L Potassium Level 3.4 L Chloride Level 105 Carbon Dioxide Level 26 Anion Gap 3 L Blood Urea Nitrogen 5 L Creatinine 0.56 Glucose Level 111 # Calcium Level 7.9 L Test 01/16/17 17:52 Bedside Glucose 189 Medications Medications Current Medications Nitroglycerin (Nitroglycerin (Sl Tab) 0.4 Mg) 1 tab Q5M PRN SL ANGINA; Start at 17:30 Furosemide (Lasix) 40 mg DAILY@06 PO Last administered on 01/16/17 06:02; Admin Dose 40 MG; Start 01/12/17 at 06:00 Lactulose (Enulose) 10 gm TID PO Last administered on 01/16/17 12:46; Admin Dose 10 GM; Start 01/11/17 at 21:00 Pantoprazole (Protonix Tab) 40 mg DAILY@06 PO Last administered on 01/16/17 06 :02; Admin Dose 40 MG; Start 01/12/17 at 06:00 Miscellaneous Information 1 ea NOTE XX ; Start 01/11/17 at 17:30 Glucose (Glutose) 15 gm Q15M PRN PO DECREASED GLUCOSE; Start 01/11/17 at 17:30 Glucose (Glutose) 22.5 gm Q15M PRN PO DECREASED GLUCOSE; Start 01/11/17 at 17:30 Dextrose (D50w Syringe) 25 ml Q15M PRN IV DECREASED GLUCOSE; Start 01/11/17 at 17:30 Dextrose (D50w Syringe) 50 ml Q15M PRN IV DECREASED GLUCOSE; Start 01/11/17 at 17:30 Glucagon (Glucagen) 1 mg Q15M PRN IM DECREASED GLUCOSE; Start 01/11/17 at 17:30 Glucose (Glutose) 15 gm Q15M PRN BUCCAL DECREASED GLUCOSE; Start 01/11/17 at 17: 30 Eye Lubricant (Artificial Tears Oph) 2 drop Q6H PRN BOTH EYES DRY EYES; Start 01/11/17 at 19:30 Insulin Glargine (Lantus) 15 unit QHS SC Last administered on 01/15/17 20:31; Admin Dose 15 UNIT; Start 01/11/17 at 21:00 Insulin Aspart (Novolog Insulin Pen) NOVOLOG *MILD* ALGORI... Q4 SC Last administered on 01/12/17 18:03; Admin Dose 1 UNIT; Start 01/12/17 at 01:00; Status Future Hold Diagnostic Test (Pha) 1 ea 1 ea 02 XX ; Start 01/13/17 at 02:00; Status Future Hold Sodium Chloride (NS) 1,000 ml @ 70 mls/hr [id number] IV Last administered on 01/15 15:22; Admin Dose 70 MLS/HR; Start 01/12/17 at 02:30 Morphine Sulfate 2 mg 2 mg Q4H PRN IV PAIN Last administered on 01/16/17 16:31 ; Admin Dose 2 MG; Start 01/12/17 at 22:30 Ciprofloxacin/ Dextrose (Cipro Ivpb) 200 ml @ 200 mls/hr Q12 IVPB Last administered on 01/16/17 08:43; Admin Dose 200 MLS/HR; Start 01/13/17 at 21:00 Simethicone (Mylicon) 80 mg Q6H PRN PO DISTENSION/GAS/BLOATING Last administered on 7/11/17at 22:40; Admin Dose 80 MG; Start 01/14/17 at 23:00 Lorazepam (Ativan) 0.5 mg Q6H PRN PO ANXIETY; Start 01/15/17 at 12:00 ROBYN CANTU MD Jan 16, 2017 19:05
--- NOTE | 2017-01-17 06:37 | RADRPT ---
PROCEDURE: XR Abdomen. CLINICAL INDICATION: Abdomen pain. TECHNIQUE: AP supine abdomen x-ray. COMPARISON: 01/14/2017. FINDINGS: The bowel gas pattern is normal with no evidence of obstruction. There is a biliary stent noted in the right lower quadrant as seen previously. Gallstones are prese nt in the right upper quadrant of the abdomen. There are no abnormal calcifications overlying the urinary tracts. The osseus structures are unremarkable. IMPRESSION: 1. Gallstones in the right upper quadrant. 2. Biliary stent in the right lower quadrant. 3. No change from 01/14/2017. RPTAT: QQ .Eric Leone MD, MD Date Time Electronically viewed and signed by .Eric Leone MD, MD on 01/16/2017 16:06 .R/
--- NOTE | 2017-01-26 04:42 | DS ---
DATE OF ADMISSION: 01/11/2017 DATE OF DISCHARGE: 01/16/2017 CONSULTANTS: 1. Joaquín Ng MD 2. Joie Singh MD 3. Miladys Whitaker MD PROCEDURE: ERCP. DISCHARGE DIAGNOSES: 1. Dilated biliary tree with adequate drainage. 2. Right flank pain likely secondary to portal vein thrombosis. ERCP with no evidence of significant obstruction requiring a stent at this time. Dilated biliary tree with adequate drainage. A vascular surgeon was consulted. No indication for surgical intervention. 3. History of hepatocellular carcinoma. 4. Diabetes mellitus type 2. 5. Thrombocytopenia. 6. Urinary tract infection. 7. Essential hypertension. 8. Pancytopenia secondary to liver cirrhosis and hepatocellular carcinoma. 9. Hypokalemia repleted. DISCHARGE MEDICATIONS: 1. Ciprofloxacin. 2. Benazepril. 3. Lasix. 4. Lantus. 5. Lactulose. 6. Reglan. 7. Morphine sulfate. 8. . ALLERGIES: NO KNOWN DRUG ALLERGIES. HOSPITAL COURSE: This is a 57-year-old female with a past medical history of hepatocellular carcinoma and biliary stent, , diabetes mellitus type 2, anemia, cirrhosis who presented to [facility] same day having left flank pain times four days. A CT of the abdomen and pelvis performed showed portal vein thrombosis. She was seen and evaluated by machine brush maker. On this CAT scan, it showed possible displaced biliary stain and history of biliary stricture. As per ERCP there was no evidence of significant obstruction requiring stenting at this time. Dilated biliary tree with adequate drainage. The patient was also seen and evaluated by a vascular surgeon and as per his evaluation, the patient already elevated PT and INR secondary to her history of liver disease and at this time we will monitor coagulation status. No further surgery needed at this time. This was discussed with the family and the patient at the bedside. At this time the patient is medically stable to be discharged home with a close followup with her sheet metal apprentice, primary care physician, machine brush maker and oncologist at [facility]. LABORATORY DATA: Sodium 131, potassium 3.4 which will be repeated, chloride 105, bicarbonate 26. BUN 5, creatinine 0.56, glucose 111, calcium 7.9. WBC 2.8, hemoglobin 8.9, hematocrit 27.5, MCV 94.7, platelets 47. CONDITION ON DISCHARGE: Stable. Dictated By: Dieudonne Zarate MD /brian/karma /Document#: [id number]
== END 2017-01-16 19:00 | disposition home or self-care (01) | DRG 442 ==
LOC: FTE 11:47 → MS1 15:55
PROVIDERS: ADMIT Hospitalist; ATTEND Hospitalist
PROC: 0FJB8ZZ Inspection of Hepatobiliary Duct, Via Natural or Artificial Opening Endoscopic (ICD-10-PCS; principal; 2017-01-14 19:00)
DX: I81 Portal vein thrombosis (principal); D61.818 Other pancytopenia; R18.8 Other ascites; R30.0 Dysuria; I10 Essential (primary) hypertension; E11.9 Type 2 diabetes mellitus without complications; Z79.4 Long term (current) use of insulin; K74.69 Other cirrhosis of liver
CPT/HCPCS: 36415; 74000; 74177; 74181; 74330; 80048; 80053; 80061; 80076; 81003; 82140; 82247; 82248; 82962; 83036; 83690; 83735; 84075; 84100; 84439; 84443; 84450; 84460; 85025; 85610; 85730; 87081; 96374; 96375; J0690; J0744; J1815; J2270; J2405; J2710; J3475; J3480; J7030; J7999; Q9967

== ENCOUNTER 2017-07-08 14:30 | Emergency (ER) | END 2017-07-09 00:25 | disposition left against medical advice (07) ==